=== PATIENT | male | born 1960 | race African-American/Black ===

== ENCOUNTER → 2017-04-20 | Outpatient (CLI) | payer OTHER ==
[~2017-04-20] MED LIST: ALBU8I INH; CLIN1CAP5 PO; VENTAER INH; albuterol sulfate INH
[2017-04-20 09:38] LABS: AUTOMATED NEUTROPHIL # 5.4 TH/MM3 (1.8-7.7); BASOPHIL % 0.5 % (0.0-2.0); EOSINOPHIL % 0.3 % (0.0-4.0); HEMATOCRIT 38.1 % (39.0-51.0); HEMO FLAGS DIFF FINAL; LYMPH % 9.8 % (9.0-44.0); LYMPHOCYTE # 0.7 TH/MM3 (1.0-4.8); MEAN CELL VOLUME 105.8 FL (80.0-100.0); MEAN CORPUSCULAR HEMOGLOBIN 35.9 PG (27.0-34.0); MONO % 10.3 % (0.0-8.0); NEUT % 79.1 % (16.0-70.0); PLATELET COUNT 242 TH/MM3 (150-450); WHITE BLOOD COUNT 6.9 TH/MM3 (4.0-11.0)
[2017-04-20 09:38] LABS: BLOOD, URINE NEG (NEG); GLUCOSE,URINE NEG (NEG); KETONE, URINE NEG (NEG); NITRITE,URINE NEG (NEG); URINE COLOR LIGHT-YELLOW (YELLW/STRAW)
[2017-04-20 09:43] LABS: COMMENT (UR) CULT NOT INDICATED; CULTURE IF INDICATED CULT NOT INDICATED
[2017-04-20 09:51] LABS: APTT (PATIENT) 27.8 SEC (24.3-30.1); INTERNATIONAL NORMALIZED RATIO 0.9 RATIO; PROTHROMBIN TIME - PATIENT 10.4 SEC (9.8-11.6)
--- NOTE | 2017-04-20 09:55 | RADRPT ---
EXAM DATE/TIME: 04/20/2017 09:29 [place] COMPARISON: No previous studies available for comparison. INDICATIONS : Evaluate for pneumonia, pneumothorax, or communicable disease. Pre op for descending colectomy. MEDICAL HISTORY : Asthma. 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 Colon CA. SURGICAL HISTORY : Lymph node removed removed from left neck. ENCOUNTER: Initial ACUITY: 1 day PAIN SCORE: 0/10 LOCATION: chest FINDINGS: PA and lateral views of the chest demonstrate the lungs to be symmetrically aerated without evidence of mass, infiltrate or effusion. The cardiomediastinal contours are unremarkable. Osseous structure s are intact. CONCLUSION: Normal examination for a patient of this age. Adriel Osuna MD on April 20, 2017 at 9:53 Board Certified Radiologist. This report was verified electronically.
[2017-04-20 10:12] LABS: ANION GAP 8 MEQ/L (5-15); AST (GOT) 29 U/L (15-37); BICARBONATE 26.9 MEQ/L (21.0-32.0); BLOOD UREA NITROGEN 9 MG/DL (7-18); CHLORIDE 103 MEQ/L (98-107); GLOMERULAR FILTRATION RATE 117 ML/MIN (>89); GLUCOSE,FASTING 102 MG/DL (74-99); POTASSIUM 4.1 MEQ/L (3.5-5.1); SODIUM (NA) 138 MEQ/L (136-145)
[2017-04-20 10:22] LABS: ALKALINE PHOSPHATASE 86 U/L (45-117); ALT (GPT) 22 U/L (12-78); TOTAL BILIRUBIN ADULT 0.5 MG/DL (0.2-1.0)
--- NOTE | 2017-04-20 21:46 | EKG ---
Date Performed: 04/20/2017 Time Performed: 08:31:24 PTAGE: 56 years EKG: SINUS BRADYCARDIA BORDERLINE ECG PREVIOUS TRACING 02/02/2016 @ 12.54.52 Compared to prior tracing no significant change DOCTOR: Deandre Lam Interpretating Date/Time 04/20/2017 21:45:57
== END ==
LOC: CPRE 08:08
PROVIDERS: ATTEND Colon & Rectal Surgery
DX: Z01.810 Encounter for preprocedural cardiovascular examination (principal); Z01.811 Encounter for preprocedural respiratory examination; Z01.812 Encounter for preprocedural laboratory examination; C20 Malignant neoplasm of rectum; R94.31 Abnormal electrocardiogram [ECG] [EKG]
CPT/HCPCS: 36415; 71020; 80053; 81001; 82378; 85025; 85610; 85730; 93005

== ENCOUNTER 2017-04-27 11:20 | Inpatient (IN) | payer OTHER ==
[~2017-04-27] VITALS: Ht 176.5 cm; Wt 57.7 kg
[~2017-04-27 11:20] MED LIST changes: -ALBU8I INH; -CLIN1CAP5 PO; -albuterol sulfate INH
[2017-04-27] MEDS ORDERED: DEXT 5%-NACL 0.9% 1000 ML INJ 1,000 ML IV SCH (12:30)
[2017-04-27] MEDS ORDERED: LACTATED RINGER'S 1000 ML IV PRN (12:30)
[2017-04-27] MEDS ORDERED: ceFAZolin 1,000 MG/NS 100 ML IV SCH ×2 (12:30)
[2017-04-27] MEDS ORDERED: INSULIN HUMAN REGULAR 1,000 UNITS/10 ML VIAL SQ PRN (12:30)
[2017-04-27] MEDS ORDERED: ALVIMOPAN 12 MG CAPSULE - On Call PO SCH (12:30)
[2017-04-27] MEDS ORDERED: CHLORHEXIDINE GLUCONATE 2 % 1 PACK (2 CLOTHS) TOPICAL PRN (12:30)
[2017-04-27] MEDS ORDERED: SODIUM CHLORID 0.9% 500 ML IV PRN (12:30)
[2017-04-27] MEDS ORDERED: METOPROLOL TARTRATE 25 MG TAB PO PRN (12:30)
[2017-04-27] MEDS ORDERED: METRONIDAZOLE 500 MG/100 ML ISONTONIC SOLN IV SCH (12:30)
[2017-04-27] MEDS ORDERED: POVIDONE IODINE 5% (ANTISEPSIS KIT) 4 APPLICATIONS EACH NARE PRN (12:30)
[2017-04-27] MEDS ORDERED: ACETAMINOPHEN 1000 MG/100 ML 100 ML IV ONE (13:03)
[2017-04-27] MEDS ORDERED: FAMOTIDINE 20 MG/2 ML VIAL ONE (13:04)
[2017-04-27] MEDS ORDERED: HYDROmorphone HCL PF 2 MG/ML VIAL ONE (14:47)
[2017-04-27] MEDS ORDERED: SUGAMMADEX SODIUM 200 MG/2 ML VIAL IV PUSH ONE ×2 (14:47)
[2017-04-27] MEDS ORDERED: DO NOT ADM ANY ANTICOAGULANT DRUGS PRN (15:48)
[2017-04-27] MEDS ORDERED: MORPHINE SULFATE 30 MG/30 ML PCA IV SCH (16:00)
[2017-04-27] MEDS ORDERED: ONDANSETRON HCL 4 MG/2 ML VIAL IV PUSH PRN (16:00)
[2017-04-27] MEDS ORDERED: Post-op Orders (for Pharmacy) MISC XX ONE (16:00)
[2017-04-27] MEDS ORDERED: ENALAPRILAT 1.25 MG/ML VIAL IV PUSH PRN (16:00)
[2017-04-27] MEDS ORDERED: BENZOCAINE 6 MG/MENTHOL 10 MG LOZENGE BUCCAL PRN (16:00)
[2017-04-27] MEDS ORDERED: SODIUM CHLORIDE 0.9% FLUSH 10 ML FLUSH IV FLUSH PRN (16:00)
[2017-04-27] MEDS ORDERED: NALOXONE HCL 0.4 MG/ML AMP IV PUSH PRN (16:00)
[2017-04-27] MEDS ORDERED: POTASSIUM CHLOR 40 MEQ PREMIX 100 ML IV PRN (16:00)
[2017-04-27] MEDS ORDERED: ZOLPIDEM TARTRATE 5 MG TAB PO PRN (16:00)
[2017-04-27] MEDS ORDERED: POTASSIUM CHLOR 20 MEQ PREMIX 100 ML IV PRN (16:00)
[2017-04-27] MEDS ORDERED: D5-NS + KCL 20 MEQ INJ 1,000 ML ONE (16:05)
[2017-04-27] MEDS ORDERED: *morphine SULFATE 8 MG/ML PERIprocedure ONLY ONE ×2 (16:24→17:17)
[2017-04-27 16:46] LABS: AUTOMATED NEUTROPHIL # 8.9 TH/MM3 (1.8-7.7); BASOPHIL % 0.2 % (0.0-2.0); EOSINOPHIL # 0.1 TH/MM3 (0-0.4); EOSINOPHIL % 0.9 % (0.0-4.0); HEMATOCRIT 38.7 % (39.0-51.0); HEMO FLAGS DIFF FINAL; LYMPH % 4.6 % (9.0-44.0); LYMPHOCYTE # 0.4 TH/MM3 (1.0-4.8); MEAN CELL VOLUME 105.8 FL (80.0-100.0); MEAN CORPUSCULAR HEMOGLOBIN 34.9 PG (27.0-34.0); MONO % 2.4 % (0.0-8.0); NEUT % 91.9 % (16.0-70.0); PLATELET COUNT 230 TH/MM3 (150-450); RED BLOOD COUNT 3.66 MIL/MM3 (4.50-5.90); RED CELL DISTRIBUTION WIDTH 12.5 % (11.6-17.2); WHITE BLOOD COUNT 9.7 TH/MM3 (4.0-11.0)
[2017-04-27 17:00] LABS: BICARBONATE 22.6 MEQ/L (21.0-32.0); POTASSIUM 3.6 MEQ/L (3.5-5.1)
[2017-04-27] MEDS: D5-LR + KCL 20 MEQ INJ 1,000 ML IV SCH (17:11)
[2017-04-27] MEDS: METOCLOPRAMIDE HCL 10 MG/2 ML VIAL IVS SCH (17:54)
[2017-04-27 19:00] VITALS: BP 124/75; PULSE 67; PULSE 70; RESP 18; TEMP 97.9; O2SAT 100
[2017-04-27 20:00] VITALS: PULSE 64
[2017-04-27 21:00] VITALS: PULSE 78
[2017-04-27] MEDS: SODIUM CHLORIDE 0.9% FLUSH 10 ML FLUSH IV FLUSH SCH (21:00)
[2017-04-27 22:00] VITALS: PULSE 66; RESP 18
[2017-04-27] MEDS: PCA - TOTAL MG MORPHINE DELIVERED PER SHIFT SCH (22:00)
[2017-04-27] MEDS: ceFAZolin 2 GM PREMIX 50 ML IV SCH (22:06)
[2017-04-27] MEDS: FUROSEMIDE 20 MG/2 ML VIAL IV PUSH SCH (22:06)
[2017-04-27 23:00] VITALS: BP 117/71; PULSE 75; PULSE 80; RESP 18; TEMP 99.2; O2SAT 97
[2017-04-27] MEDS: metroNIDAZOLE 500 MG INJ 100 ML IV SCH (23:15)
[2017-04-28] VITALS (20 sets, daily range): BP systolic 110–119; BP diastolic 55–70; PULSE 68–89; RESP 17–19; TEMP 96.6–99.1; O2SAT 94–99
[2017-04-28] MEDS: METOCLOPRAMIDE HCL 10 MG/2 ML VIAL IVS SCH ×5 (00:38→23:09)
[2017-04-28] MEDS: ceFAZolin 2 GM PREMIX 50 ML IV SCH ×2 (05:24→12:58)
[2017-04-28 05:25] LABS: AUTOMATED NEUTROPHIL # 12.4 TH/MM3 (1.8-7.7); BASOPHIL % 0.2 % (0.0-2.0); HEMATOCRIT 34.7 % (39.0-51.0); HEMO FLAGS DIFF FINAL; LYMPH % 3.6 % (9.0-44.0); LYMPHOCYTE # 0.5 TH/MM3 (1.0-4.8); MEAN CELL VOLUME 105.1 FL (80.0-100.0); MEAN CORPUSCULAR HEMOGLOBIN 34.9 PG (27.0-34.0); MEAN CORPUSCULAR HGB CONC 33.3 % (32.0-36.0); MONO % 5.4 % (0.0-8.0); NEUT % 90.8 % (16.0-70.0); PLATELET COUNT 226 TH/MM3 (150-450); RED BLOOD COUNT 3.31 MIL/MM3 (4.50-5.90); RED CELL DISTRIBUTION WIDTH 12.2 % (11.6-17.2); WHITE BLOOD COUNT 13.7 TH/MM3 (4.0-11.0)
[2017-04-28 05:57] LABS: BICARBONATE 24.4 MEQ/L (21.0-32.0)
[2017-04-28] MEDS: PCA - TOTAL MG MORPHINE DELIVERED PER SHIFT SCH ×2 (06:00→14:00)
[2017-04-28] MEDS: metroNIDAZOLE 500 MG INJ 100 ML IV SCH ×2 (06:10→14:00)
[2017-04-28] MEDS: ALBUTEROL SULFATE 90 MCG/ACT HFA 8 GM INHALER INH PRN ×2 (06:41→14:13)
[2017-04-28] MEDS: PANTOPRAZOLE SODIUM 40 MG VIAL IVP SCH (08:08)
[2017-04-28] MEDS: FUROSEMIDE 20 MG/2 ML VIAL IV PUSH SCH ×2 (08:09→22:23)
--- NOTE | 2017-04-28 08:17 | MP ---
cc: PAULETTE VILLASENOR MD, JOHN T. M.D. PARLI, DR. DATE OF SURGERY 04/27/2017 PREOPERATIVE DIAGNOSIS Rectal cancer POSTOPERATIVE DIAGNOSIS Rectal cancer PROCEDURE 1. Descending colon, sigmoid colon and a rectal resection with low anterior anastomosis. 2. Mobilization of the splenic flexure. 3. Diverting loop ileostomy. ANESTHESIA General tracheal SURGEON Arun Bolton MD LOCAL SALES ASSOCIATE Kenneth Desai MD ESTIMATED BLOOD LOSS 50 cc. OPERATING TIME One hour and 30 minutes. 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 He also was diagnosed at that time with a synchronous rectal cancer. The patient underwent radiation therapy for his had neck lesion and then underwent eventual radiation therapy and chemotherapy for the rectal lesion. The treatment between was delayed somewhat due to the patient and his radiation to his rectum was completed in October of this year. Once that was done, approximately two to three months later, he was evaluated and underwent colonoscopy and biopsy of the residual rectal ulcer which came back as adenocarcinoma residual about two months ago. The patient somewhat delayed his surgery and is now presenting for a low anterior resection. At surgery, exploration of the abdominal cavity revealed that the liver was palpably normal as was the gallbladder. The remainder of the colon and the small bowel, the stomach, pancreas and left kidney were all identified and were normal as well. A full left colectomy was done with a low colorectal anastomosis in the very lower third of the rectum. For this reason, a diverting loop ileostomy was also done which will be temporary. He also underwent splenic flexure mobilization. OPERATING TIME One hour and 30 minutes OPERATIVE TECHNIQUE The patient was placed on the table in the supine position. After adequate general endotracheal anesthesia, the legs were placed in the perineal lithotomy position and the abdomen and perineum were prepped and draped in the usual manner. A midline incision was made from the pubis to the xiphoid on the right side of the umbilicus and carried down through the linea alba and the peritoneal cavity was entered with the above-mentioned findings. Our attention was turned to the sigmoid colon which was mobilized along its peritoneal reflection as was the descending colon and the splenic flexure mobilizing the full splenic flexure and the transverse colon and the omentum from the transverse colon. The sigmoid and would was mobilized down to her rectum and then the left ureter was identified and protected at all times. The inferior mesenteric artery was identified at its takeoff at the bifurcation of the aorta and was doubly clamped, cut and doubly ligated with 0 Vicryl ligature along with the inferior mesenteric vein. Next, the dissection was taken down posteriorly in the retrorectal space to the pelvic floor and then laterally and the lateral pelvic peritoneum was incised bilaterally, identifying both ureters and protecting them at all times. Once the dissection was taken down posterior and laterally, the anterior cul-de-sac was entered and Denonvilliers fascia was divided posterior to the prostate and the dissection was taken down anteriorly to the pelvic floor as well. The lesion was below the cul-de-sac at about 9-10 cm and approximately a 3 cm to 4 cm margin was able to be obtained. A total mesenteric excision was done and the rectum was cleared and the rectum was then divided in its lower third with a contour stapling device. Once this was accomplished, our previously mobilized descending colon and splenic flexure was further mobilized and the dissection was taken up to the middle colic vessels and the marginal vessels. The bowel was then measured for length and was of good quality and the descending colon was divided after placing a pursestring stapling device. The anvil of the 33 Ethicon EEA stapling device was placed in the proximal bowel and the proximal pursestring was tied. Dr. Desai then went below and placed the EEA instrument transanally and the EEA was brought out through the midportion of the contour staple line and the trocar was brought through near one corner and that corner was included in the circular excision. The instrument was connected, closed and fired creating the circumferential anastomosis and both donuts were complete. There was no tension on the anastomosis and the blood supply was excellent. Dr. Desai then did proctosigmoidoscopy insufflating air into the lower rectum and sigmoid colon with saline solution in the pelvis and no air leaks were identified. The abdominal cavity and pelvis with any irrigated with several liters of saline solution, aspirated clean. Hemostasis was maintained throughout with electrocautery and ligature. The patient was very thin and had a very wispy omentum, but the previously mobilized omentum was brought down the left colic gutter and placed in the pelvis. Next, the place for ileostomy was chosen proximal to the ileocecal valve about 6 inches. An opening in the mesentery was made and then a stoma site was made in the right lower quadrant in the lateral portion of the rectus muscle. The ileum was brought out of this stoma site and then the bowels were replaced in abdominal cavity in an field organizer manner. The abdominal cavity was closed in a single layer using double-stranded #1 PDS for the midline. The subcutaneous tissue was irrigated thoroughly with saline solution, aspirated dry and the skin was closed with running 3-0 Vicryl subcuticular suture. The distal limb of the ileostomy was stapled closed with a TX 30 and then the proximal limb was matured with interrupted 3-0 Vicryl sutures creating a 2-1/2 cm nipple and a 57-mm ileostomy appliance was placed. Dressings were applied. Sponge, needle and a counts reported as correct. The estimated blood loss was 50 cc. Operating time was one our and 30 minutes. The patient tolerated the procedure well and left the operating room in good condition. MD BELA Ramos/WILVER /5:01 PM /7:48 AM
[2017-04-28] MEDS: ACETAMINOPHEN/HYDROcodone 325 MG/5 MG TAB PO PRN ×4 (08:58→21:54)
[2017-04-28] MEDS: SODIUM CHLORIDE 0.9% FLUSH 10 ML FLUSH IV FLUSH SCH ×2 (08:59→21:00)
[2017-04-28] MEDS ORDERED: ALVIMOPAN 12 MG CAPSULE - Post-op dosing PO SCH (09:00)
[2017-04-28] MEDS: D5-LR + KCL 20 MEQ INJ 1,000 ML IV SCH ×3 (11:20→22:01)
--- NOTE | 2017-04-28 16:40 | HHI.PR ---
Subjective Remarks Stable. Pain controlled with PO meds. Objective Vital Signs Date Time Temp Pulse Resp B/P (MAP) Pulse Ox O2 Delivery O2 Flow Rate FiO2 04/28/17 15:00 71 04/28/17 15:00 98.8 83 18 117/69 (85) 98 04/28/17 14:18 17 04/28/17 14:00 17 04/28/17 14:00 86 04/28/17 14:00 17 04/28/17 13:00 68 04/28/17 12:00 74 04/28/17 11:00 89 04/28/17 11:00 98.6 79 17 114/70 (85) 96 04/28/17 10:00 84 04/28/17 09:00 88 04/28/17 08:00 80 04/28/17 07:15 77 04/28/17 07:00 98.7 83 18 112/62 (79) 97 04/28/17 06:00 18 04/28/17 06:00 75 04/28/17 06:00 18 04/28/17 05:00 77 04/28/17 04:00 76 04/28/17 03:00 99.1 78 18 110/55 (73) 99 04/28/17 03:00 78 04/28/17 02:00 74 04/28/17 01:00 70 04/28/17 00:00 70 04/27/17 23:00 99.2 75 18 117/71 (86) 97 04/27/17 23:00 80 04/27/17 22:07 18 04/27/17 22:00 18 04/27/17 22:00 66 04/27/17 22:00 18 04/27/17 21:00 78 04/27/17 20:00 64 04/27/17 19:00 97.9 70 18 124/75 (91) 100 04/27/17 19:00 18 04/27/17 19:00 67 04/27/17 18:20 98.0 65 20 144/72 (96) 100 Nasal Cannula 2 04/27/17 18:00 65 20 144/72 (96) 100 Nasal Cannula 2 04/27/17 17:11 20 04/27/17 17:00 73 20 144/64 (90) 99 Nasal Cannula 2 04/27/17 16:45 70 20 154/74 (100) 99 Nasal Cannula 2 I/O 04/27/17 04/27/17 04/27/17 04/28/17 04/28/17 04/28/17 07:00 15:00 23:00 07:00 15:00 23:00 Intake Total 1908 ml 2719 ml 50 ml Output Total 205 ml 2020 ml Balance 1703 ml 699 ml 50 ml Intake Oral 0 ml IV Total 8 ml 2719 ml 50 ml Other 1900 ml Output Urine Total 75 ml 1900 ml Stool Total 0 ml Drainage Total 80 ml 120 ml Estimated Blood Loss 50 ml Result Diagram: 04/28/17 0444 04/28/17 0444 Objective Remarks VS-S Abd: flat,soft,dressing dry Labs:OK I&Os:OK Assessment and Plan Assessment and Plan Stable POD#1 Transfer.CLD,Decrease IVs. D/C mimi ro AM MeadeArun gonsalves MD Apr 28, 2017 16:40
--- NOTE | 2017-04-28 16:42 | PD.WCN.NOT ---
Wound Consult Description: Consult for New Ostomy Teaching of temporary ostomy per Dr Bolton Communicated with: Patient Recommendation: Empty pouch of effluent when 1/3-1/2 full Read information packet left at bedside Follow up on Monday Additional Information: Patient seen on for new right sided loop ileostomy with binder noted to abdomen. Ostomy Type: Other (Loop ileostomy) Surgeon: Arun Bolton MD Date of Surgery: Apr 27, 2017 Complete: Education materials ([employer]), Rx (left on chart) Educated patient on: Drinking plenty of fluids Ambulating Emptying pouch when 1/3-1/2 full Changing wafer and pouch Read information left at bedside Write down any questions you may have for the Physician/sanitary inspector to answer this evening and Monday Stoma appearance and function. Additional information Patient seen on for Ostomy assessment. Stoma is noted to the right side abdomen with long protrusion, red, moist, edematous, functioning with green liquid noted in pouch that is intact and measuring 1 3/4". Ileostomy kit left at bedside with educational materials available when ready to read. Script left on chart. Aaliyah Magaña [facility] Apr 28, 2017 16:42
[2017-04-28] MEDS: ALVIMOPAN 12 MG CAPSULE PO SCH (22:22)
[2017-04-29] VITALS: BP 114/58; PULSE 88; RESP 20; TEMP 98.4; O2SAT 96
[2017-04-29] MEDS: ALBUTEROL SULFATE 90 MCG/ACT HFA 8 GM INHALER INH PRN (05:10)
[2017-04-29] MEDS: METOCLOPRAMIDE HCL 10 MG/2 ML VIAL IVS SCH ×4 (05:31→23:14)
[2017-04-29] MEDS: ACETAMINOPHEN/HYDROcodone 325 MG/5 MG TAB PO PRN ×5 (05:32→23:15)
[2017-04-29 07:49] LABS: AUTOMATED NEUTROPHIL # 7.8 TH/MM3 (1.8-7.7); BASOPHIL % 0.3 % (0.0-2.0); EOSINOPHIL # 0.1 TH/MM3 (0-0.4); EOSINOPHIL % 0.7 % (0.0-4.0); HEMATOCRIT 35.8 % (39.0-51.0); HEMO FLAGS DIFF FINAL; LYMPH % 3.4 % (9.0-44.0); LYMPHOCYTE # 0.3 TH/MM3 (1.0-4.8); MEAN CELL VOLUME 105.9 FL (80.0-100.0); MEAN CORPUSCULAR HEMOGLOBIN 36.2 PG (27.0-34.0); MEAN CORPUSCULAR HGB CONC 34.2 % (32.0-36.0); MONO % 7.7 % (0.0-8.0); NEUT % 87.9 % (16.0-70.0); PLATELET COUNT 220 TH/MM3 (150-450); RED BLOOD COUNT 3.38 MIL/MM3 (4.50-5.90); WHITE BLOOD COUNT 8.9 TH/MM3 (4.0-11.0)
[2017-04-29 08:00] VITALS: BP 115/66; PULSE 102; RESP 16; TEMP 99.9; O2SAT 93
[2017-04-29 08:10] LABS: BICARBONATE 28.8 MEQ/L (21.0-32.0); POTASSIUM 3.9 MEQ/L (3.5-5.1)
[2017-04-29] MEDS: FUROSEMIDE 20 MG/2 ML VIAL IV PUSH SCH ×2 (08:17→21:33)
[2017-04-29] MEDS: ALVIMOPAN 12 MG CAPSULE PO SCH ×2 (08:18→21:33)
[2017-04-29] MEDS: SODIUM CHLORIDE 0.9% FLUSH 10 ML FLUSH IV FLUSH SCH ×2 (08:18→21:32)
[2017-04-29] MEDS: PANTOPRAZOLE SODIUM 40 MG VIAL IVP SCH (08:18)
[2017-04-29] MEDS: D5-LR + KCL 20 MEQ INJ 1,000 ML IV SCH ×2 (08:18→21:34)
[2017-04-29 12:00] VITALS: BP 120/61; PULSE 87; RESP 17; TEMP 99; O2SAT 98
--- NOTE | 2017-04-29 12:02 | HHI.PR ---
Subjective Remarks POD #2 s/p LAR with diversion comfortable Objective Vital Signs Date Time Temp Pulse Resp B/P (MAP) Pulse Ox O2 Delivery O2 Flow Rate FiO2 04/29/17 08:00 99.9 102 16 115/66 (82) 93 04/29/17 00:00 98.4 88 20 114/58 (76) 96 04/28/17 20:00 96.6 79 19 119/67 (84) 94 04/28/17 17:00 76 04/28/17 16:00 72 04/28/17 15:00 71 04/28/17 15:00 98.8 83 18 117/69 (85) 98 04/28/17 14:18 17 04/28/17 14:00 17 04/28/17 14:00 86 04/28/17 14:00 17 04/28/17 13:00 68 I/O 04/28/17 04/28/17 04/28/17 04/29/17 04/29/17 04/29/17 07:00 15:00 23:00 07:00 15:00 23:00 Intake Total 2719 ml 150 ml 1880 ml 729 ml Output Total 2020 ml 1975 ml 1495 ml Balance 699 ml 150 ml -95 ml -766 ml Intake Oral 0 ml 880 ml 240 ml IV Total 2719 ml 150 ml 1000 ml 489 ml Output Urine Total 1900 ml 1900 ml 425 ml Stool Total 0 ml 1000 ml Drainage Total 120 ml 75 ml 70 ml Result Diagram: 04/29/17 0728 04/29/17727 Objective Remarks Abdomen soft, nondistended, mildly tender Wound clean Ileostomy pink, slight prolapse Assessment and Plan Assessment and Plan Advance diet Decrease IVF Mobilize Isabella Horne MD Apr 29, 2017 12:02
[2017-04-29 16:00] VITALS: BP 132/68; PULSE 84; RESP 17; TEMP 99.3; O2SAT 96
[2017-04-29 20:00] VITALS: BP 137/57; PULSE 86; RESP 17; TEMP 98.4; O2SAT 92
[2017-04-30] VITALS: BP 100/63; PULSE 84; RESP 17; TEMP 98.3; O2SAT 93
[2017-04-30] MEDS: ACETAMINOPHEN/HYDROcodone 325 MG/5 MG TAB PO PRN ×4 (03:44→19:52)
[2017-04-30] MEDS: METOCLOPRAMIDE HCL 10 MG/2 ML VIAL IVS SCH ×3 (04:47→17:41)
[2017-04-30 08:00] VITALS: BP 119/68; PULSE 67; RESP 17; TEMP 99.1; O2SAT 96
[2017-04-30] MEDS: PANTOPRAZOLE SODIUM 40 MG VIAL IVP SCH (09:41)
[2017-04-30] MEDS: ALBUTEROL SULFATE 90 MCG/ACT HFA 8 GM INHALER INH PRN (09:41)
[2017-04-30] MEDS: ALVIMOPAN 12 MG CAPSULE PO SCH (09:41)
[2017-04-30] MEDS: FUROSEMIDE 20 MG/2 ML VIAL IV PUSH SCH (09:42)
[2017-04-30] MEDS: SODIUM CHLORIDE 0.9% FLUSH 10 ML FLUSH IV FLUSH SCH ×2 (09:42→19:52)
--- NOTE | 2017-04-30 11:27 | HHI.PR ---
Subjective Remarks POD #3 s/p LAR with diversion comfortable, reports a lot of loose stools with difficulty in control Objective Vital Signs Date Time Temp Pulse Resp B/P (MAP) Pulse Ox O2 Delivery O2 Flow Rate FiO2 04/30/17 08:00 99.1 67 17 119/68 (85) 96 04/30/17 00:00 98.3 84 17 100/63 (75) 93 04/29/17 20:00 98.4 86 17 137/57 (83) 92 04/29/17 16:00 99.3 84 17 132/68 (89) 96 04/29/17 12:00 99.0 87 17 120/61 (80) 98 I/O 04/29/17 04/29/17 04/29/17 04/30/17 04/30/17 04/30/17 07:00 15:00 23:00 07:00 15:00 23:00 Intake Total 729 ml 1140 ml 774 ml Output Total 1495 ml 1100 ml 330 ml Balance -766 ml 40 ml 444 ml Intake Oral 240 ml 1140 ml 240 ml IV Total 489 ml 534 ml Output Urine Total 425 ml Stool Total 1000 ml 1100 ml 300 ml Drainage Total 70 ml 30 ml # Voids 4 2 Result Diagram: 04/29/1772704/29/17727 Objective Remarks Abdomen soft, nondistended, mildly tender Wound clean Ileostomy pink, slight prolapse Assessment and Plan Assessment and Plan Advance diet Decrease IVF Mobilize Possibly home soon Isabella Horne MD Apr 30, 2017 11:27
[2017-04-30 12:00] VITALS: BP 102/62; PULSE 99; RESP 18; TEMP 98; O2SAT 94
[2017-04-30 16:00] VITALS: BP 128/83; PULSE 86; RESP 18; TEMP 99.3; O2SAT 97
[2017-04-30 20:00] VITALS: BP 109/63; PULSE 86; RESP 18; TEMP 98.6; O2SAT 94
[2017-05-01] VITALS: BP 118/72; PULSE 77; RESP 18; TEMP 97.9; O2SAT 95
[2017-05-01] MEDS: ACETAMINOPHEN/HYDROcodone 325 MG/5 MG TAB PO PRN ×5 (01:19→18:50)
[2017-05-01] MEDS: METOCLOPRAMIDE HCL 10 MG/2 ML VIAL IVS SCH ×2 (01:21→06:23)
[2017-05-01] MEDS: D5-LR + KCL 20 MEQ INJ 1,000 ML IV SCH ×2 (01:28→23:59)
[2017-05-01 08:00] VITALS: BP 108/65; PULSE 78; RESP 16; TEMP 97.2; O2SAT 97
[2017-05-01] MEDS ORDERED: PANTOPRAZOLE SOD 40 MG DELAYED RELEASE TAB PO SCH (09:00)
[2017-05-01] MEDS: SODIUM CHLORIDE 0.9% FLUSH 10 ML FLUSH IV FLUSH SCH ×2 (09:06→20:42)
[2017-05-01] MEDS: PANTOPRAZOLE SODIUM 40 MG VIAL IVP SCH (09:06)
[2017-05-01] MEDS ORDERED: LOPERAMIDE HCL 2 MG CAP PO ONE (10:00)
--- NOTE | 2017-05-01 10:03 | HHI.PR ---
Subjective Remarks Stable. Pain controlled with PO meds. Appliance loose beginning to leak Objective Vital Signs Date Time Temp Pulse Resp B/P (MAP) Pulse Ox O2 Delivery O2 Flow Rate FiO2 05/01/17 08:00 97.2 78 16 108/65 (79) 97 05/01/17 00:00 97.9 77 18 118/72 (87) 95 04/30/17 20:30 18 04/30/17 20:00 98.6 86 18 109/63 (78) 94 04/30/17 16:00 99.3 86 18 128/83 (98) 97 04/30/17 12:00 98.0 99 18 102/62 (75) 94 I/O 04/30/17 04/30/17 04/30/17 05/01/17 05/01/17 05/01/17 07:00 15:00 23:00 07:00 15:00 23:00 Intake Total 774 ml 1530 ml 750 ml Output Total 330 ml 900 ml 740 ml Balance 444 ml 630 ml 10 ml Intake Oral 240 ml 960 ml 320 ml IV Total 534 ml 570 ml 430 ml Stool Total 300 ml 900 ml 700 ml Drainage Total 30 ml 40 ml # Voids 2 4 3 Result Diagram: 04/29/1772704/29/17727 Objective Remarks VS-S Abd: flat,soft,wound clean. Stooling. Appliance loose. I&Os:OK Assessment and Plan Assessment and Plan Stable POD#4 Add Metamucil. Check labs. Stoma teaching [facility]. Remove drain today Arun Bolton MD May 01, 2017 10:03
[2017-05-01 12:00] VITALS: BP 95/54; PULSE 80; RESP 16; TEMP 97.3; O2SAT 95
[2017-05-01 12:31] LABS: AUTOMATED NEUTROPHIL # 6.8 TH/MM3 (1.8-7.7); BASOPHIL % 0.3 % (0.0-2.0); EOSINOPHIL # 0.4 TH/MM3 (0-0.4); HEMATOCRIT 33.3 % (39.0-51.0); HEMO FLAGS DIFF FINAL; LYMPH % 3.6 % (9.0-44.0); LYMPHOCYTE # 0.3 TH/MM3 (1.0-4.8); MEAN CELL VOLUME 104.9 FL (80.0-100.0); MEAN CORPUSCULAR HEMOGLOBIN 35.6 PG (27.0-34.0); MEAN CORPUSCULAR HGB CONC 33.9 % (32.0-36.0); MONO % 9.8 % (0.0-8.0); NEUT % 81.3 % (16.0-70.0); PLATELET COUNT 261 TH/MM3 (150-450); RED BLOOD COUNT 3.17 MIL/MM3 (4.50-5.90); RED CELL DISTRIBUTION WIDTH 11.9 % (11.6-17.2); WHITE BLOOD COUNT 8.3 TH/MM3 (4.0-11.0)
[2017-05-01 12:46] LABS: BICARBONATE 27.7 MEQ/L (21.0-32.0)
[2017-05-01] MEDS: PSYLLIUM FIBER SF/GF 6 GM POWD PKT PO SCH (14:32)
--- NOTE | 2017-05-01 15:14 | PD.WCN.NOT ---
Wound Consult Description: Consult for New Ostomy Teaching of temporary ostomy per Dr Bolton Communicated with: DONNA Rizo Patient & Recommendation: Empty pouch of effluent when 1/3-1/2 full Read information packet left at bedside Follow up on Monday morning prior to discharge Additional Information: Patient seen on for Ostomy assessment and appliance change with teaching Ostomy Type: Other (Loop ileostomy) Surgeon: Arun Bolton MD Date of Surgery: Apr 27, 2017 Complete: Starter kit (Verbal consent obtained for kit to be sent to home), Education [facility] ([facility]), Rx (left on chart), Other (3 appliances ordered in size 2 1/4" and 2 appliances in size 1 3/4" stoma will decrease in size over 6-8 weeks) Educated patient on: Stoma appearance Function of stoma Drinking plenty of fluids to avoid dehydration Removing Barrier with adhesive removal wipes every 3-5 days and PRN Inspecting back side of removed barrier for breakdown Peristomal skin care with water only Sutures around stoma will dissolve and do not need to be removed Stoma is measuring 1 1/4" indicating that an appliance in size 2 1/4" or 1 3/4" can be used Attaching barrier to pouch Closing and opening pouch Emptying pouch every 3-4 hours, before bed, and PRN Diet Showering How to obtain supplies Additional information Patient seen on for Ostomy assessment and appliance change with teaching. Patients was at bedside and involved in the education and demonstration of the appliance change. Patient was resting comfortably in bed upon entering room. DONNA Rizo had obtained ostomy appliances in 2 sizes for barrier change today. Appliances were given to patient and his to practice with attaching the pouch to the barrier and opening and closing the pouches. Education was given as described above. Barrier was noted to be coming off patient abdomen from 11-3 o'clock. Pouch was emptied and left in bathroom for I& O's. Adhesive removal wipes were used to safely remove the remainder of the barrier from around stoma. The barrier was inspected for breakdown. Peristomal skin was cleansed with wet warm washcloth and noted to have a drain site removal opening in the skin @ 6 o'clock that was also cleansed. Education was given at this time for how to remove hair from around stoma using an electric razor to avoid ingrown hairs. Mucocutaneous junction is noted with sutures circumferentially and other vargas unremarkable. Stoma on right side of mid lower abdomen is red, moist, edematous, with long protrusion, functioning with soft dark green effluent, lumen noted in center of stoma. Stoma was measured @ 1 1/4 ". Barrier in size 2 1/4" was used at this time, however once the swelling goes down patient may need 1 3/4". Aaliyah Magaña [facility] May 01, 2017 15:14
[2017-05-01 16:00] VITALS: BP 98/55; PULSE 77; RESP 16; TEMP 96.4; O2SAT 95
[2017-05-01 20:00] VITALS: BP 99/65; PULSE 87; RESP 20; TEMP 96; O2SAT 98
[2017-05-02] VITALS: BP 87/50; PULSE 83; RESP 20; TEMP 99.2; O2SAT 100
[2017-05-02] MEDS: ACETAMINOPHEN/HYDROcodone 325 MG/5 MG TAB PO PRN ×6 (00:06→22:55)
[2017-05-02 04:41] VITALS: BP 100/60; PULSE 68
--- NOTE | 2017-05-02 07:08 | HHI.FF ---
Face to Face Verification Diagnosis: (1) Cancer of rectum (2) Ileostomy in place Home Health Nursing Order: Medical education Wound care and dressing changes Nursing assessment with vital signs Instructions: New Ileostomy teaching and supplies I have seen patient Trev Wade on 05/02/17. My clinical findings support the need for the requested home health care services because: Ltd mobility - disease progression Deconditioned w/ increased weakness Med compliance is questionable Limited ability to care for self Need for psychosocial assistance High risk of falls I certify that my clinical findings support that this patient is homebound because: Post-op weakness Unsteady gait/balance Unsafe to leave home unassisted Need for psychosocial assistance Arun Bolton MD May 02, 2017 07:08
[2017-05-02 08:00] VITALS: BP 101/59; PULSE 58; RESP 16; TEMP 96.3; O2SAT 98
[2017-05-02] MEDS: PANTOPRAZOLE SODIUM 40 MG VIAL IVP SCH (08:43)
[2017-05-02] MEDS: SODIUM CHLORIDE 0.9% FLUSH 10 ML FLUSH IV FLUSH SCH ×2 (08:44→21:00)
[2017-05-02] MEDS: PSYLLIUM FIBER SF/GF 6 GM POWD PKT PO SCH (08:47)
[2017-05-02 12:00] VITALS: BP 105/53; PULSE 66; RESP 16; TEMP 97.2; O2SAT 97
[2017-05-02 16:00] VITALS: BP 104/67; PULSE 81; RESP 16; TEMP 95.9; O2SAT 98
--- NOTE | 2017-05-02 16:30 | HHI.PR ---
Subjective Remarks Stable. Pain controlled with PO meds. Appliance intact. Objective Vital Signs Date Time Temp Pulse Resp B/P (MAP) Pulse Ox O2 Delivery O2 Flow Rate FiO2 05/02/17 12:00 97.2 66 16 105/53 (70) 97 05/02/17 09:43 18 05/02/17 08:00 96.3 58 16 101/59 (73) 98 05/02/17 04:41 68 100/60 (73) 05/02/17 00:00 99.2 83 20 87/50 (62) 100 05/01/17 20:00 96.0 87 20 99/65 (76) 98 I/O 05/01/17 05/01/17 05/01/17 05/02/17 05/02/17 05/02/17 07:00 15:00 23:00 07:00 15:00 23:00 Intake Total 750 ml 800 ml Output Total 740 ml 600 ml 300 ml Balance 10 ml 200 ml -300 ml Intake Oral 320 ml 800 ml IV Total 430 ml Stool Total 700 ml 600 ml 300 ml Drainage Total 40 ml # Voids 3 3 Result Diagram: 05/01/17 1150 05/01/17 1150 Objective Remarks VS-S Abd: flat,soft,wound clean. Stooling. I&Os:OK Labs:OK Assessment and Plan Assessment and Plan Stable POD#[address] [facility]. Probable D/C in [facility],Arun Abdul MD May 02, 2017 16:30
[2017-05-02 20:00] VITALS: BP 106/65; PULSE 73; RESP 18; TEMP 98.3; O2SAT 95
[2017-05-02] MEDS: D5-LR + KCL 20 MEQ INJ 1,000 ML IV SCH (22:55)
[2017-05-03] VITALS: BP 95/57; PULSE 65; RESP 18; TEMP 97.3; O2SAT 95
[2017-05-03] MEDS: D5-LR + KCL 20 MEQ INJ 1,000 ML IV SCH (00:40)
[2017-05-03] MEDS: ACETAMINOPHEN/HYDROcodone 325 MG/5 MG TAB PO PRN ×3 (03:15→11:46)
[2017-05-03] MEDS: SODIUM CHLORIDE 0.9% FLUSH 10 ML FLUSH IV FLUSH SCH (07:34)
[2017-05-03] MEDS: PANTOPRAZOLE SODIUM 40 MG VIAL IVP SCH (07:36)
[2017-05-03 08:00] VITALS: BP 103/58; PULSE 65; RESP 18; TEMP 97.9; O2SAT 97
[2017-05-03 08:37] VITALS: RESP 18
[2017-05-03] MEDS ORDERED: LOPERAMIDE HCL 2 MG CAP PO ONE (08:45)
[2017-05-03] MEDS: PSYLLIUM FIBER SF/GF 6 GM POWD PKT PO SCH (09:00)
[2017-05-03] MEDS ORDERED: HYDR-3533 PO (09:24)
[2017-05-03] MEDS ORDERED: LOPE-1 PO (09:26)
--- NOTE | 2017-05-03 15:51 | PD.WCN.NOT ---
Wound Consult Description: Consult for New Ostomy Teaching of temporary ostomy per Dr Bolton Communicated with: Patient [facility] home health care Recommendation: Empty pouch of effluent when 1/3-1/2 full Change appliance before leaks occur Wear binder for first hour after wafer change to assist in appliance adhering to abdomen Additional Information: Patient seen earlier today for wafer/pouch change prior to discharge. Ostomy Type: Other (Loop ileostomy) Surgeon: Arun Bolton MD Date of Surgery: Apr 27, 2017 Complete: Starter kit (Verbal consent obtained for kit to be sent to home), Education materials ([employer]), Rx (left on chart), Other (3 appliances ordered in size 2 1/4" and 2 appliances in size 1 3/4" stoma will decrease in size over 6-8 weeks) Educated patient on: Changing appliance when needed Emptying pouch and releasing air from pouch to avoid leaks and spontaneous removal of appliance Additional information Upon entering room, patient found to be sitting on edge of bed with bags packed ready to be discharged. When patient was asked how the appliance was holding up he said fine and began to show proposal manager writer the barrier/wafer. It was noted to be open at 3 o'clock with stoma visualized from outside of appliance. It was explained to the patient that he would have a mess soon if the appliance was not replaced. The patient began to say that he thought it should be replaced but that the nurse told him it would be fine. This was not the case as an entire finger could be placed between the patients abdomen and the wafer exposing the stoma to the outside. The wafer was removed and the peristomal skin was cleansed with water and thoroughly dried. Stoma paste was used near the surgical wound where the wafer had been lifted and was no longer attached previously. The peristomal area was inspected for breakdown, and noted to be unremarkable. Sutures were in place on the mucocutaneous junction. Stoma was red , moist, long protrusion, functioning with soft green effluent noted coming from lumen in center and pointing towards 7 o'clock. A new wafer and pouch in size 2 1/4" was obtained from the floor SPD room and placed. Binder was then placed around the patient to help hold appliance in place while he was waiting to be discharged. In the meantime, the patient and proposal manager writer spoke to the home health care agency regarding his visits. Pounds,Aaliyah [facility] May 03, 2017 15:51
== END 2017-05-03 14:45 | disposition home health service (06) | DRG 331 ==
LOC: HSDI 11:20 → HCPC 18:26 → N07A 04-28 19:09
PROVIDERS: ADMIT Colon & Rectal Surgery; ATTEND Colon & Rectal Surgery
PROC: 0DBP0ZZ Excision of Rectum, Open Approach (ICD-10-PCS; 2017-04-27)
PROC: 0DTM0ZZ Resection of Descending Colon, Open Approach (ICD-10-PCS; 2017-04-27)
PROC: 0DJD8ZZ Inspection of Lower Intestinal Tract, Via Natural or Artificial Opening Endoscopic (ICD-10-PCS; 2017-04-27)
PROC: 0D1B0Z4 Bypass Ileum to Cutaneous, Open Approach (ICD-10-PCS; principal; 2017-04-27 13:34)
PROC: 0DTN0ZZ Resection of Sigmoid Colon, Open Approach (ICD-10-PCS; 2017-04-27 13:34)
DX: C20 Malignant neoplasm of rectum (principal); J45.909 Unspecified asthma, uncomplicated; Z85.048 Personal history of other malignant neoplasm of rectum, rectosigmoid junction, and anus; Z87.891 Personal history of nicotine dependence; Z92.3 Personal history of irradiation
CPT/HCPCS: 80048; 85025; 86850; 86900; 86901; 88309; 94150; C9113; J0131; J0690; J1170; J1940; J2270; J2765; J3480; J7120

== ENCOUNTER → 2017-07-20 | Outpatient (CLI) | payer OTHER ==
[~2017-07-20] MED LIST changes: +HYDR-3516 PO; +HYDR-3533 PO; +LOPE-1 PO
[2017-07-20 09:14] LABS: AUTOMATED NEUTROPHIL # 4.4 TH/MM3 (1.8-7.7); BASOPHIL % 0.6 % (0.0-2.0); EOSINOPHIL # 0.4 TH/MM3 (0-0.4); EOSINOPHIL % 6.5 % (0.0-4.0); HEMATOCRIT 41.5 % (39.0-51.0); HEMOGLOBIN 13.8 GM/DL (13.0-17.0); LYMPH % 12.1 % (9.0-44.0); LYMPHOCYTE # 0.8 TH/MM3 (1.0-4.8); MEAN CELL VOLUME 103.9 FL (80.0-100.0); MEAN CORPUSCULAR HEMOGLOBIN 34.7 PG (27.0-34.0); MEAN CORPUSCULAR HGB CONC 33.4 % (32.0-36.0); MEAN PLATELET VOLUME 7.7 FL (7.0-11.0); MONO % 10.2 % (0.0-8.0); MONOCYTE # 0.6 TH/MM3 (0-0.9); NEUT % 70.6 % (16.0-70.0); PLATELET COUNT 288 TH/MM3 (150-450); RED BLOOD COUNT 3.99 MIL/MM3 (4.50-5.90); RED CELL DISTRIBUTION WIDTH 13.5 % (11.6-17.2); WHITE BLOOD COUNT 6.3 TH/MM3 (4.0-11.0)
[2017-07-20 09:16] LABS: BILIRUBIN, URINE NEG (NEG); BLOOD, URINE NEG (NEG); GLUCOSE,URINE NEG (NEG); HYALINE CAST, URINE 23 /lpf (RARE); KETONE, URINE NEG (NEG); MUCUS URINE FEW /lpf (OCC); NITRITE,URINE NEG (NEG); SQUAMOUS EPITHELIAL CELL URINE <1 /hpf (0-5); URINE COLOR YELLOW (YELLW/STRAW); URINE LEUKOCYTE ESTERASE NEG (NEG)
[2017-07-20 09:22] LABS: PROTHROMBIN TIME - PATIENT 9.9 SEC (9.8-11.6)
[2017-07-20 09:40] LABS: ALBUMIN 4.3 GM/DL (3.4-5.0); AST (GOT) 41 U/L (15-37); BICARBONATE 23.5 MEQ/L (21.0-32.0); BLOOD UREA NITROGEN 11 MG/DL (7-18); CALCIUM 9.7 MG/DL (8.5-10.1); CHLORIDE 108 MEQ/L (98-107); CREATININE 1.03 MG/DL (0.60-1.30); GLOMERULAR FILTRATION RATE 90 ML/MIN (>89); GLUCOSE,FASTING 88 MG/DL (74-99); SODIUM (NA) 138 MEQ/L (136-145)
[2017-07-20 09:44] LABS: ALKALINE PHOSPHATASE 120 U/L (45-117); ALT (GPT) 42 U/L (12-78); TOTAL BILIRUBIN ADULT 0.5 MG/DL (0.2-1.0); TOTAL PROTEIN 8.7 GM/DL (6.4-8.2)
== END ==
LOC: CPRE 07:55
PROVIDERS: ATTEND Colon & Rectal Surgery
DX: Z01.812 Encounter for preprocedural laboratory examination (principal); Z01.818 Encounter for other preprocedural examination; K94.19 Other complications of enterostomy
CPT/HCPCS: 36415; 80053; 81001; 85025; 85610; 85730

== ENCOUNTER 2017-07-27 11:55 | Inpatient (IN) | payer OTHER ==
[~2017-07-27] VITALS: Ht 175.3 cm; Wt 54.6 kg
[~2017-07-27 11:55] MED LIST changes: -HYDR-3516 PO; -HYDR-3533 PO; -LOPE-1 PO
[2017-07-27] MEDS ORDERED: DEXAMETHASONE SOD PHOS 4 MG/ML VIAL IV ONE (12:00)
[2017-07-27] MEDS ORDERED: PROPOFOL 200 MG/20 ML AMP IV ONE (12:00)
[2017-07-27] MEDS ORDERED: ONDANSETRON HCL 4 MG/2 ML VIAL IV ONE (12:00)
[2017-07-27] MEDS ORDERED: NEOSTIGMINE 5 MG/5 ML SYRINGE IV PUSH ONE (12:00)
[2017-07-27] MEDS ORDERED: PHENYLEPH/NS 1000 MCG/10 ML SYR IV ONE (12:00)
[2017-07-27] MEDS ORDERED: LIDOCAINE HCL 1% PF 5 ML SYRINGE OTHER ONE (12:00)
[2017-07-27] MEDS ORDERED: ROCURONIUM INJ 50 MG/5 ML SYRINGE IV PUSH ONE (12:00)
[2017-07-27] MEDS ORDERED: GLYCOPYRROLATE 1 MG/5 ML SYRINGE IV PUSH ONE (12:00)
[2017-07-27] MEDS ORDERED: LACTATED RINGER'S 1000 ML INJ 1,000 ML IV ONE (12:00)
[2017-07-27] MEDS ORDERED: SODIUM CHLORID 0.9% 500 ML IV PRN (13:30)
[2017-07-27] MEDS ORDERED: CHLORHEXIDINE GLUCONATE 2 % 1 PACK (2 CLOTHS) TOPICAL PRN (13:30)
[2017-07-27] MEDS ORDERED: POVIDONE IODINE 5% (ANTISEPSIS KIT) 4 APPLICATIONS EACH NARE PRN (13:30)
[2017-07-27] MEDS ORDERED: METRONIDAZOLE 500 MG/100 ML ISONTONIC SOLN IV SCH (13:30)
[2017-07-27] MEDS ORDERED: LACTATED RINGER'S 1000 ML IV PRN (13:30)
[2017-07-27] MEDS ORDERED: ceFAZolin 1,000 MG/NS 100 ML IV SCH ×2 (13:30)
[2017-07-27] MEDS ORDERED: INSULIN HUMAN REGULAR 1,000 UNITS/10 ML VIAL SQ PRN (13:30)
[2017-07-27] MEDS ORDERED: METOPROLOL TARTRATE 25 MG TAB PO PRN (13:30)
[2017-07-27] MEDS ORDERED: ALVIMOPAN 12 MG CAPSULE - On Call PO SCH (13:30)
[2017-07-27] MEDS ORDERED: DO NOT ADM ANY ANTICOAGULANT DRUGS PRN (17:26)
[2017-07-27] MEDS ORDERED: ACETAMINOPHEN 1000 MG/100 ML 100 ML IV ONE (17:32)
[2017-07-27] MEDS ORDERED: MIDAZOLAM HCL 2 MG/2 ML VIAL ONE (17:38)
[2017-07-27] MEDS: D5-LR + KCL 20 MEQ INJ 1,000 ML IV SCH (17:45)
[2017-07-27] MEDS: MORPHINE SULFATE 30 MG/30 ML PCA IV SCH (17:45)
[2017-07-27] MEDS ORDERED: HYDROmorphone HCL PF 2 MG/ML VIAL ONE (18:01)
[2017-07-27 18:15] LABS: AUTOMATED NEUTROPHIL # 5.1 TH/MM3 (1.8-7.7); BASOPHIL # 0.1 TH/MM3 (0-0.2); BASOPHIL % 0.8 % (0.0-2.0); EOSINOPHIL # 0.4 TH/MM3 (0-0.4); EOSINOPHIL % 5.9 % (0.0-4.0); HEMATOCRIT 37.2 % (39.0-51.0); HEMOGLOBIN 12.7 GM/DL (13.0-17.0); LYMPH % 13.2 % (9.0-44.0); LYMPHOCYTE # 0.9 TH/MM3 (1.0-4.8); MEAN CORPUSCULAR HEMOGLOBIN 35.2 PG (27.0-34.0); MEAN CORPUSCULAR HGB CONC 34.2 % (32.0-36.0); MEAN PLATELET VOLUME 7.2 FL (7.0-11.0); MONO % 7.9 % (0.0-8.0); MONOCYTE # 0.6 TH/MM3 (0-0.9); NEUT % 72.2 % (16.0-70.0); PLATELET COUNT 270 TH/MM3 (150-450); RED BLOOD COUNT 3.61 MIL/MM3 (4.50-5.90); RED CELL DISTRIBUTION WIDTH 12.9 % (11.6-17.2); WHITE BLOOD COUNT 7.1 TH/MM3 (4.0-11.0)
[2017-07-27 18:38] LABS: BICARBONATE 22.9 MEQ/L (21.0-32.0); CALCIUM 8.7 MG/DL (8.5-10.1); CREATININE 0.95 MG/DL (0.60-1.30)
[2017-07-27] MEDS ORDERED: BENZOCAINE 6 MG/MENTHOL 10 MG LOZENGE BUCCAL PRN (18:45)
[2017-07-27] MEDS ORDERED: NALOXONE HCL 0.4 MG/ML AMP IV PUSH PRN (18:45)
[2017-07-27] MEDS ORDERED: SODIUM CHLORIDE 0.9% FLUSH 10 ML FLUSH IV FLUSH PRN (18:45)
[2017-07-27] MEDS ORDERED: ONDANSETRON HCL 4 MG/2 ML VIAL IV PUSH PRN (18:45)
[2017-07-27] MEDS ORDERED: ACETAMINOPHEN/HYDROcodone 325 MG/5 MG TAB PO PRN (18:45)
[2017-07-27] MEDS ORDERED: POTASSIUM CHLOR 40 MEQ PREMIX 100 ML IV PRN (19:00)
[2017-07-27] MEDS ORDERED: Post-op Orders (for Pharmacy) XX ONE (19:00)
[2017-07-27] MEDS ORDERED: ALBUTEROL SULFATE 90 MCG/ACT HFA 18 GM INHALER INH PRN (19:00)
[2017-07-27] MEDS ORDERED: POTASSIUM CHLOR 20 MEQ PREMIX 100 ML IV PRN (19:00)
[2017-07-27] MEDS ORDERED: ENALAPRILAT 1.25 MG/ML VIAL IV PUSH PRN (19:00)
[2017-07-27] MEDS: METOCLOPRAMIDE HCL 10 MG/2 ML VIAL IVS SCH (19:20)
[2017-07-27] MEDS: SODIUM CHLORIDE 0.9% FLUSH 10 ML FLUSH IV FLUSH SCH (21:00)
[2017-07-27 21:15] VITALS: BP 130/87; PULSE 73; RESP 18; TEMP 97.1; O2SAT 95
[2017-07-27] MEDS: DEXT 5%-NACL 0.9% 1000 ML INJ 1,000 ML IV SCH (21:30)
[2017-07-27] MEDS: PCA - TOTAL MG MORPHINE DELIVERED PER SHIFT SCH (21:49)
[2017-07-28] VITALS: BP 117/59; PULSE 75; RESP 18; TEMP 99.4; O2SAT 95
[2017-07-28] MEDS: metroNIDAZOLE 500 MG INJ 100 ML IV SCH ×3 (00:14→17:15)
[2017-07-28] MEDS: METOCLOPRAMIDE HCL 10 MG/2 ML VIAL IVS SCH ×5 (00:15→23:51)
[2017-07-28 04:00] VITALS: BP 134/65; PULSE 66; RESP 18; TEMP 97.1; O2SAT 98
[2017-07-28] MEDS: PCA - TOTAL MG MORPHINE DELIVERED PER SHIFT SCH ×2 (04:28→15:08)
[2017-07-28] MEDS: DEXT 5%-NACL 0.9% 1000 ML INJ 1,000 ML IV SCH ×2 (04:32→14:59)
[2017-07-28] MEDS: D5-LR + KCL 20 MEQ INJ 1,000 ML IV SCH ×3 (04:32→17:21)
[2017-07-28 07:23] LABS: AUTOMATED NEUTROPHIL # 8.4 TH/MM3 (1.8-7.7); BASOPHIL % 0.1 % (0.0-2.0); EOSINOPHIL % 0.1 % (0.0-4.0); HEMOGLOBIN 11.8 GM/DL (13.0-17.0); LYMPH % 5.6 % (9.0-44.0); LYMPHOCYTE # 0.5 TH/MM3 (1.0-4.8); MEAN CORPUSCULAR HEMOGLOBIN 34.8 PG (27.0-34.0); MEAN CORPUSCULAR HGB CONC 33.8 % (32.0-36.0); MEAN PLATELET VOLUME 7.7 FL (7.0-11.0); MONO % 5.7 % (0.0-8.0); MONOCYTE # 0.5 TH/MM3 (0-0.9); NEUT % 88.5 % (16.0-70.0); PLATELET COUNT 252 TH/MM3 (150-450); RED CELL DISTRIBUTION WIDTH 13.1 % (11.6-17.2); WHITE BLOOD COUNT 9.4 TH/MM3 (4.0-11.0)
[2017-07-28 07:36] LABS: CALCIUM 8.7 MG/DL (8.5-10.1); CREATININE 1.02 MG/DL (0.60-1.30)
[2017-07-28 08:00] VITALS: BP 104/62; PULSE 62; RESP 18; TEMP 96.5; O2SAT 96
[2017-07-28] MEDS: SODIUM CHLORIDE 0.9% FLUSH 10 ML FLUSH IV FLUSH SCH ×2 (09:00→19:42)
[2017-07-28] MEDS ORDERED: ALVIMOPAN 12 MG CAPSULE - Post-op dosing PO SCH (09:00)
[2017-07-28] MEDS: PANTOPRAZOLE SODIUM 40 MG VIAL IVP SCH (09:24)
[2017-07-28 12:00] VITALS: BP 105/64; PULSE 70; RESP 17; TEMP 97.9; O2SAT 100
[2017-07-28] MEDS: MORPHINE SULFATE 30 MG/30 ML PCA IV SCH (14:27)
[2017-07-28 16:00] VITALS: BP 95/59; PULSE 76; RESP 16; TEMP 98.2; O2SAT 97
--- NOTE | 2017-07-28 16:31 | HHI.DCPOC ---
Discharge Care Plan Diagnosis: (1) Ileostomy closure Your Health Problems Are: Incision/Drains Appetite Changes Difficulty to Swallow Irregular Bowel Function Exercise Tolerance Goals to Promote Your Health * To prevent worsening of your condition and complications * To maintain your health at the optimal level Directions to Meet Your Goals Take your medications as prescribed Follow your dietary instruction Follow activity as directed Keep your appointments as scheduled Take your immunizations and boosters as scheduled If your symptoms worsen call your PCP, if no PCP go to Urgent Care Center or Emergency Room Smoking is Dangerous to Your Health. Avoid second hand smoke Call the 24-hour hour crisis hotline for domestic abuse at Arun Bolton MD Jul 28, 2017 16:31
--- NOTE | 2017-07-28 16:34 | HHI.PR ---
Subjective Remarks No N or V. No BMs. Voiding well Objective Vital Signs Date Time Temp Pulse Resp B/P (MAP) Pulse Ox O2 Delivery O2 Flow Rate FiO2 07/28/17 12:00 97.9 70 17 105/64 (78) 100 07/28/17 08:00 96.5 62 18 104/62 (76) 96 07/28/17 04:28 18 07/28/17 04:00 97.1 66 18 134/65 (88) 98 07/28/17 00:00 99.4 75 18 117/59 (78) 95 07/27/17 21:49 18 07/27/17 21:15 97.1 73 18 130/87 (101) 95 07/27/17 20:20 65 14 105/61 (76) 99 Room Air 07/27/17 19:30 66 14 107/59 (75) 100 Nasal Cannula 2 07/27/17 18:30 66 14 112/55 (74) 100 Nasal Cannula 2 07/27/17 18:15 62 14 132/60 (84) 100 Nasal Cannula 2 07/27/17 18:00 65 14 124/76 (92) 100 Nasal Cannula 2 07/27/17 17:45 70 14 113/64 (80) 100 Nasal Cannula 2 07/27/17 17:45 16 07/27/17 17:29 98.0 87 14 139/84 (102) 100 Nasal Cannula 2 I/O 07/27/17 07/27/17 07/27/17 07/28/17 07/28/17 07/28/17 06:59 14:59 22:59 06:59 14:59 22:59 Intake Total 1350 ml 1100 ml 1000 ml Output Total 5 ml 400 ml Balance 1345 ml 700 ml 1000 ml Intake Oral 0 ml IV Total 350 ml 1100 ml 1000 ml Other 1000 ml Output Urine Total 400 ml Estimated Blood Loss 5 ml # Bowel Movements 0 Result Diagram: 07/28/1725 07/28/17524 Objective Remarks VS-S Abd: Flat,dressing dry I&Os and Labs-OK Assessment and Plan Assessment and Plan Stable POD#1 Decrease IVs, Switch to PO pain meds. OOB, Atrovent inhaler. Possible D/C in AM Arun Bolton MD Jul 28, 2017 16:34
[2017-07-28] MEDS ORDERED: ALBUTEROL SULFATE 90 MCG/ACT HFA 8 GM INHALER INH PRN (17:00)
[2017-07-28] MEDS: ACETAMINOPHEN/HYDROcodone 325 MG/5 MG TAB PO PRN ×2 (17:19→22:14)
[2017-07-28] MEDS: ALVIMOPAN 12 MG CAPSULE PO SCH (19:42)
[2017-07-28 20:00] VITALS: BP 112/62; PULSE 73; RESP 16; TEMP 96.8; O2SAT 98
[2017-07-28] MEDS: RESP: IPRATROPIUM 0.5 MG/2.5 ML NEB NEB SCH (21:47)
[2017-07-29 00:14] VITALS: BP 101/54; PULSE 76; RESP 16; TEMP 97.2; O2SAT 96
[2017-07-29] MEDS: METOCLOPRAMIDE HCL 10 MG/2 ML VIAL IVS SCH ×4 (04:47→22:36)
[2017-07-29] MEDS: ACETAMINOPHEN/HYDROcodone 325 MG/5 MG TAB PO PRN ×5 (04:47→22:36)
[2017-07-29] MEDS: D5-LR + KCL 20 MEQ INJ 1,000 ML IV SCH (04:51)
[2017-07-29] MEDS: RESP: IPRATROPIUM 0.5 MG/2.5 ML NEB NEB SCH ×4 (05:07→21:35)
--- NOTE | 2017-07-29 06:33 | HHI.PR ---
Subjective Remarks POD#2 s/p ileostomy closure sore Objective Vital Signs Date Time Temp Pulse Resp B/P (MAP) Pulse Ox O2 Delivery O2 Flow Rate FiO2 07/29/17 00:14 97.2 76 16 101/54 (70) 96 07/28/17 20:00 96.8 73 16 112/62 (79) 98 07/28/17 16:00 98.2 76 16 95/59 (71) 97 07/28/17 12:00 97.9 70 17 105/64 (78) 100 07/28/17 08:00 96.5 62 18 104/62 (76) 96 I/O 07/28/17 07/28/17 07/28/17 07/29/17 07/29/17 07/29/17 07:00 15:00 23:00 07:00 15:00 23:00 Intake Total 1100 ml 1000 ml 1675 ml Output Total 400 ml 1200 ml 800 ml Balance 700 ml 1000 ml 475 ml -800 ml Intake Oral 0 ml 1200 ml IV Total 1100 ml 1000 ml 475 ml Output Urine Total 400 ml 1200 ml 800 ml # Bowel Movements 0 0 Result Diagram: 07/28/17 0525 07/28/17 0525 Objective Remarks Abdomen soft, nondistended, tender wound clean Assessment and Plan Assessment and Plan Home soon Isabella Horne MD Jul 29, 2017 06:33
[2017-07-29] MEDS: SODIUM CHLORIDE 0.9% FLUSH 10 ML FLUSH IV FLUSH SCH ×2 (07:51→19:57)
[2017-07-29] MEDS: PANTOPRAZOLE SODIUM 40 MG VIAL IVP SCH (07:52)
[2017-07-29] MEDS: ALVIMOPAN 12 MG CAPSULE PO SCH ×2 (07:52→19:53)
[2017-07-29 08:00] VITALS: BP 113/74; PULSE 71; RESP 16; TEMP 97.8; O2SAT 100
[2017-07-29 09:23] LABS: AUTOMATED NEUTROPHIL # 5.7 TH/MM3 (1.8-7.7); BASOPHIL % 0.4 % (0.0-2.0); EOSINOPHIL # 0.2 TH/MM3 (0-0.4); EOSINOPHIL % 2.4 % (0.0-4.0); HEMOGLOBIN 10.4 GM/DL (13.0-17.0); LYMPH % 9.9 % (9.0-44.0); LYMPHOCYTE # 0.7 TH/MM3 (1.0-4.8); MEAN CELL VOLUME 103.3 FL (80.0-100.0); MEAN CORPUSCULAR HEMOGLOBIN 34.7 PG (27.0-34.0); MEAN CORPUSCULAR HGB CONC 33.6 % (32.0-36.0); MEAN PLATELET VOLUME 7.3 FL (7.0-11.0); MONO % 9.7 % (0.0-8.0); MONOCYTE # 0.7 TH/MM3 (0-0.9); NEUT % 77.6 % (16.0-70.0); PLATELET COUNT 219 TH/MM3 (150-450); RED CELL DISTRIBUTION WIDTH 12.8 % (11.6-17.2); WHITE BLOOD COUNT 7.4 TH/MM3 (4.0-11.0)
[2017-07-29 09:52] LABS: CALCIUM 9.3 MG/DL (8.5-10.1); CREATININE 0.73 MG/DL (0.60-1.30)
[2017-07-29 12:00] VITALS: BP 95/66; PULSE 74; RESP 16; TEMP 98.7; O2SAT 96
[2017-07-29 15:46] VITALS: BP 103/65; PULSE 78; RESP 17; TEMP 97.4; O2SAT 100
[2017-07-29 20:00] VITALS: BP 102/66; PULSE 86; RESP 19; TEMP 96.4; O2SAT 97
[2017-07-30 00:16] VITALS: BP 104/64; PULSE 75; RESP 19; TEMP 97.8; O2SAT 100
[2017-07-30] MEDS: RESP: IPRATROPIUM 0.5 MG/2.5 ML NEB NEB SCH ×2 (04:22→09:39)
[2017-07-30] MEDS: ACETAMINOPHEN/HYDROcodone 325 MG/5 MG TAB PO PRN ×3 (04:53→12:46)
[2017-07-30] MEDS: METOCLOPRAMIDE HCL 10 MG/2 ML VIAL IVS SCH (04:54)
[2017-07-30] MEDS: D5-LR + KCL 20 MEQ INJ 1,000 ML IV SCH (06:14)
[2017-07-30] MEDS: SODIUM CHLORIDE 0.9% FLUSH 10 ML FLUSH IV FLUSH SCH (07:59)
[2017-07-30 08:00] VITALS: BP 108/68; PULSE 80; RESP 19; TEMP 97.7; O2SAT 95
[2017-07-30] MEDS: ALVIMOPAN 12 MG CAPSULE PO SCH (08:00)
[2017-07-30] MEDS: PANTOPRAZOLE SODIUM 40 MG VIAL IVP SCH (08:00)
[2017-07-30 10:21] VITALS: RESP 17
--- NOTE | 2017-07-30 11:11 | HHI.PR ---
Subjective Remarks POD#3 s/p ileostomy closure comfortable, passing stool Objective Vital Signs Date Time Temp Pulse Resp B/P (MAP) Pulse Ox O2 Delivery O2 Flow Rate FiO2 07/30/17 10:21 17 07/30/17 08:00 97.7 80 19 108/68 (81) 95 07/30/17 00:16 97.8 75 19 104/64 (77) 100 07/29/17 20:00 96.4 86 19 102/66 (78) 97 07/29/17 15:46 97.4 78 17 103/65 (78) 100 07/29/17 12:00 98.7 74 16 95/66 (76) 96 I/O 07/29/17 07/29/17 07/29/17 07/30/17 07/30/17 07/30/17 07:00 15:00 23:00 07:00 15:00 23:00 Intake Total 720 ml 960 ml 1070 ml 120 ml Output Total 800 ml 1000 ml 900 ml Balance -800 ml -280 ml 60 ml 1070 ml 120 ml Intake Oral 720 ml 960 ml 400 ml 120 ml IV Total 670 ml Output Urine Total 800 ml 1000 ml 900 ml # Voids 2 4 # Bowel Movements 1 1 Result Diagram: 07/29/17 0700 07/29/17 0700 Objective Remarks Abdomen soft, nondistended, tender wound clean Assessment and Plan Assessment and Plan Home today Followup with Dr. Bolton 3 weeks Isabella Horne MD Jul 30, 2017 11:11
[2017-07-30] MEDS ORDERED: HYDR-3516 PO (11:24)
--- NOTE | 2017-07-30 18:32 | MP ---
cc: MD BOLTON J. TIMOTHY DATE OF SURGERY: 07/27/2017. PREOPERATIVE DIAGNOSIS: Diverting loop ileostomy. POSTOPERATIVE DIAGNOSIS: Diverting loop ileostomy. OPERATIVE PROCEDURE PERFORMED: Small bowel resection with closure of loop ileostomy. SURGEON: Arun Bolton M.D. RADIOLOGICAL HEALTH SPECIALIST: Kenneth Desai MD. Thao Chilango, MS-3. OPERATIVE FINDINGS: This patient had a diverting ileostomy done three months ago for a very low rectal cancer resection with a coloanal anastomosis. It has been twelve weeks and the anastomosis is well-healed and closure of the ileostomy with small bowel resection was recommended. At surgery, the ileostomy and small bowel was mobilized and the stoma was excised and a functional end-to-end anastomosis was done with an Ethicon FABIAN stapling instrument. DESCRIPTION OF THE PROCEDURE IN DETAIL: The patient was placed on the table in the supine position after adequate general endotracheal anesthesia. The ileostomy mucosa was closed with a running 3-0 Vicryl suture. Once this was done, the abdomen was prepped and draped in the usual manner and an elliptical transverse incision was made around the ileostomy site. The incision was carried down through the skin and subcutaneous tissue down to the fascial layer. There was no pericolostomy hernia and dissection was taken down from the fascia of the rectus muscle with electrocautery and sharp dissection. Once this was done, the peritoneal cavity was entered and the small bowel proximal and distal to the loop stoma was mobilized up out of the stoma site and the distal bowel was clamped between Sybil clamps and divided and the proximal bowel was divided with an Ethicon FABIAN 55 stapling device. The mesentery was clamped, cut and ligated and then the anastomosis was carried out along the antimesenteric borders of the small bowel using the Ethicon FABIAN 55 stapling device and then the enterotomy was closed with a TX 60 blue staple height stapling device. Once this was done, hemostasis of the staple line was obtained with interrupted 3-0 Vicryl sutures and the opening in the mesentery was approximated with 3-0 Vicryl as well. Once we were certain there was adequate hemostasis, the bowel was replaced in the abdominal cavity and then the abdominal cavity was closed in layers vertically closing the posterior rectus sheath with a #1 PDS suture and then the anterior rectus sheath was closed with another #1 PDS suture. Subcutaneous tissue was irrigated thoroughly with saline solution and aspirated dry. A relaxing incision was made lateral to the incision since he was somewhat snug, and then the subcutaneous tissue was irrigated thoroughly with saline solution and skin was closed with running 3-0 Vicryl subcuticular suture. Dressing was applied. Sponge, needle and instrument counts were reported as correct. The estimated blood loss was minimal. The patient tolerated the procedure well and left the operating room in good condition. MD BELA Ramos/RENA /6:15 PM /6:23 PM [email or web address]
== END 2017-07-30 12:53 | disposition home or self-care (01) | DRG 331 ==
LOC: HSDI 11:55 → N07A 20:25
PROVIDERS: ADMIT Colon & Rectal Surgery; ATTEND Colon & Rectal Surgery
PROC: 0DBB0ZZ Excision of Ileum, Open Approach (ICD-10-PCS; principal; 2017-07-27 16:16)
DX: Z43.2 Encounter for attention to ileostomy (principal); F17.210 Nicotine dependence, cigarettes, uncomplicated; J45.909 Unspecified asthma, uncomplicated; Z85.048 Personal history of other malignant neoplasm of rectum, rectosigmoid junction, and anus; Z92.21 Personal history of antineoplastic chemotherapy; Z92.3 Personal history of irradiation
CPT/HCPCS: 80048; 85025; 86850; 86900; 86901; 88304; 88307; 94150; 94618; 94640; 94664; C9113; J0131; J0690; J1100; J1170; J2250; J2270; J2370; J2405; J2710; J2765; J3010; J3480; J7042; J7120; J7644

== ENCOUNTER 2017-09-11 09:39 | Emergency (ER) | payer OTHER ==
[~2017-09-11] VITALS: Ht 175.3 cm; Wt 62.0 kg
[~2017-09-11 09:39] MED LIST changes: +HYDR-3516 PO
[2017-09-11 09:45] VITALS: BP 118/74; PULSE 120; RESP 17; TEMP 99.3; O2SAT 99
--- NOTE | 2017-09-11 10:06 | RADRPT ---
EXAM DATE/TIME: 09/11/2017 09:55 [facility] COMPARISON: CHEST PA & LAT, April 20, 2017, 9:29. INDICATIONS : Patient states chest pain. MEDICAL HISTORY : Carcinoma, colon. Asthma. 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 ENCOUNTER: Initial ACUITY: 1 month PAIN SCORE: 6/10 LOCATION: Bilateral chest FINDINGS: PA and lateral views of the chest demonstrate the lungs to be symmetrically aerated without evidence of mass, infiltrate or effusion. The cardiomediastinal contours are unremarkable. Osseous structure s are intact. CONCLUSION: 1. No acute cardiopulmonary findings. Stable compared to prior dated 04/20/17. Dirk Watson MD on September 11, 2017 at 10:03 Board Certified Radiologist. This report was verified electronically.
[2017-09-11 10:26] LABS: AUTOMATED NEUTROPHIL # 7.3 TH/MM3 (1.8-7.7); BASOPHIL # 0.1 TH/MM3 (0-0.2); BASOPHIL % 0.8 % (0.0-2.0); EOSINOPHIL # 0.3 TH/MM3 (0-0.4); EOSINOPHIL % 3.2 % (0.0-4.0); HEMATOCRIT 32.8 % (39.0-51.0); HEMOGLOBIN 11.4 GM/DL (13.0-17.0); LYMPH % 7.8 % (9.0-44.0); LYMPHOCYTE # 0.7 TH/MM3 (1.0-4.8); MEAN CELL VOLUME 101.6 FL (80.0-100.0); MEAN CORPUSCULAR HEMOGLOBIN 35.2 PG (27.0-34.0); MEAN CORPUSCULAR HGB CONC 34.7 % (32.0-36.0); MONO % 11.8 % (0.0-8.0); MONOCYTE # 1.1 TH/MM3 (0-0.9); NEUT % 76.4 % (16.0-70.0); PLATELET COUNT 412 TH/MM3 (150-450); RED BLOOD COUNT 3.23 MIL/MM3 (4.50-5.90); WHITE BLOOD COUNT 9.5 TH/MM3 (4.0-11.0)
[2017-09-11 10:37] LABS: BICARBONATE 25.7 MEQ/L (21.0-32.0); BLOOD UREA NITROGEN 6 MG/DL (7-18); CALCIUM 9.6 MG/DL (8.5-10.1); CHLORIDE 100 MEQ/L (98-107); CREATININE 0.78 MG/DL (0.60-1.30); GLOMERULAR FILTRATION RATE 123 ML/MIN (>89); GLUCOSE,RANDOM 82 MG/DL (74-106); SODIUM (NA) 135 MEQ/L (136-145)
[2017-09-11 10:42] LABS: TROPONIN I LESS THAN 0.02 NG/ML (0.02-0.05)
--- NOTE | 2017-09-11 11:51 | PD ---
HPI . Cough Chief Complaint: Cold / Flu Symptoms Time Seen by Provider: 11:27 Travel History International Travel<30 days: No Contact w/Intl Traveler<30days: No Traveled to known affect area: No History of Present Illness HPI This patient presents with chief complaint of a 4 day history of cough with phlegm. No fever. No shortness of breath. He has developed some right-sided chest and upper abdominal discomfort associated with the coughing. He has taken some Jolene-Aurora plus with some relief of his symptoms. He describes his chest discomfort as soreness and mild. PFSH Past Medical History Asthma: Yes Autoimmune Disease: No Cancer: Yes Cardiovascular Problems: No Diabetes: No Endocrine: No Gastrointestinal Disorders: Yes (COLON CANCER) Genitourinary: No Hepatitis: No Hiatal Hernia: No Immune Disorder: No Musculoskeletal: Yes (right elbow tendinitis) Neurologic: No Psychiatric: No Reproductive: No Respiratory: Yes Immunizations Current: Yes Thyroid Disease: No Past Surgical History Abdominal Surgery: Yes (colon tumor removal ileostomy closure) AICD: No Body Medical Devices: NONE Cardiac Surgery: No Ear Surgery: No Endocrine Surgery: No Eye Surgery: No Genitourinary Surgery: No Gynecologic Surgery: No Joint Replacement: No Oral Surgery: No (unsure if tonsils taken as a child) Pacemaker: No Thoracic Surgery: No Other Surgery: Yes (lymph node removed left side of neck) Social History Alcohol Use: Yes (weekends beer) Tobacco Use: No Substance Use: No Allergies-Medications (Allergen,Severity, Reaction): Coded Allergies: Sulfa (Sulfonamide Antibiotics) (Verified Allergy, Severe, Hives, 09/11/17) skin peeling Reported Meds & Prescriptions Reported Meds & Active Scripts Active Hydrocodone-Acetamin 5-325 mg (Hydrocodone/Acetaminophen) 5 Mg-325 Mg Tablet 1- 2 Tab PO Q4H PRN 7 Days Reported Ventolin Hfa 18 GM Inh (Albuterol Sulfate) 90 Mcg/Act Aer 1 Puff INH Q4H PRN Review of Systems Except as stated in HPI: all other systems reviewed are Neg Physical Exam Narrative GENERAL: Thin man who is awake and alert and in no acute distress. SKIN: warm/dry. Normal color and turgor. HEAD: Normocephalic. Atraumatic. EYES: Pupils equal and round. No scleral icterus. No injection or drainage. ENT: No nasal bleeding or discharge. Mucous membranes pink and moist. NECK: Trachea midline. Full range of motion without pain.. CARDIOVASCULAR: Regular rate and rhythm. RESPIRATORY: No accessory muscle use. Clear to auscultation. Breath sounds equal bilaterally. Delay MUSCULOSKELETAL: No obvious deformities. NEUROLOGICAL: Awake and alert. No obvious cranial nerve deficits. Motor grossly within normal limits. Normal speech. PSYCHIATRIC: Appropriate mood and affect; insight and judgment normal. Data Data Last Documented VS Vital Signs Date Time Temp Pulse Resp B/P (MAP) Pulse Ox O2 Delivery O2 Flow Rate FiO2 09/11/17 09:45 99.3 120 17 118/74 (89) 99 Orders Orders Electrocardiogram (09/11/17 09:48) Complete Blood Count With Diff (09/11/17 09:48) Basic Metabolic Panel (Bmp) (09/11/17 09:48) Ckmb (Isoenzyme) Profile (09/11/17 09:48) Troponin I (09/11/17 09:48) Iv Access Insert/Monitor (09/11/17 09:48) Ecg Monitoring (09/11/17 09:48) Oxygen Administration (09/11/17 09:48) Oximetry (09/11/17 09:48) Chest, Pa & Lat (09/11/17 09:48) CKMB (09/11/17 10:10) CKMB% (09/11/17 10:10) Ed Discharge Order (09/11/17 11:43) Labs Laboratory Tests Test 09/11/17 10:10 White Blood Count 9.5 TH/MM3 Red Blood Count 3.23 MIL/MM3 Hemoglobin 11.4 GM/DL Hematocrit 32.8 % Mean Corpuscular Volume 101.6 FL Mean Corpuscular Hemoglobin 35.2 PG Mean Corpuscular Hemoglobin Concent 34.7 % Red Cell Distribution Width 12.0 % Platelet Count 412 TH/MM3 Mean Platelet Volume 7.0 FL Neutrophils (%) (Auto) 76.4 % Lymphocytes (%) (Auto) 7.8 % Monocytes (%) (Auto) 11.8 % Eosinophils (%) (Auto) 3.2 % Basophils (%) (Auto) 0.8 % Neutrophils # (Auto) 7.3 TH/MM3 Lymphocytes # (Auto) 0.7 TH/MM3 Monocytes # (Auto) 1.1 TH/MM3 Eosinophils # (Auto) 0.3 TH/MM3 Basophils # (Auto) 0.1 TH/MM3 CBC Comment DIFF FINAL Differential Comment Blood Urea Nitrogen 6 MG/DL Creatinine 0.78 MG/DL Random Glucose 82 MG/DL Calcium Level 9.6 MG/DL Sodium Level 135 MEQ/L Potassium Level 3.7 MEQ/L Chloride Level 100 MEQ/L Carbon Dioxide Level 25.7 MEQ/L Anion Gap 9 MEQ/L Estimat Glomerular Filtration Rate 123 ML/MIN Total Creatine Kinase 129 U/L Creatine Kinase MB 0.6 NG/ML Troponin I LESS THAN 0.02 NG/ML MDM Medical Decision Making Medical Screen Exam Complete: Yes Emergency Medical Condition: Yes Differential Diagnosis Differential diagnosis includes but is not limited to viral respiratory illness , bronchitis, pneumonia, allergies, CHF, asthma/COPD. Narrative Course This patient presents with chief complaint of cough and chest congestion. He has some chest wall soreness associated with the coughing. Last Impressions Chest X-Ray 09/11/17 0948 Signed Impressions: Service Date/Time: Monday, September 11, 2017 09:55 - CONCLUSION: 1. No acute cardiopulmonary findings. Stable compared to prior dated 04/20/17. Dirk Watson MD The chest x-ray was independently reviewed by me. CBC & BMP Diagram 09/11/17 10:10 Calcium Level 9.6 This patient looks well. His lungs are clear. He is in no respiratory distress. He has no evidence of pneumonia. He does not have bronchitis based upon his physical exam. He will be discharged home with symptomatic treatment. Diagnosis Primary Impression: Upper respiratory infection Qualified Codes: J06.9 - Acute upper respiratory infection, unspecified Patient Instructions: General Instructions Departure Forms: Tests/Procedures Additional Instructions: I recommend the use of a Neti Pot. You may use a nasal spray such as Afrin for up to 3 days as needed for nasal congestion. You may take an gmnk-boo-nwbttow antihistamine such as Zyrtec, Desiree or Claritin as needed for runny secretions. You may take pseudoephedrine as needed for congestion. You will need to sign for this at the pharmacy. You may take plain Mucinex, 1200 mg twice a day as needed for thick secretions. You may take a cough syrup such as Delsym as needed for cough. Motrin as needed for fever and body aches. Throat lozenges/sprays as needed for sore throat. Warm salt water gargles for sore throat. Hot tea with lemon and honey also helps soothe a sore throat. Disposition: 01 DISCHARGE HOME Condition: Stable Iris Perez MD Sep 11, 2017 11:51
--- NOTE | 2017-09-11 18:37 | EKG ---
Date Performed: 09/11/2017 Time Performed: 10:03:27 PTAGE: 57 years EKG: Sinus rhythm POSSIBLE LEFT ATRIAL ENLARGEMENT POSSIBLE RIGHT VENTRICULAR CONDUCTION DELAY BORDERLINE ECG PREVIOUS TRACING : 04/20/2017 08.31 Since the prior tracing, there has been no significant abreu DOCTOR: Gill Damian Interpretating Date/Time 09/11/2017 18:36:40
== END 2017-09-11 12:10 | disposition home or self-care (01) ==
LOC: NEPD 09:39
DX: J06.9 Acute upper respiratory infection, unspecified (principal); R94.31 Abnormal electrocardiogram [ECG] [EKG]; J45.909 Unspecified asthma, uncomplicated; Z85.038 Personal history of other malignant neoplasm of large intestine
CPT/HCPCS: 71046; 80048; 82550; 82552; 84484; 85025; 93005; 99285

== ENCOUNTER 2017-10-13 12:28 | Inpatient (IN) | payer OTHER ==
[~2017-10-13] VITALS: Ht 175.3 cm; Wt 54.8 kg
[2017-10-13] VITALS (10 sets, daily range): BP systolic 100–132; BP diastolic 56–92; PULSE 77–117; RESP 16–22; TEMP 97.5–99.5; O2SAT 97–100
[2017-10-13] MEDS ORDERED: SODIUM CHLOR 0.9% 1000 ML INJ 1,000 ML IV SCH (13:09)
[2017-10-13] MEDS ORDERED: SODIUM CHLORIDE 0.9% FLUSH 10 ML FLUSH IVF PRN (13:15)
[2017-10-13 13:41] LABS: BASOPHIL # 0.1 TH/MM3 (0-0.2); BASOPHIL % 0.7 % (0.0-2.0); EOSINOPHIL % 0.3 % (0.0-4.0); LYMPH % 1.9 % (9.0-44.0); LYMPHOCYTE # 0.3 TH/MM3 (1.0-4.8); MEAN CELL VOLUME 96.2 FL (80.0-100.0); MEAN CORPUSCULAR HEMOGLOBIN 32.8 PG (27.0-34.0); MEAN CORPUSCULAR HGB CONC 34.1 % (32.0-36.0); MONO % 7.4 % (0.0-8.0); MONOCYTE # 1.1 TH/MM3 (0-0.9); NEUT % 89.7 % (16.0-70.0); PLATELET COUNT 531 TH/MM3 (150-450); RED BLOOD COUNT 2.03 MIL/MM3 (4.50-5.90); RED CELL DISTRIBUTION WIDTH 13.6 % (11.6-17.2); WHITE BLOOD COUNT 15.6 TH/MM3 (4.0-11.0)
--- NOTE | 2017-10-13 13:46 | PD ---
"HPI Chief Complaint: Abnormal Results Time Seen by Provider: 13:07 Travel History International Travel<30 days: No Contact w/Intl Traveler<30days: No Traveled to known affect area: No History of Present Illness HPI Patient is a 57-year-old male presenting to the emergency department for evaluation of abnormal labs. Patient was notified by his doctor, Dr. Weeks to come to the emergency department with a hemoglobin of 7. Patient reports feeling symptomatic, he reports shortness of breath, weakness, feeling as if he is going to pass out. He reports that the symptoms started approximately 3 weeks ago. He does have occasional nausea but has not vomited. He reports upper abdominal pain on the right, he states is 8 out of 10, sore, aching. He reports feeling as if his abdomen is distended. Patient denies any dark or tarry like stools. He further denies any fever, chills, change in bowel habits , chest pain or shortness of breath. Symptom onset was gradual, symptoms are moderate to severe nature. Patient has a history of rectal cancer metastatic disease to the liver. PFSH Past Medical History Asthma: Yes Cancer: Yes (Rectal cancer with metastatic disease to the liver) Musculoskeletal: Yes (right elbow tendinitis) Respiratory: Yes Immunizations Current: Yes Thyroid Disease: No ?: Not Past Surgical History Abdominal Surgery: Yes (colon tumor removal ileostomy closure) AICD: No Body Medical Devices: NONE Cardiac Surgery: No Ear Surgery: No Endocrine Surgery: No Eye Surgery: No Genitourinary Surgery: No Gynecologic Surgery: No Joint Replacement: No Neurologic Surgery: No Oral Surgery: No (unsure if tonsils taken as a child) Pacemaker: No Thoracic Surgery: No Other Surgery: Yes (lymph node removed left side of neck) Social History Alcohol Use: Yes (weekends beer) Tobacco Use: No Substance Use: No Allergies-Medications (Allergen,Severity, Reaction): Coded Allergies: Sulfa (Sulfonamide Antibiotics) (Verified Allergy, Severe, Hives, 10/13/17) skin peeling Reported Meds & Prescriptions Reported Meds & Active Scripts Active Hydrocodone-Acetamin 5-325 mg (Hydrocodone/Acetaminophen) 5 Mg-325 Mg Tablet 1- 2 Tab PO Q4H PRN 7 Days Reported Ventolin Hfa 18 GM Inh (Albuterol Sulfate) 90 Mcg/Act Aer 1 Puff INH Q4H PRN Review of Systems Except as stated in HPI: all other systems reviewed are Neg General / Constitutional: No: Fever Eyes: No: Blurred Vision HENT: No: Headaches Respiratory: Positive: Shortness of Breath, Pleuritic Pain Gastrointestinal: Positive: Nausea, Abdominal Pain, No: Vomiting, Diarrhea, Changes in Bowel Habits, Indigestion, Loss of Appetite Genitourinary: No: Dysuria Neurologic: Positive: Weakness, Dizziness, Syncope (Near-syncope) Physical Exam Narrative GENERAL: Thin, well-developed, alert -[place] male. Presenting in no acute distress. SKIN: Warm and dry. HEAD: Atraumatic. Normocephalic. EYES: Pupils equal and round. No scleral icterus. No injection or drainage. ENT: No nasal bleeding or discharge. Mucous membranes pink and moist. NECK: Trachea midline. No JVD. CARDIOVASCULAR: Regular rate and rhythm. RESPIRATORY: No accessory muscle use. Clear to auscultation. Breath sounds equal bilaterally. GASTROINTESTINAL: Abdomen firm and right upper quadrant, no rebound, no guarding. Mildly distended. Hepatic and splenic margins not palpable. MUSCULOSKELETAL: Extremities without clubbing, cyanosis, or edema. No obvious deformities. NEUROLOGICAL: Awake and alert. No obvious cranial nerve deficits. Motor grossly within normal limits. Five out of 5 muscle strength in the arms and legs. Normal speech. PSYCHIATRIC: Appropriate mood and affect; insight and judgment normal. Data Data Last Documented VS Vital Signs Date Time Temp Pulse Resp B/P (MAP) Pulse Ox O2 Delivery O2 Flow Rate FiO2 10/13/17 13:24 95 17 102/62 (75) 98 16 100/59 (73) 18 106/61 (76) 10/13/17 13:23 100 Room Air 10/13/17 12:39 98.6 Orders Orders Complete Blood Count With Diff (10/13/17 13:09) Comprehensive Metabolic Panel (10/13/17 13:09) Prothrombin Time / Inr (Pt) (10/13/17 13:09) Act Partial Throm Time (Ptt) (10/13/17 13:09) Type And Screen (10/13/17 13:09) Ecg Monitoring (10/13/17 13:09) Iv Access Insert/Monitor (10/13/17 13:09) Orthostatic Vital Signs (10/13/17 13:09) Oximetry (10/13/17 13:09) Sodium Chlor 0.9% 1000 Ml Inj (Ns 1000 M (10/13/17 13:09) Sodium Chloride 0.9% Flush (Ns Flush) (10/13/17 13:15) Chest, Single Ap (10/13/17 ) Red Blood Cells (Rbc) (10/13/17 13:56) Blood Product Administration (10/13/17 13:56) Admit To Inpatient (10/13/17 ) Code Status (10/13/17 15:23) Vital Signs (Adult) Q4H (10/13/17 15:23) Activity Oob With Assistance (10/13/17 15:23) Dock Builder / Telemetry .CONTINUOUS (10/13/17:23) Diet Regular Basic (10/13/17 Dinner) Sodium Chloride 0.9% Flush (Ns Flush) (10/13/17 15:30) Sodium Chloride 0.9% Flush (Ns Flush) (10/13/17 21:00) Ondansetron Inj (Zofran Inj) (10/13/17 15:30) Temazepam (Restoril) (10/13/17 15:30) Basic Metabolic Panel (Bmp) (10/14/17 06:00) Complete Blood Count With Diff (10/14/17 06:00) Electrocardiogram (10/13/17 15:23) Pt Request For Service (10/13/17 15:23) Scd Bilateral/Knee High DG.BID (10/13/17 15:23) Naloxone Inj (Narcan Inj) (10/13/17 15:30) Magnesium Hydroxide Liq (Milk Of Magnesi (10/13/17 15:30) Inpatient Certification (10/13/17 ) Albuterol-Ipratropium Neb (Duoneb Neb) (10/13/17 15:30) Oxycodone (Roxicodone) (10/13/17 15:30) Admit Order (Ed Use Only) (10/13/17 15:36) Labs Laboratory Tests Test 10/13/17 13:20 White Blood Count 15.6 TH/MM3 Red Blood Count 2.03 MIL/MM3 Hemoglobin 6.7 GM/DL Hematocrit 19.5 % Mean Corpuscular Volume 96.2 FL Mean Corpuscular Hemoglobin 32.8 PG Mean Corpuscular Hemoglobin Concent 34.1 % Red Cell Distribution Width 13.6 % Platelet Count 531 TH/MM3 Mean Platelet Volume 7.0 FL Neutrophils (%) (Auto) 89.7 % Lymphocytes (%) (Auto) 1.9 % Monocytes (%) (Auto) 7.4 % Eosinophils (%) (Auto) 0.3 % Basophils (%) (Auto) 0.7 % Neutrophils # (Auto) 14.0 TH/MM3 Lymphocytes # (Auto) 0.3 TH/MM3 Monocytes # (Auto) 1.1 TH/MM3 Eosinophils # (Auto) 0.0 TH/MM3 Basophils # (Auto) 0.1 TH/MM3 CBC Comment DIFF FINAL Differential Comment Prothrombin Time 11.5 SEC Prothromb Time International Ratio 1.1 RATIO Activated Partial Thromboplast Time 26.6 SEC Blood Urea Nitrogen 9 MG/DL Creatinine 0.83 MG/DL Random Glucose 96 MG/DL Total Protein 6.9 GM/DL Albumin 2.3 GM/DL Calcium Level 8.8 MG/DL Alkaline Phosphatase 389 U/L Aspartate Amino Transf (AST/SGOT) 149 U/L Alanine Aminotransferase (ALT/SGPT) 34 U/L Total Bilirubin 0.5 MG/DL Sodium Level 133 MEQ/L Potassium Level 5.0 MEQ/L Chloride Level 98 MEQ/L Carbon Dioxide Level 25.7 MEQ/L Anion Gap 9 MEQ/L Estimat Glomerular Filtration Rate 115 ML/MIN [facility] Medical Decision Making Medical Screen Exam Complete: Yes Emergency Medical Condition: Yes Medical Record Reviewed: Yes Interpretation(s) Last Impressions Chest X-Ray 10/13/17 0000 Signed Impressions: Service Date/Time: Friday, October 13, 2017 14:08 - CONCLUSION: 1. No acute cardiopulmonary disease. Jake Dubois MD Laboratory Tests Test 10/13/17 13:20 White Blood Count 15.6 TH/MM3 Red Blood Count 2.03 MIL/MM3 Hemoglobin 6.7 GM/DL Hematocrit 19.5 % Mean Corpuscular Volume 96.2 FL Mean Corpuscular Hemoglobin 32.8 PG Mean Corpuscular Hemoglobin Concent 34.1 % Red Cell Distribution Width 13.6 % Platelet Count 531 TH/MM3 Mean Platelet Volume 7.0 FL Neutrophils (%) (Auto) 89.7 % Lymphocytes (%) (Auto) 1.9 % Monocytes (%) (Auto) 7.4 % Eosinophils (%) (Auto) 0.3 % Basophils (%) (Auto) 0.7 % Neutrophils # (Auto) 14.0 TH/MM3 Lymphocytes # (Auto) 0.3 TH/MM3 Monocytes # (Auto) 1.1 TH/MM3 Eosinophils # (Auto) 0.0 TH/MM3 Basophils # (Auto) 0.1 TH/MM3 CBC Comment DIFF FINAL Differential Comment Prothrombin Time 11.5 SEC Prothromb Time International Ratio 1.1 RATIO Activated Partial Thromboplast Time 26.6 SEC Blood Urea Nitrogen 9 MG/DL Creatinine 0.83 MG/DL Random Glucose 96 MG/DL Total Protein 6.9 GM/DL Albumin 2.3 GM/DL Calcium Level 8.8 MG/DL Alkaline Phosphatase 389 U/L Aspartate Amino Transf (AST/SGOT) 149 U/L Alanine Aminotransferase (ALT/SGPT) 34 U/L Total Bilirubin 0.5 MG/DL Sodium Level 133 MEQ/L Potassium Level 5.0 MEQ/L Chloride Level 98 MEQ/L Carbon Dioxide Level 25.7 MEQ/L Anion Gap 9 MEQ/L Estimat Glomerular Filtration Rate 115 ML/MIN Vital Signs Date Time Temp Pulse Resp B/P (MAP) Pulse Ox O2 Delivery O2 Flow Rate FiO2 10/13/17 13:24 95 17 102/62 (75) 98 16 100/59 (73) 18 106/61 (76) 10/13/17 13:23 16 100 Room Air 10/13/17 13:03 103 22 119/59 (79) 99 Room Air 10/13/17 12:39 98.6 117 16 101/56 (71) 99 Differential Diagnosis Metabolic abnormality versus GI bleed versus metastatic disease versus coagulopathy versus other Narrative Course Patient is a 57-year-old male presenting to the emergency department for evaluation of abnormal lab results. Patient's mildly tachycardic, hypotensive and tachypneic on arrival. Labs and imaging ordered and pending. IV access established, patient placed on temperature monitoring continuous pulse oximetry. Hemoccult was performed by my attending physician is negative. Patient was given a liter of IV fluids CBC with an H&H of 6.7/19.5. WBC 15.6 with left shift 89.7 these are all new findings when compared to prior. Platelet count is 531 Chemistry with alkaline phosphatase of 389, otherwise unremarkable. Orthostatic vital signs are negative We will transfuse 2 units of packed red blood cells now. CT scan the abdomen and pelvis which was done at [facility] as an outpatient is as follows (report copied and pasted from final report): Exam Date: September 29, 2017 Referrer: DANIAL SMITH MD Exam Name: CT ABDOMEN and PELVIS W/ CONTRAST | [id number] INDICATIONS: Personal history of malignant neoplasm of large intestine. Other specified postprocedural states. Abdomen pain. CLINICAL DATA: This is the patient's Subsequent encounter. Patient reports that signs and/or symptoms have been present for 2 weeks and indicates a pain score of 10/10. LOCATION: N/A Abdomen MEDICAL/SURGICAL HISTORY: Colon resection for cancer 2017. Radiation and chemotherapy. Colostomy. Two weeks of pain and bloating. Asthma. COMPARISON: [facility], CT ABDOMEN AND PELVIS W/ CONTRAST, 09/04/2015. TECHNIQUE: Multiple contiguous axial images were obtained through the abdomen and pelvis following bolus infusion of 100 cc Ultravist 300 (Iopromide) nonionic water-soluble contrast as a single exam dose. Using automated exposure control and adjustment of the mA and/or kV according to patient size, the radiation dose was kept as low as reasonably achievable to obtain optimal diagnostic quality images. DICOM format image data is available electronically for review and comparison. FINDINGS: The lung bases are clear. Widespread metastatic disease is seen throughout the liver with more metastatic disease in normal liver. Any of this metastatic disease would be amenable for peritonitis biopsy if desired Small cystic mass remains in the tail the pancreas measuring 1.8 cm. The spleen is unremarkable The adrenals and kidneys are unremarkable There is no retroperitoneal adenopathy. In the pelvis there is no obturator or inguinal adenopathy identified. Surgical clips are seen in the lower rectum. Review of bone windows reveals degenerative changes in the lumbar spine and both hips. I do not see evidence for bony metastatic disease. CONCLUSION: 1. Widespread metastatic disease to the liver. 2. No bony metastatic disease, or ascites. Electronically signed by: Kyle Watson MD 09/29/2017 1:41 PM EDT Patient made aware of findings and plan of care. Patient is agreeable to stay. Initially did not want patient to have blood products because she was scared that it would hurt him. was reassured that he would continue with the be monitored while blood was administered. Patient was agreeable and signed consent form. Patient will be admitted under observation. Discussed with Dr. Gu who accepted admit. Orders placed. [facility] Point of Care Fecal Specimen Occult Blood: Negative Diagnosis Primary Impression: Anemia Qualified Codes: D64.9 - Anemia, unspecified Additional Impression: Metastatic disease Admitting Information Admitting Physician Requests: Observation Condition: Stable Caitlyn Palumbo [facility] Oct 13, 2017 13:46"
[2017-10-13 13:48] LABS: HEMATOCRIT 19.5 % (39.0-51.0); HEMOGLOBIN 6.7 GM/DL (13.0-17.0)
[2017-10-13 13:54] LABS: INTERNATIONAL NORMALIZED RATIO 1.1 RATIO; PROTHROMBIN TIME - PATIENT 11.5 SEC (9.8-11.6)
[2017-10-13 14:02] LABS: ALBUMIN 2.3 GM/DL (3.4-5.0); ALT (GPT) 34 U/L (12-78); AST (GOT) 149 U/L (15-37); BICARBONATE 25.7 MEQ/L (21.0-32.0); BLOOD UREA NITROGEN 9 MG/DL (7-18); CALCIUM 8.8 MG/DL (8.5-10.1); CHLORIDE 98 MEQ/L (98-107); CREATININE 0.83 MG/DL (0.60-1.30); GLOMERULAR FILTRATION RATE 115 ML/MIN (>89); GLUCOSE,RANDOM 96 MG/DL (74-106); SODIUM (NA) 133 MEQ/L (136-145)
[2017-10-13 14:03] LABS: ALKALINE PHOSPHATASE 389 U/L (45-117); TOTAL BILIRUBIN ADULT 0.5 MG/DL (0.2-1.0); TOTAL PROTEIN 6.9 GM/DL (6.4-8.2)
--- NOTE | 2017-10-13 14:33 | RADRPT ---
EXAM DATE/TIME: 10/13/2017 14:08 [place] COMPARISON: No previous studies available for comparison. INDICATIONS : Shortness of breath. Pain in right side. MEDICAL HISTORY : Asthma. SURGICAL HISTORY : None. ENCOUNTER: Initial ACUITY: 1 day PAIN SCORE: 5/10 LOCATION: Bilateral chest FINDINGS: A single view of the chest demonstrates the lungs to be symmetrically aerated without evidence of mas s, infiltrate or effusion. The cardiomediastinal contours are unremarkable. Osseous structures are intact. CONCLUSION: 1. No acute cardiopulmonary disease. Jake Dubois MD on October 13, 2017 at 14:31 Board Certified Radiologist. This report was verified electronically.
[2017-10-13] MEDS ORDERED: MAGNESIUM HYDROXIDE SUSP 30 ML CUP PO PRN (15:30)
[2017-10-13] MEDS ORDERED: SODIUM CHLORIDE 0.9% FLUSH 10 ML FLUSH IV FLUSH PRN (15:30)
[2017-10-13] MEDS ORDERED: TEMAZEPAM 15 MG CAP PO PRN (15:30)
[2017-10-13] MEDS ORDERED: ONDANSETRON HCL 4 MG/2 ML VIAL IVP PRN (15:30)
[2017-10-13] MEDS ORDERED: NALOXONE HCL 0.4 MG/ML AMP IV PUSH PRN (15:30)
--- NOTE | 2017-10-13 16:21 | HHI.HP ---
HPI Service [facility] Hospitalists Primary Care Physician Lev Sánchez MD Admission Diagnosis METASTATIC DISEASE, SYMPTOMATIC ANEMIA Chief Complaint: Abdominal pain h/o laryngeal cancer h/o rectal cancer with new finding of liver metastasis on outpt CT Anemia Travel History International Travel<30 Days: No Contact w/Intl Traveler <30 Da: No Traveled to Known Affected Are: No History of Present Illness Patient is a pleasant 57-year-old male with long-standing smoking history. 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 The patient underwent radiation therapy for his neck lesion under Dr. Jose Gamble. Patient then underwent radiation therapy and chemotherapy per Dr. Clifford Ray. apparently there were some delay issues, but patient completed radiation to his rectum in October 2016. 2-3 months later patient was evaluated underwent colonoscopy and biopsy of the residual rectal cancer which came back as adenocarcinoma. Per surgical report, the patient's somewhat delayed his surgery but underwent surgery with Dr. Bolton 04/27/17 consisting of 1. Descending colon, sigmoid colon and a rectal resection with low anterior anastomosis. 2. Mobilization of the splenic flexure. 3. Diverting loop ileostomy. At the time of the patient's April [address] Corral noted that both the liver and gallbladder were palpably normal. Patient subsequent underwent reversion of his ileostomy July 2017. Patient presented to Dr. Bolton's office approximately 2 weeks ago with complaint of acute abdominal pain. An outpatient CT scan of the abdomen and pelvis was obtained at [facility] (09/29/17) which showed widespread metastatic disease to the liver. Arrangements had been made for the patient to switch oncology groups to [facility] with Dr. Velazquez, but patient had not yet had that appointment. Patient was sent to the [facility] by his primary care physician due to anemia noted on outpatient labs. In the ER today patient's hemoglobin was noted to be 6.[address] Bolton. He will consult. Case d/w Medical Oncology, Dr. Osman Maldonado. He will consult. Patient admitted to [facility] for further evaluation and treatment Review of Systems Constitutional: DENIES: Diaphoretic episodes, Fatigue, Fever, Weight gain, Weight loss, Chills, Dizziness, Change in appetite, Night Sweats Endocrine: DENIES: Heat/cold intolerance, Polydipsia, Polyuria, Polyphagia Eyes: DENIES: Blurred vision, Diplopia, Eye inflammation, Eye pain, Vision loss , Photosensitivity, Double Vision Ears, nose, mouth, throat: DENIES: Tinnitus, Hearing loss, Vertigo, Nasal discharge, Oral lesions, Throat pain, Hoarseness, Ear Pain, Running Nose, Epistaxis, Sinus Pain, Toothache, Odynophagia Respiratory: DENIES: Apneas, Cough, Snoring, Wheezing, Hemoptysis, Sputum production, Shortness of breath Cardiovascular: DENIES: Chest pain, Palpitations, Syncope, Dyspnea on Exertion , PND, Lower Extremity Edema, Orthopnea, Claudication Gastrointestinal: COMPLAINS OF: Abdominal pain, See HPI, DENIES: Black stools, Bloody stools, BRB per rectum, Constipation, Diarrhea, GERD, Nausea, Reflux, Vomiting, Difficulty Swallowing, Anorexia Genitourinary: DENIES: Urinary frequency, Urinary incontinence, Urgency, Hematuria, Dysuria, Nocturia Musculoskeletal: DENIES: Joint pain, Muscle aches, Stiffness, Joint Swelling, Back pain, Neck pain Integumentary: DENIES: Abnormal pigmentation, Nail changes, Pruritus, Rash Hematologic/lymphatic: DENIES: Bruising, Lymphadenopathy Immunologic/allergic: DENIES: Eczema, Urticaria Neurologic: DENIES: Abnormal gait, Headache, Localized weakness, Paresthesias, Seizures, Speech Problems, Tremor, Poor Balance Psychiatric: DENIES: Anxiety, Confusion, Mood changes, Depression, Hallucinations, Agitation, Suicidal Ideation, Homicidal Ideation, Delusions, History of Bipolar, History of Schizophrenia Past Family Social History Past Medical History 1) laryngeal cancer - s/p chemotherapy - s/p radiation therapy 2) Rectal Cancer - s/p radiation therapy - s/p surgical resection 3) widespread metastatic disease to the liver, suggestive of metastatic rectal cancer given patient's history Past Surgical History 1. Descending colon, sigmoid colon and a rectal resection with low anterior anastomosis. 2. Mobilization of the splenic flexure. 3. Diverting loop ileostomy 4. Ileostomy revision Reported Medications Reported Meds & Active Scripts Active Hydrocodone-Acetamin 5-325 mg (Hydrocodone/Acetaminophen) 5 Mg-325 Mg Tablet 1- 2 Tab PO Q4H PRN 7 Days Reported Ventolin Hfa 18 GM Inh (Albuterol Sulfate) 90 Mcg/Act Aer 1 Puff INH Q4H PRN Allergies: Coded Allergies: Sulfa (Sulfonamide Antibiotics) (Verified Allergy, Severe, Hives, 10/13/17) skin peeling Family History Noncontributory Social History -Former smoker -Denies alcohol use -Denies illicit street drugs Physical Exam Vital Signs Vital Signs Date Time Temp Pulse Resp B/P (MAP) Pulse Ox O2 Delivery O2 Flow Rate FiO2 10/13/17 15:47 97.7 84 20 119/64 97 10/13/17 13:24 95 17 102/62 (75) 98 16 100/59 (73) 18 106/61 (76) 10/13/17 13:23 16 100 Room Air 10/13/17 13:03 103 22 119/59 (79) 99 Room Air 10/13/17 12:39 98.6 117 16 101/56 (71) 99 Physical Exam GENERAL: This is a well-nourished, well-developed patient, in no apparent distress. SKIN: No rashes, ecchymoses or lesions. Cool and dry. HEAD: Atraumatic. Normocephalic. No temporal or scalp tenderness. EYES: Pupils equal round and reactive. Extraocular motions intact. No scleral icterus. No injection or drainage. ENT: Nose without bleeding, purulent drainage or septal hematoma. Throat without erythema, tonsillar hypertrophy or exudate. Uvula midline. Airway patent. NECK: Trachea midline. No JVD or lymphadenopathy. Supple, nontender, no meningeal signs. CARDIOVASCULAR: Regular rate and rhythm without murmurs, gallops, or rubs. RESPIRATORY: Clear to auscultation. Breath sounds equal bilaterally. No wheezes , rales, or rhonchi. GASTROINTESTINAL: Abdomen soft, non-tender, nondistended. firm palpable liver enlarged and readily palpated extending below right rib cage. MUSCULOSKELETAL: Extremities without clubbing, cyanosis, or edema. No joint tenderness, effusion, or edema noted. No calf tenderness. Negative Homans sign bilaterally. NEUROLOGICAL: Awake and alert. Cranial nerves II through XII intact. Motor and sensory grossly within normal limits. Five out of 5 muscle strength in all muscle groups. Normal speech. Laboratory Laboratory Tests Test 10/13/17 13:20 White Blood Count 15.6 Red Blood Count 2.03 Hemoglobin 6.7 Hematocrit 19.5 Mean Corpuscular Volume 96.2 Mean Corpuscular Hemoglobin 32.8 Mean Corpuscular Hemoglobin Concent 34.1 Red Cell Distribution Width 13.6 Platelet Count 531 Mean Platelet Volume 7.0 Neutrophils (%) (Auto) 89.7 Lymphocytes (%) (Auto) 1.9 Monocytes (%) (Auto) 7.4 Eosinophils (%) (Auto) 0.3 Basophils (%) (Auto) 0.7 Neutrophils # (Auto) 14.0 Lymphocytes # (Auto) 0.3 Monocytes # (Auto) 1.1 Eosinophils # (Auto) 0.0 Basophils # (Auto) 0.1 CBC Comment DIFF FINAL Differential Comment Prothrombin Time 11.5 Prothromb Time International Ratio 1.1 Activated Partial Thromboplast Time 26.6 Blood Urea Nitrogen 9 Creatinine 0.83 Random Glucose 96 Total Protein 6.9 Albumin 2.3 Calcium Level 8.8 Alkaline Phosphatase 389 Aspartate Amino Transf (AST/SGOT) 149 Alanine Aminotransferase (ALT/SGPT) 34 Total Bilirubin 0.5 Sodium Level 133 Potassium Level 5.0 Chloride Level 98 Carbon Dioxide Level 25.7 Anion Gap 9 Estimat Glomerular Filtration Rate 115 Result Diagram: 10/13/17 1320 10/13/[address] abd/pelvis (09/29/17) obtained at [facility] -Widespread metastatic disease to the liver Caprini VTE Risk Assessment Caprini VTE Risk Assessment: Mod/High Risk (score >= 2) Caprini Risk Assessment Model Point Value = 1 Point Value = 2 Point Value = 3 Point Value = 5 Age 41-60 Minor surgery BMI > 25 kg/m2 Swollen legs Varicose veins or History of unexplained or recurrent spontaneous Oral contraceptives or hormone replacement Sepsis (< 1 month) Serious lung disease, including pneumonia (< 1 month) Abnormal pulmonary function Acute myocardial infarction Congestive heart failure (< 1 month) History of inflammatory bowel disease Medical patient at bed rest Age 61-74 Arthroscopic surgery Major open surgery (> 45 min) Laparoscopic surgery (> 45 min) Malignancy Confined to bed (> 72 hours) Immobilizing plaster cast Central venous access Age >= 75 History of VTE Family history of VTE Factor V Leiden Prothrombin [id number] Lupus anticoagulant Anticardiolipin antibodies Elevated serum homocysteine Heparin-induced thrombocytopenia Other congenital or acquired thrombophilia Stroke (< 1 month) Elective arthroplasty Hip, pelvis, or leg fracture Acute spinal cord injury (< 1 month) Prophylaxis Regimen Total Risk Factor Score Risk Level Prophylaxis Regimen 0-1 Low Early ambulation 2 Moderate Order ONE of the following: *Sequential Compression Device (SCD) *Heparin 5000 units SQ BID 3-4 Higher Order ONE of the following medications: *Heparin 5000 units SQ TID *Enoxaparin/Lovenox 40 mg SQ daily (WT < 150 kg, CrCl > 30 mL/min) *Enoxaparin/Lovenox 30 mg SQ daily (WT < 150 kg, CrCl > 10-29 mL/min) *Enoxaparin/Lovenox 30 mg SQ BID (WT < 150 kg, CrCl > 30 mL/min) AND/OR *Sequential Compression Device (SCD) 5 or more Highest Order ONE of the following medications: *Heparin 5000 units SQ TID (Preferred with Epidurals) *Enoxaparin/Lovenox 40 mg SQ daily (WT < 150 kg, CrCl > 30 mL/min) *Enoxaparin/Lovenox 30 mg SQ daily (WT < 150 kg, CrCl > 10-29 mL/min) *Enoxaparin/Lovenox 30 mg SQ BID (WT < 150 kg, CrCl > 30 mL/min) AND *Sequential Compression Device (SCD) Assessment and Plan Problem List: (1) Metastatic disease ICD Codes: C79.9 - Secondary malignant neoplasm of unspecified site Status: Acute Plan: Patient is a pleasant 57-year-old male with long-standing smoking history. 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 The patient underwent radiation therapy for his neck lesion under Dr. Jose Gamble. Patient then underwent radiation therapy and chemotherapy per Dr. Clifford Ray. apparently there were some delay issues, but patient completed radiation to his rectum in October 2016. 2-3 months later patient was evaluated underwent colonoscopy and biopsy of the residual rectal cancer which came back as adenocarcinoma. Per surgical report, the patient's somewhat delayed his surgery but underwent surgery with Dr. Bolton 04/27/17 consisting of 1. Descending colon, sigmoid colon and a rectal resection with low anterior anastomosis. 2. Mobilization of the splenic flexure. 3. Diverting loop ileostomy. At the time of the patient's April [address] Corral noted that both the liver and gallbladder were palpably normal. Patient subsequent underwent reversion of his ileostomy July 2017. Patient presented to Dr. Bolton's office approximately 2 weeks ago with complaint of acute abdominal pain. An outpatient CT scan of the abdomen and pelvis was obtained at [facility] (09/29/17) which showed widespread metastatic disease to the liver. Arrangements had been made for the patient to switch oncology groups to [facility] with Dr. Velazquez, but patient had not yet had that appointment. Patient was sent to the [facility] by his primary care physician due to anemia noted on outpatient labs. In the ER today patient's hemoglobin was noted to be 6.7 - Case discussed with Dr. Bolton (10/13/17). He will consult. - Case d/w Medical Oncology, Dr. Osman Maldonado (10/13/17). He will consult. - DVT prophylaxis - supportive care (2) Anemia ICD Codes: D64.9 - Anemia, unspecified Status: Acute Plan: - likely d/t underlying cancer - transfuse 2 units PRBCs - repeat CBC in AM (3) H/O malignant neoplasm of rectum ICD Codes: Z85.048 - Personal history of other malignant neoplasm of rectum, rectosigmoid junction, and anus Plan: - see above (4) H/O laryngeal cancer ICD Codes: Z85.21 - Personal history of malignant neoplasm of larynx Plan: - see above Physician Certification 2 Midnight Certification Type: Admission for Inpatient Services Order for Inpatient Services The services are ordered in accordance with Medicare regulations or non- Medicare payer requirements, as applicable. In the case of services not specified as inpatient-only, they are appropriately provided as inpatient services in accordance with the 2-midnight benchmark. Estimated LOS (days): 3 3 days is the estimated time the patient will need to remain in the hospital, assuming treatment plan goals are met and no additional complications. Post-Hospital Plan: Not yet determined Problem Qualifiers (1) Anemia: Qualified Codes: D64.9 - Anemia, unspecified Orville Gu DO Oct 13, 2017 16:21
[2017-10-13] MEDS: SODIUM CHLORIDE 0.9% FLUSH 10 ML FLUSH IV FLUSH SCH (21:00)
[2017-10-13] MEDS: RESP: ALBUTEROL 2.5 MG/IPRATROPIUM 0.5 MG NEB (PRN) NEB (23:47)
[2017-10-14] VITALS (8 sets, daily range): BP systolic 118–122; BP diastolic 56–72; PULSE 58–95; RESP 17–18; TEMP 97.2–98.7; O2SAT 97–100
[2017-10-14 05:30] LABS: AUTOMATED NEUTROPHIL # 11.3 TH/MM3 (1.8-7.7); BASOPHIL % 0.3 % (0.0-2.0); EOSINOPHIL # 0.1 TH/MM3 (0-0.4); EOSINOPHIL % 0.5 % (0.0-4.0); HEMATOCRIT 27.4 % (39.0-51.0); HEMOGLOBIN 9.1 GM/DL (13.0-17.0); LYMPH % 3.1 % (9.0-44.0); LYMPHOCYTE # 0.4 TH/MM3 (1.0-4.8); MEAN CELL VOLUME 91.2 FL (80.0-100.0); MEAN CORPUSCULAR HEMOGLOBIN 30.5 PG (27.0-34.0); MEAN CORPUSCULAR HGB CONC 33.4 % (32.0-36.0); MEAN PLATELET VOLUME 6.9 FL (7.0-11.0); MONO % 8.3 % (0.0-8.0); MONOCYTE # 1.1 TH/MM3 (0-0.9); NEUT % 87.8 % (16.0-70.0); PLATELET COUNT 482 TH/MM3 (150-450); RED CELL DISTRIBUTION WIDTH 16.3 % (11.6-17.2); WHITE BLOOD COUNT 12.8 TH/MM3 (4.0-11.0)
[2017-10-14 05:56] LABS: BICARBONATE 26.4 MEQ/L (21.0-32.0); CALCIUM 8.7 MG/DL (8.5-10.1); CREATININE 0.65 MG/DL (0.60-1.30)
[2017-10-14] MEDS: RESP: ALBUTEROL 2.5 MG/IPRATROPIUM 0.5 MG NEB (PRN) NEB (07:44)
[2017-10-14] MEDS: SODIUM CHLORIDE 0.9% FLUSH 10 ML FLUSH IV FLUSH SCH ×2 (08:23→21:12)
--- NOTE | 2017-10-14 12:08 | MB ---
cc: Arun Bolton MD, Edward B DO Makary, Wafik F MD DATE: 10/14/2017 CHIEF COMPLAINT: Anemia. HISTORY OF PRESENT ILLNESS: This patient is well known to me for the past 2 years. In approximately 08/2015, he was diagnosed with a laryngeal cancer as well as a rectal cancer. The patient was referred for radiation therapy for both lesions and ended up going to Dr. Jose Gamble in [place]. I spoke to Dr. Gamble at that time and try to get his radiation transferred over to the [facility] area, which would have been much more convenient for the patient, but he was unable to do so for some reason. He will also followup with Dr. Nacho Ray. At that time, they determined that the radiation would be given for the laryngeal cancer first and he was given a course of radiation and has been disease free since that time. He then was referred back for radiation therapy, chemotherapy for his rectal cancer. The treatment was somewhat delayed certainly because of the laryngeal cancer radiation, but also there was a delay on the patient's part. Nevertheless, he ended up having radiation therapy, chemotherapy for his rectal cancer and ended up having some response with this, but then eventually agreed to surgery for the residual cancer. His radiation therapy and chemotherapy was completed in 10/2016, but he eventually agreed to surgery on 04/27/2017. At that time, I did a full left colectomy with a low anterior resection and anastomosis and a diverting loop ileostomy. At that time exploration of the abdominal cavity revealed that the liver was all palpably normal without evidence of metastatic disease. Since that time, he did well postoperatively and in July of this year, on 07/27/2017, his diverting loop ileostomy was closed. The patient did quite well with that procedure and had followed up with me in the office. He did not follow up with Dr. Nacho Contreras for options regarding any further chemotherapy postoperatively for the original carcinoma. The pathology report on the removed residual rectal cancer revealed a grade 2, moderately differentiated adenocarcinoma invading through the muscular propria into the pericolonic tissue. The margins were all clear. Only 3 lymph nodes were identified due to the radiation and chemotherapy effect and the lesion was a T3 N0 lesion. About 2 weeks ago, I saw the patient in the office with increasing abdominal pain and I examined him and he had an abdominal firmness and certainly distention of the right upper quadrant. I did not know what this was. It did not appear to be a hernia and it was quite firm. I went ahead and did a CT scan on the patient as an outpatient and it revealed multiple metastatic-appearing lesions in about 50% of the liver. We then gave the patient this result and attempted to resend him back to Dr. Nacho Ray in [place] however, the patient wanted to switch to an oncologist over here. Over the last 2 weeks, we have attempted to obtain him up an appointment with the [facility] group; however, that process has been delayed by [facility]. He recently became weaker and called his doctor, Dr. Sánchez and Dr. Sánchez got a CBC on him yesterday and that CBC showed that his hemoglobin was 6.7 and his hematocrit was 19.5. For this reason, Dr. Sánchez told him to go to the emergency department where he was admitted by Dr. Jung Gu and I spoke to Dr. Gu on the phone about his admission. He was given 2 units of packed red blood cells and his hemoglobin and hematocrit this morning is 9.1 and 27.4. His liver enzymes are also elevated. His AST is 149 and his alkaline phosphatase is 389. His albumin is low at 2.3. PAST MEDICAL HISTORY, FAMILY HISTORY, SOCIAL HISTORY, AND REVIEW OF SYSTEMS: All negative except for the fact that the patient continues to smoke cigarettes. He is complaining of bringing up a large amount of mucus at this time, although his admitting chest x-ray was within normal limits. PHYSICAL EXAMINATION: GENERAL: Pleasant, well-developed, well-nourished male, in no acute distress. SKIN: Warm and dry. HEENT: Extraocular muscles intact. NECK: Supple. ABDOMEN: Firm, rigid, but he is quite thin and muscular. Right upper quadrant is definitely swollen. He is tender in the right upper quadrant, but no peritoneal signs. RECTAL: Exam was not done by me. IMPRESSION: Obvious appearing metastatic disease occupying approximately 50% of his liver. In my opinion, this is probably metastatic rectal cancer, although I suppose it could be metastatic squamous cell carcinoma from his head and neck cancer. PLAN: Oncology is consulted to see him while he is in the hospital to expedite treatment. This patient clearly is going to need systemic treatment of some sort. I am not sure whether needle biopsy of this lesion will be necessary to determine his treatment. I will leave that to Oncology. From the colorectal standpoint, he is having bowel motions, his appetite is excellent and I think that his anemia is mostly from his liver disease and chronic disease. I will continue to follow him, both as an inpatient and as an outpatient. MD BELA Ramos/ED , 11:19 AM , 12:07 PM
--- NOTE | 2017-10-14 12:56 | HHI.PR ---
Subjective Remarks No new complaints. Pt in good spirits. Objective Vitals Vital Signs Date Time Temp Pulse Resp B/P (MAP) Pulse Ox O2 Delivery O2 Flow Rate FiO2 10/14/17 12:16 98.7 81 18 122/66 (84) 97 10/14/17 09:39 84 10/14/17 08:20 97.2 84 18 118/56 (76) 97 10/14/17 05:50 98.0 62 17 118/72 (87) 99 10/14/17 04:00 84 10/14/17 00:00 85 10/14/17 00:00 97.6 58 18 120/68 (85) 98 10/13/17 23:41 99.5 83 17 132/92 100 10/13/17 23:21 97.5 85 18 124/62 100 10/13/17 20:00 78 10/13/17 18:46 97.7 78 18 115/58 (77) 99 10/13/17 17:33 10/13/17 16:07 98.1 77 20 113/56 98 10/13/17 15:47 97.7 84 20 119/64 97 10/13/17 13:24 95 17 102/62 (75) 98 16 100/59 (73) 18 106/61 (76) 10/13/17 13:23 16 100 Room Air 10/13/17 13:03 103 22 119/59 (79) 99 Room Air Result Diagram: 10/14/17 0517 10/14/[address] abd/pelvis (09/29/17) obtained at [facility] -Widespread metastatic disease to the liver Last Impressions Chest X-Ray 10/13/17 0000 Signed Impressions: Service Date/Time: Friday, October 13, 2017 14:08 - CONCLUSION: 1. No acute cardiopulmonary disease. Jake Dubois MD Objective Remarks GENERAL: This is a well-nourished, well-developed patient, in no apparent distress. CARDIOVASCULAR: Regular rate and rhythm without murmurs, gallops, or rubs. RESPIRATORY: Clear to auscultation. Breath sounds equal bilaterally. No wheezes , rales, or rhonchi. GASTROINTESTINAL: Abdomen soft, non-tender, nondistended. Normal active bowel sounds liver palpable below right rib cage MUSCULOSKELETAL: Extremities without clubbing, cyanosis, or edema. NEURO: Alert & Oriented x4 to person, place, time, situation. Moves all ext x4 A/P Problem List: (1) Metastatic disease ICD Codes: C79.9 - Secondary malignant neoplasm of unspecified site Status: Acute Plan: Patient is a pleasant 57-year-old male with long-standing smoking history. 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 The patient underwent radiation therapy for his neck lesion under Dr. Jose Gamble. Patient then underwent radiation therapy and chemotherapy per Dr. Clifford Ray. apparently there were some delay issues, but patient completed radiation to his rectum in October 2016. 2-3 months later patient was evaluated underwent colonoscopy and biopsy of the residual rectal cancer which came back as adenocarcinoma. Per surgical report, the patient's somewhat delayed his surgery but underwent surgery with Dr. Bolton 04/27/17 consisting of 1. Descending colon, sigmoid colon and a rectal resection with low anterior anastomosis. 2. Mobilization of the splenic flexure. 3. Diverting loop ileostomy. At the time of the patient's April [address] Corral noted that both the liver and gallbladder were palpably normal. Patient subsequent underwent reversion of his ileostomy July 2017. Patient presented to Dr. Bolton's office approximately 2 weeks ago with complaint of acute abdominal pain. An outpatient CT scan of the abdomen and pelvis was obtained at [facility] (09/29/17) which showed widespread metastatic disease to the liver. Arrangements had been made for the patient to switch oncology groups to [facility] with Dr. Velazquez, but patient had not yet had that appointment. Patient was sent to the [facility] ER by his primary care physician due to anemia noted on outpatient labs. In the ER today patient's hemoglobin was noted to be 6.7 - Case discussed with Dr. Bolton (10/13/17). - Case d/w Medical Oncology, Dr. Osman Maldonado (10/14/17). He will consult later today. - will obtain CT guided liver biopsy on 10/16/17 - Pt might be able to discharge to home following biopsy. - DVT prophylaxis - supportive care (2) Anemia ICD Codes: D64.9 - Anemia, unspecified Status: Acute Plan: - likely d/t underlying cancer - Hg 6.7 (4/13/18), 9/1 (10/14) - transfused 2 units PRBCs 10/13 - repeat CBC in AM (3) H/O malignant neoplasm of rectum ICD Codes: Z85.048 - Personal history of other malignant neoplasm of rectum, rectosigmoid junction, and anus Plan: - see above (4) H/O laryngeal cancer ICD Codes: Z85.21 - Personal history of malignant neoplasm of larynx Plan: - see above Problem Qualifiers (1) Anemia: Qualified Codes: D64.9 - Anemia, unspecified Orville Gu DO Oct 14, 2017 12:56
[2017-10-14] MEDS ORDERED: MORPHINE SULFATE 15 MG CONTROLLED RELEASE TAB PO ONE (15:00)
--- NOTE | 2017-10-14 15:53 | MB ---
cc: Osman Maldonado MD DATE: 10/14/2017 REASON FOR CONSULTATION: The patient with metastatic liver lesions. HISTORY OF PRESENT ILLNESS: This is a 57-year-old male who has a history of 2 synchronous malignancies. Apparently, he was diagnosed with a laryngeal cancer in 2015. He was subsequently also found to have rectal cancer as well. We do not have his treatment records, but it appears that he received radiation treatments under the care of Dr. Gamble in [place]. The laryngeal cancer was treated with radiation, as stated above. He had a delay in the care with his colorectal cancer. He received radiation and ? chemotherapy ( will obtain records). He also underwent surgery in 2016. He had a full left colectomy and lower anterior resection and anastomosis with a diverting loop ileostomy. There was no evidence of metastatic disease at that time. In 07/2017, his diverting loop ileostomy was closed. He did not follow up with medical oncologist after his surgery. With respect to his rectal cancer, this was grade II moderately differentiated adenocarcinoma which invaded through the muscularis propria into the pericolonic tissue. Margins were clear. There were only 3 lymph nodes that were identified and this was a T3 N0 lesion. Recently, he developed increasing abdominal pain and girth. He had a CT scan completed outpatient and this revealed multiple metastatic lesions in his liver. He has progressively became anemic. He saw his primary care physician, Dr. Sánhcez, his hemoglobin was found to be low at 6.7 and he was asked to go to the emergency room. He was admitted to the hospital. He was transfused 2 units of packed red blood cells. Oncology has been consulted to make further recommendations in a patient who appears to have metastatic cancer. The patient complains of abdominal distention and pain. He has not noticed any bright red blood per rectum or melena. REVIEW OF SYSTEMS: A comprehensive review of systems was completed which is negative except as described in the HPI. PAST MEDICAL HISTORY: 1. History of laryngeal cancer, received chemotherapy and radiation. 2. History of rectal cancer, had radiation and surgical resection. It is unclear whether he received any chemotherapy. 3. Descending colon, sigmoid colon and rectal resection with low anterior anastomosis, mobilization of the splenic flexure, diverting loop ileostomy and ileostomy revision. FAMILY HISTORY: Reviewed and is noncontributory to this admission. SOCIAL HISTORY: He quit smoking many years ago. He does not drink alcohol. No illicit drugs. He is . MEDICATIONS: 1. DuoNebs every 6 hours p.r.n. 2. Roxicodone 5 mg p.o. every 4 hours p.r.n. 3. Zofran 4 mg IV every 6 hours p.r.n. 4. Temazepam 15 mg p.o. at bedtime p.r.n. 5. Milk of magnesia 30 mL p.o. every 12 hours p.r.n. ALLERGIES: HE IS ALLERGIC TO SULFA DRUGS. ASSESSMENT AND PLAN: This is a 57-year-old male who has 2 synchronous malignancies, history of laryngeal cancer as well as colorectal cancer, who was admitted to the hospital with abdominal distention and progressive anemia. 1. Metastatic lesions involving the liver. This appears to be metastatic colorectal cancer. However, given that he has a history of laryngeal cancer, we need to obtain a biopsy of the liver lesions to confirm the diagnosis. We will also need tissue for molecular studies. We will ask Interventional Radiology for the biopsy. We will obtain a CT of the chest to complete his staging. He will also need a port for systemic chemotherapy. I did have a long discussion with him. I explained to him that he appears to have metastatic disease, which is not curable. We discussed the option of palliative chemotherapy versus best supportive care versus palliative care. He is interested in pursuing aggressive treatment. He is agreeable to placement of her port for systemic chemotherapy. 2. Anemia with a hemoglobin of 6.1 on presentation, MCV was 96.2. We will obtain anemia studies. Obtain stool heme-occult. We will transfuse to keep hemoglobin greater than 7.5. 3. Abdominal pain due to malignancy. He is currently receiving Roxicodone. I will add long-acting MS Contin 15 mg p.o. every 8 hours p.r.n. Thank you for allowing me to participate in the care of this patient and I will continue to follow this patient along. The case was discussed with Dr. Gu. MD TISHA Morel/ED , 03:01 PM , 03:52 PM [facility]
[2017-10-14] MEDS: RESP: ALBUTEROL 2.5 MG/IPRATROPIUM 0.5 MG NEB (SCH) NEB (19:19)
[2017-10-14] MEDS: MORPHINE SULFATE 15 MG CONTROLLED RELEASE TAB PO SCH (21:12)
[2017-10-15 01:22] VITALS: BP 119/62; PULSE 68; RESP 18; TEMP 99.5; O2SAT 97
[2017-10-15 05:16] VITALS: BP 139/69; PULSE 89; RESP 18; TEMP 100.3; O2SAT 96
[2017-10-15] MEDS: MORPHINE SULFATE 15 MG CONTROLLED RELEASE TAB PO SCH ×3 (06:00→22:36)
[2017-10-15 08:06] LABS: AUTOMATED NEUTROPHIL # 10.6 TH/MM3 (1.8-7.7); BASOPHIL % 0.2 % (0.0-2.0); EOSINOPHIL # 0.1 TH/MM3 (0-0.4); EOSINOPHIL % 0.9 % (0.0-4.0); HEMATOCRIT 26.8 % (39.0-51.0); HEMOGLOBIN 8.9 GM/DL (13.0-17.0); LYMPH % 2.7 % (9.0-44.0); LYMPHOCYTE # 0.3 TH/MM3 (1.0-4.8); MEAN CELL VOLUME 92.5 FL (80.0-100.0); MEAN CORPUSCULAR HEMOGLOBIN 30.7 PG (27.0-34.0); MEAN CORPUSCULAR HGB CONC 33.2 % (32.0-36.0); MEAN PLATELET VOLUME 7.3 FL (7.0-11.0); MONO % 7.9 % (0.0-8.0); MONOCYTE # 0.9 TH/MM3 (0-0.9); NEUT % 88.3 % (16.0-70.0); PLATELET COUNT 458 TH/MM3 (150-450); RED BLOOD COUNT 2.89 MIL/MM3 (4.50-5.90); RED CELL DISTRIBUTION WIDTH 15.8 % (11.6-17.2)
[2017-10-15 08:17] VITALS: BP 105/55; PULSE 86; RESP 18; TEMP 98.1; O2SAT 97
[2017-10-15] MEDS: RESP: ALBUTEROL 2.5 MG/IPRATROPIUM 0.5 MG NEB (SCH) NEB ×3 (08:21→19:16)
[2017-10-15 08:33] LABS: BICARBONATE 27.4 MEQ/L (21.0-32.0); CALCIUM 8.5 MG/DL (8.5-10.1); CREATININE 0.58 MG/DL (0.60-1.30); MAGNESIUM 1.6 MG/DL (1.5-2.5)
[2017-10-15] MEDS: SODIUM CHLORIDE 0.9% FLUSH 10 ML FLUSH IV FLUSH SCH ×2 (09:00→21:10)
[2017-10-15 11:16] LABS: IRON (FE) 16 MCG/DL (65-175)
--- NOTE | 2017-10-15 11:20 | PD.ONC.PN ---
Subjective Subjective Remarks Tmax 100.3 overnight Pt ambulating around his room Reports he feels much better after getting the blood transfusion Reports he just had a bowel movement; denies dark stool Reports his pain is in much better control Objective Data Date Time Temp Pulse Resp B/P (MAP) Pulse Ox O2 Delivery O2 Flow Rate FiO2 10/15/17 08:17 98.1 86 18 105/55 (72) 97 10/15/17 05:16 100.3 89 18 139/69 (92) 96 10/15/17 01:22 99.5 68 18 119/62 (81) 97 10/14/17 20:41 98.5 72 18 119/58 (78) 100 10/14/17 13:43 95 10/14/17 12:16 98.7 81 18 122/66 (84) 97 Result Diagram: 10/15/17 0710/15/17 0705 Laboratory Results Laboratory Tests Test 10/15/17 07:05 10/15/17 10:40 White Blood Count 12.0 TH/MM3 Red Blood Count 2.89 MIL/MM3 Hemoglobin 8.9 GM/DL Hematocrit 26.8 % Mean Corpuscular Volume 92.5 FL Mean Corpuscular Hemoglobin 30.7 PG Mean Corpuscular Hemoglobin Concent 33.2 % Red Cell Distribution Width 15.8 % Platelet Count 458 TH/MM3 Mean Platelet Volume 7.3 FL Neutrophils (%) (Auto) 88.3 % Lymphocytes (%) (Auto) 2.7 % Monocytes (%) (Auto) 7.9 % Eosinophils (%) (Auto) 0.9 % Basophils (%) (Auto) 0.2 % Neutrophils # (Auto) 10.6 TH/MM3 Lymphocytes # (Auto) 0.3 TH/MM3 Monocytes # (Auto) 0.9 TH/MM3 Eosinophils # (Auto) 0.1 TH/MM3 Basophils # (Auto) 0.0 TH/MM3 CBC Comment DIFF FINAL Differential Comment Blood Urea Nitrogen 7 MG/DL Creatinine 0.58 MG/DL Random Glucose 138 MG/DL Calcium Level 8.5 MG/DL Magnesium Level 1.6 MG/DL Sodium Level 134 MEQ/L Potassium Level 3.7 MEQ/L Chloride Level 98 MEQ/L Carbon Dioxide Level 27.4 MEQ/L Anion Gap 9 MEQ/L Estimat Glomerular Filtration Rate 174 ML/MIN Administered Medications Medications (Trade) Dose Ordered Sig/Makayla Route PRN Reason Start Time Stop Time Status Last Admin Dose Admin Sodium Chloride (NS Flush) 2 ml BID IV FLUSH 10/13/17 21:00 10/15/17 09:00 Albuterol/ Ipratropium (Duoneb Neb) 1 ampule Q6HR NEB PRN NEB SOB/WHEEZING 10/13/17 15:30 10/14/17 07:44 Oxycodone HCl (Roxicodone) 5 mg Q4H PRN PO pain 1-10 10/14/17 11:45 10/15/17 10:44 Albuterol/ Ipratropium (Duoneb Neb) 1 ampule Q6HR WHILE AWAKE NEB NEB 10/14/17 14:15 10/15/17 08:21 Morphine Sulfate (Oramorph Sr) 15 mg Q8HR PO 10/14/17 22:00 10/15/17 06:00 Objective Remarks GENERAL: Thin older male walking around his room in no obvious distress SKIN: Warm and dry. HEAD: Normocephalic. EYES: No injection or drainage. NECK: Supple, trachea midline. CARDIOVASCULAR: Regular rate and rhythm without murmurs. RESPIRATORY: Breath sounds equal bilaterally. No accessory muscle use. GASTROINTESTINAL: Abdomen soft. Mildly tender to palpation EXTREMITIES: No cyanosis, or edema. MUSCULOSKELETAL: Adequate muscle tone. NEUROLOGICAL: No obvious focal deficit. Awake, alert, and oriented x3. Assessment/Plan Problem List: (1) H/O laryngeal cancer ICD Codes: Z85.21 - Personal history of malignant neoplasm of larynx Plan: --Laryngeal cancer was diagnosed in 2015. This was treated with radiation under the care of Dr. Gamble in [place] (2) Anemia ICD Codes: D64.9 - Anemia, unspecified Status: Acute Plan: --Status post 2 units packed red blood cell transfusion (3) Metastatic disease ICD Codes: C79.9 - Secondary malignant neoplasm of unspecified site Status: Acute Plan: Outpatient CT scan of the abdomen pelvis shows multiple metastatic lesions to the liver (4) Cancer of rectum ICD Codes: C20 - Malignant neoplasm of rectum Plan: Hx/Workup: Patient underwent surgery in April 2017 with a left full colectomy and lower anterior resection with anastomosis with diverting loop ileostomy. There is no evidence of metastatic disease at that time. In July 2017 the diverting loop ileostomy was closed. There was no follow-up with medical oncology. Most recently he has been developing increased abdominal pain and a CT scan of the abdomen pelvis that was done outpatient showed multiple metastatic lesions in the liver. Assessment 57-year-old male with laryngeal and rectal cancer admitted with anemia and abdominal pain noted to have metastatic lesions on outpatient CT scan Plan 1. Obtain CT scan of the chest to evaluate for metastatic disease 2. Consult interventional radiology to Place [id number] and obtain biopsy of liver lesion 3. CBC in a.m. 4. Supportive care Attending Statement The exam, history, and the medical decision-making described in the above note were completed with the assistance of the mid-level provider. I reviewed and agree with the findings presented. I attest that I had a [id number] encounter with the patient on the same day, and personally performed and documented my assessment and findings in the medical record. Metastatic liver lesions IR to biopsy in am port placement pain better controlled CT chest for staging will need outpatient PET /CT Ok to d/c once above steps are completed f/u in oncology clinic in 1 week after d/c Problem Qualifiers (1) Anemia: Qualified Codes: D64.9 - Anemia, unspecified Dominga Villegas Oct 15, 2017 11:20 Osman Maldonado MD Oct 15, 2017 23:33
[2017-10-15 11:40] LABS: % SATURATION IRON PROFILE 10.2 % (20-50); FERRITIN 1919 NG/ML (26-388); TOTAL IRON BINDING CAPACITY 157 MCG/DL (250-450)
[2017-10-15 12:18] VITALS: BP 123/62; PULSE 85; RESP 18; TEMP 98; O2SAT 99
--- NOTE | 2017-10-15 13:24 | HHI.PR ---
Subjective Remarks No new complaints. Objective Vitals Vital Signs Date Time Temp Pulse Resp B/P (MAP) Pulse Ox O2 Delivery O2 Flow Rate FiO2 10/15/17 12:57 16 10/15/17 12:18 98.0 85 18 123/62 (82) 99 10/15/17 08:17 98.1 86 18 105/55 (72) 97 10/15/17 05:16 100.3 89 18 139/69 (92) 96 10/15/17 01:22 99.5 68 18 119/62 (81) 97 10/14/17 20:41 98.5 72 18 119/58 (78) 100 10/14/17 13:43 95 Result Diagram: 10/15/17 0705 10/15/[address] abd/pelvis (09/29/17) obtained at [facility] -Widespread metastatic disease to the liver Last Impressions Chest X-Ray 10/13/17 0000 Signed Impressions: Service Date/Time: Friday, October 13, 2017 14:08 - CONCLUSION: 1. No acute cardiopulmonary disease. Jake Dubois MD Objective Remarks GENERAL: This is a well-nourished, well-developed patient, in no apparent distress. CARDIOVASCULAR: Regular rate and rhythm without murmurs, gallops, or rubs. RESPIRATORY: Clear to auscultation. Breath sounds equal bilaterally. No wheezes , rales, or rhonchi. GASTROINTESTINAL: Abdomen soft, non-tender, nondistended. Normal active bowel sounds liver palpable below right rib cage MUSCULOSKELETAL: Extremities without clubbing, cyanosis, or edema. NEURO: Alert & Oriented x4 to person, place, time, situation. Moves all ext x4 A/P Problem List: (1) Metastatic disease ICD Codes: C79.9 - Secondary malignant neoplasm of unspecified site Status: Acute Plan: Patient is a pleasant 57-year-old male with long-standing smoking history. 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 The patient underwent radiation therapy for his neck lesion under Dr. Jose Gamble. Patient then underwent radiation therapy and chemotherapy per Dr. Clifford Ray. apparently there were some delay issues, but patient completed radiation to his rectum in October 2016. 2-3 months later patient was evaluated underwent colonoscopy and biopsy of the residual rectal cancer which came back as adenocarcinoma. Per surgical report, the patient's somewhat delayed his surgery but underwent surgery with Dr. Bolton 04/27/17 consisting of 1. Descending colon, sigmoid colon and a rectal resection with low anterior anastomosis. 2. Mobilization of the splenic flexure. 3. Diverting loop ileostomy. At the time of the patient's April [address] Corral noted that both the liver and gallbladder were palpably normal. Patient subsequent underwent reversion of his ileostomy July 2017. Patient presented to Dr. Bolton's office approximately 2 weeks ago with complaint of acute abdominal pain. An outpatient CT scan of the abdomen and pelvis was obtained at [facility] (09/29/17) which showed widespread metastatic disease to the liver. Arrangements had been made for the patient to switch oncology groups to [place] [facility] with Dr. Velazquez, but patient had not yet had that appointment. Patient was sent to the [place] ER by his primary care physician due to anemia noted on outpatient labs. In the ER today patient's hemoglobin was noted to be 6.7 - Case discussed with Dr. Bolton (10/13/17). - Case d/w Medical Oncology, Dr. Osman Maldonado (10/14/17). He will consult later today. - will obtain CT guided liver biopsy on 10/16/17 - place [id number] in IR 10/16/17 - obtain CT chest - anticipate discharge to home 10/16/17 after procedures - DVT prophylaxis - supportive care (2) Anemia ICD Codes: D64.9 - Anemia, unspecified Status: Acute Plan: - likely d/t underlying cancer - Hg 6.7 (10/13/17), 9/1 (10/14), 8.9 (10/15) - transfused 2 units PRBCs 10/13 - repeat CBC in AM (3) H/O malignant neoplasm of rectum ICD Codes: Z85.048 - Personal history of other malignant neoplasm of rectum, rectosigmoid junction, and anus Plan: - see above (4) H/O laryngeal cancer ICD Codes: Z85.21 - Personal history of malignant neoplasm of larynx Plan: - see above Problem Qualifiers (1) Anemia: Qualified Codes: D64.9 - Anemia, unspecified Orville Gu DO Oct 15, 2017 13:24
[2017-10-15] MEDS ORDERED: IOHEXOL 350 MG/ML 10 ML VIAL (for RAD DIAG) IVCONTRAST ONE (14:51)
[2017-10-15 15:53] VITALS: BP 124/68; PULSE 86; RESP 18; TEMP 99.8; O2SAT 97
--- NOTE | 2017-10-15 16:46 | RADRPT ---
EXAM DATE/TIME: 10/15/2017 14:43 [facility] COMPARISON: No previous studies available for comparison. INDICATIONS : Colon cancer, evaluate for metastatic disease. IV CONTRAST: 65 cc Omnipaque 350 (iohexol) IV RADIATION DOSE: 11.29 CTDIvol (mGy) MEDICAL HISTORY : Carcinoma, colon. Carcinoma, rectal. Chemo SURGICAL HISTORY : Cancer in colon removed. ENCOUNTER: Initial ACUITY: 1 day PAIN SCALE: 0/10 LOCATION: chest TECHNIQUE: Volumetric scanning of the chest was performed. Using automated exposure control and adjustment of t he mA and/or kV according to patient size, radiation dose was kept as low as reasonably achievable to obtain optimal diagnostic quality images. DICOM format image data is available electronically for review and comparison. Follow-up recommendations for detected pulmonary nodules are based at a minimum on nodule size and pa tient risk factors according to Fleischner Society Guidelines. FINDINGS: LUNGS: There is mild subpleural density seen in the lower lobes bilaterally likely related to atelectasis or consolidation. Focal pulmonary masses are not seen. PLEURA: There are mild bilateral pleural effusions being worse on the right. MEDIASTINUM: The heart and great vessels demonstrate no acute abnormality. There is no mediastinal or hilar lymph adenopathy. AXILLAE: Within normal limits. No lymphadenopathy. SKELETAL: Within normal limits for patient age. MISCELLANEOUS: Numerous masses are seen throughout the liver. The masses occupy much of the liver. CONCLUSION: 1. No evidence of metastatic disease in the chest. 2. Extensive metastatic disease throughout the liver. Arun Flores MD on October 15, 2017 at 16:41 Board Certified Radiologist. This report was verified electronically.
[2017-10-15 21:14] VITALS: BP 99/70; PULSE 83; RESP 18; TEMP 99; O2SAT 96
[2017-10-16] VITALS (14 sets, daily range): BP systolic 95–116; BP diastolic 66–77; PULSE 80–105; RESP 18–20; TEMP 98.6–102.1; O2SAT 92–100
[2017-10-16] MEDS: MORPHINE SULFATE 15 MG CONTROLLED RELEASE TAB PO SCH ×3 (05:58→21:45)
[2017-10-16 06:21] LABS: AUTOMATED NEUTROPHIL # 11.5 TH/MM3 (1.8-7.7); BASOPHIL % 0.3 % (0.0-2.0); EOSINOPHIL # 0.1 TH/MM3 (0-0.4); EOSINOPHIL % 0.6 % (0.0-4.0); HEMOGLOBIN 9.3 GM/DL (13.0-17.0); LYMPH % 1.8 % (9.0-44.0); LYMPHOCYTE # 0.2 TH/MM3 (1.0-4.8); MEAN CELL VOLUME 92.3 FL (80.0-100.0); MEAN CORPUSCULAR HEMOGLOBIN 30.5 PG (27.0-34.0); MEAN PLATELET VOLUME 6.8 FL (7.0-11.0); MONO % 8.3 % (0.0-8.0); MONOCYTE # 1.1 TH/MM3 (0-0.9); PLATELET COUNT 442 TH/MM3 (150-450); RED BLOOD COUNT 3.04 MIL/MM3 (4.50-5.90); RED CELL DISTRIBUTION WIDTH 15.5 % (11.6-17.2); WHITE BLOOD COUNT 12.9 TH/MM3 (4.0-11.0)
[2017-10-16 06:46] LABS: AST (GOT) 150 U/L (15-37); BICARBONATE 27.2 MEQ/L (21.0-32.0); BLOOD UREA NITROGEN 6 MG/DL (7-18); CALCIUM 8.8 MG/DL (8.5-10.1); CHLORIDE 96 MEQ/L (98-107); CREATININE 0.59 MG/DL (0.60-1.30); GLOMERULAR FILTRATION RATE 170 ML/MIN (>89); GLUCOSE,RANDOM 112 MG/DL (74-106); SODIUM (NA) 133 MEQ/L (136-145)
[2017-10-16 06:48] LABS: ALT (GPT) 34 U/L (12-78)
[2017-10-16 06:50] LABS: ALKALINE PHOSPHATASE 518 U/L (45-117); TOTAL BILIRUBIN ADULT 0.7 MG/DL (0.2-1.0); TOTAL PROTEIN 6.5 GM/DL (6.4-8.2)
--- NOTE | 2017-10-16 08:21 | HHI.PR ---
Subjective Remarks cough productive of clear sputum c/o pain over liver. Objective Vitals heart reg lung few rhonci abd palpable liver. bs ext no edema Vital Signs Date Time Temp Pulse Resp B/P (MAP) Pulse Ox O2 Delivery O2 Flow Rate FiO2 10/16/17 03:54 100.6 88 18 103/66 (78) 97 10/16/17 00:49 99.9 84 18 116/76 (89) 97 10/15/17 21:14 99.0 83 18 99/70 (80) 96 10/15/17 15:53 99.8 86 18 124/68 (86) 97 10/15/17 14:00 16 10/15/17 12:57 16 10/15/17 12:18 98.0 85 18 123/62 (82) 99 Result Diagram: 10/16/17 0604 10/16/[address] abd/pelvis (09/29/17) obtained at [facility] -Widespread metastatic disease to the liver Last Impressions Chest X-Ray 10/13/17 0000 Signed Impressions: Service Date/Time: Friday, October 13, 2017 14:08 - CONCLUSION: 1. No acute cardiopulmonary disease. Jake Dubois MD A/P Problem List: (1) Metastatic disease ICD Codes: C79.9 - Secondary malignant neoplasm of unspecified site Status: Acute Plan: Patient is a pleasant 57-year-old male with long-standing smoking history. 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 The patient underwent radiation therapy for his neck lesion under Dr. Jose Gamble. Patient then underwent radiation therapy and chemotherapy per Dr. Clifford Ray. apparently there were some delay issues, but patient completed radiation to his rectum in October 2016. 2-3 months later patient was evaluated underwent colonoscopy and biopsy of the residual rectal cancer which came back as adenocarcinoma. Per surgical report, the patient's somewhat delayed his surgery but underwent surgery with Dr. Bolton 04/27/17 consisting of 1. Descending colon, sigmoid colon and a rectal resection with low anterior anastomosis. 2. Mobilization of the splenic flexure. 3. Diverting loop ileostomy. At the time of the patient's April [address] Corral noted that both the liver and gallbladder were palpably normal. Patient subsequent underwent reversion of his ileostomy July 2017. Patient presented to Dr. Bolton's office approximately 2 weeks ago with complaint of acute abdominal pain. An outpatient CT scan of the abdomen and pelvis was obtained at [facility] (09/29/17) which showed widespread metastatic disease to the liver. Arrangements had been made for the patient to switch oncology groups to [place] [facility] with Dr. Velazquez, but patient had not yet had that appointment. Patient was sent to the [place] ER by his primary care physician due to anemia noted on outpatient labs. In the ER today patient's hemoglobin was noted to be 6.7 - Case discussed with Dr. Bolton (10/13/17). - Case d/w Medical Oncology, Dr. Osman Maldonado (10/14/17). - CT guided liver biopsy on 10/16/17 - place [id number] in IR 10/16/17 will decide on d/c after port and bx. f/u oncology 1 week. (2) Anemia ICD Codes: D64.9 - Anemia, unspecified Status: Acute Plan: - likely d/t underlying cancer - Hg 6.7 (10/13/17), 9/1 (10/14), 8.9 (10/15) - transfused 2 units PRBCs 10/13 (3) H/O malignant neoplasm of rectum ICD Codes: Z85.048 - Personal history of other malignant neoplasm of rectum, rectosigmoid junction, and anus Status: Chronic Plan: - see above (4) H/O laryngeal cancer ICD Codes: Z85.21 - Personal history of malignant neoplasm of larynx Status: Chronic Plan: - see above Problem Qualifiers (1) Anemia: Qualified Codes: D64.9 - Anemia, unspecified Kurt De Anda MD Oct 16, 2017 08:21
[2017-10-16] MEDS: SODIUM CHLORIDE 0.9% FLUSH 10 ML FLUSH IV FLUSH SCH ×2 (08:59→21:46)
[2017-10-16] MEDS: guaiFENesin E.R. 600 MG TAB PO SCH ×2 (08:59→21:45)
[2017-10-16] MEDS: RESP: ALBUTEROL 2.5 MG/IPRATROPIUM 0.5 MG NEB (SCH) NEB ×3 (09:00→20:28)
--- NOTE | 2017-10-16 10:08 | HHI.PR ---
Subjective Remarks Pt seen yesterday and today. CT chest negative. For biopsy and port placement today; then probable D/C. Nothing further to add. Appreciate consultants. Will see as OP in 4-6 weeks. Objective Vital Signs Date Time Temp Pulse Resp B/P (MAP) Pulse Ox O2 Delivery O2 Flow Rate FiO2 10/16/17 08:30 98.6 80 18 95/69 (78) 97 10/16/17 03:54 100.6 88 18 103/66 (78) 97 10/16/17 00:49 99.9 84 18 116/76 (89) 97 10/15/17 21:14 99.0 83 18 99/70 (80) 96 10/15/17 15:53 99.8 86 18 124/68 (86) 97 10/15/17 14:00 16 10/15/17 12:57 16 10/15/17 12:18 98.0 85 18 123/62 (82) 99 I/O 10/15/17 10/15/17 10/15/17 10/16/17 10/16/17 10/16/17 07:00 15:00 23:00 07:00 15:00 23:00 Intake Total 240 ml 240 ml Balance 240 ml 240 ml Intake Oral 240 ml 240 ml # Voids 5 3 # Bowel Movements 1 0 Result Diagram: 10/16/17 0604 10/16/17 0604 Arun Bolton MD Oct 16, 2017 10:08
[2017-10-16] MEDS ORDERED: BISACODYL EC 5 MG TABEC PO PRN (10:15)
[2017-10-16] MEDS ORDERED: DOCUSATE SODIUM 100 MG CAP PO ONE (10:35)
[2017-10-16] MEDS ORDERED: LIDOCAINE HCL 1% 20 ML VIAL ONE (11:27)
[2017-10-16] MEDS ORDERED: MIDAZOLAM HCL 2 MG/2 ML VIAL ONE ×2 (12:16→13:13)
--- NOTE | 2017-10-16 15:05 | PD.RAD ---
Post CT Procedure Prog Note Pre Procedure Diagnosis: (1) Liver metastases Post Procedure Diagnosis: (1) Liver metastases Procedure Date: Oct 16, 2017 Supervising Radiologist: Jason Cody Proceduralist/Assist: emma baca Estimated blood loss: none Anesthesia: Conscious Sedation Plan of Activity Patient to Unit: ROPU Patient Condition: Good See PACS Report for procedural detail/treatment Jason Cody MD Oct 16, 2017 15:05
--- NOTE | 2017-10-16 15:43 | RADRPT ---
EXAM DATE/TIME: 10/16/2017 13:19 [facility] COMPARISON: No previous studies available for comparison. INDICATIONS : Liver mass. SEDATION TIME: 20 minutes BIOPSY SITE: liver MEDICATION(S): 1.) 3 mg midazolam (Versed) IV 2.) 150 mcg fentanyl (Sublimaze) IV DEVICE(S): 1.) 20 gauge Temno core biopsy needle MEDICAL HISTORY : Carcinoma, colon. SURGICAL HISTORY : colon tumor removed ENCOUNTER: Initial ACUITY: 1 day PAIN SCORE: 0/10 LOCATION: Bilateral abdomen A total of three core specimen(s) were obtained and sent to the laboratory for pathologic evaluation. PROCEDURE: 1. CT guided liver biopsy. 2. Conscious sedation with continuous EKG and oximetry monitoring. 3. EKG and oximetry remained stable throughout the procedure. Prior to the procedure informed consent was obtained. Any appropriate prior imaging studies were rev iewed. Using automated exposure control and adjustment of the mA and/or kV according to patient size, radiat ion dose was kept as low as reasonably achievable to obtain optimal diagnostic quality images. DICOM format image data is available electronically for review and comparison. The site was prepped in a sterile fashion. Full sterile technique was used, including cap, mask, shelbi rile gloves and gown and a large sterile sheet. Hand hygiene and 2% chlorhexidine and/or betadine/al cohol prep was utilized per protocol for cutaneous antisepsis. The skin and subcutaneous tissues wer e infiltrated with local anesthetic solution. With CT guidance the previously identified target was localized. Biopsy was performed using the presc ribed needle as above. Adequate hemostasis was obtained with compression at the puncture site. Follow-up CT scan reveals no hemorrhage. The patient tolerated the procedure well and there were no complications. The patient was returned to the Radiology Outpatient Unit in stable condition. CONCLUSION: Uncomplicated CT guided biopsy of liver masses. Jason Cody MD on October 16, 2017 at 15:41 Board Certified Radiologist. This report was verified electronically.
[2017-10-16] MEDS: DOCUSATE SODIUM 100 MG CAP PO SCH (21:46)
[2017-10-17] MEDS ORDERED: ACETAMINOPHEN 500 MG CPLT PO SCH (00:15)
--- NOTE | 2017-10-17 00:37 | RADRPT ---
EXAM DATE/TIME: 10/17/2017 00:24 [facility] COMPARISON: CHEST SINGLE AP, October 13, 2017, 14:08. INDICATIONS : Short of breath. MEDICAL HISTORY : Asthma. SURGICAL HISTORY : None. ENCOUNTER: Subsequent ACUITY: 1 week PAIN SCORE: 0/10 LOCATION: Bilateral chest FINDINGS: There is mild bibasilar atelectasis and probable tiny effusions. No large effusion. No pneumothorax. Heart size stable, within normal limits. CONCLUSION: Mild bibasilar atelectasis. Arun Perez MD on October 17, 2017 at 0:35 Board Certified Radiologist. This report was verified electronically.
[2017-10-17 01:24] LABS: BILIRUBIN, URINE NEG (NEG); BLOOD, URINE NEG (NEG); GLUCOSE,URINE NEG (NEG); KETONE, URINE NEG (NEG); MUCUS URINE FEW /lpf (OCC); NITRITE,URINE NEG (NEG); PH, URINE 5.5 (5.0-8.5); URINE COLOR YELLOW (YELLW/STRAW); URINE LEUKOCYTE ESTERASE NEG (NEG)
[2017-10-17 04:16] VITALS: BP 96/64; PULSE 87; RESP 16; TEMP 99.3; O2SAT 96
[2017-10-17] MEDS: MORPHINE SULFATE 15 MG CONTROLLED RELEASE TAB PO SCH ×2 (05:55→13:47)
[2017-10-17] MEDS: RESP: ALBUTEROL 2.5 MG/IPRATROPIUM 0.5 MG NEB (SCH) NEB ×2 (08:00→13:31)
[2017-10-17] MEDS ORDERED: DOCU1CAP39 PO (08:19)
[2017-10-17] MEDS ORDERED: PRED10 PO (08:19)
[2017-10-17] MEDS ORDERED: LEVA500T33 PO (08:19)
[2017-10-17] MEDS ORDERED: MORP1TAB24 PO (08:19)
[2017-10-17] MEDS ORDERED: OXYC-392 PO (08:19)
[2017-10-17] MEDS ORDERED: guaiFENesin ER PO (08:19)
[2017-10-17] MEDS ORDERED: ALBU0.08 NEB (08:22)
[2017-10-17] MEDS ORDERED: IPRA0.02 NEB (08:22)
--- NOTE | 2017-10-17 08:24 | HHI.DCPOC ---
Discharge Care Plan Diagnosis: (1) Liver metastases Goals to Promote Your Health * To prevent worsening of your condition and complications * To maintain your health at the optimal level Directions to Meet Your Goals Take your medications as prescribed Follow your dietary instruction Follow activity as directed Keep your appointments as scheduled Take your immunizations and boosters as scheduled If your symptoms worsen call your PCP, if no PCP go to Urgent Care Center or Emergency Room Smoking is Dangerous to Your Health. Avoid second hand smoke Call the 24-hour hour crisis hotline for domestic abuse at Kurt De Anda MD Oct 17, 2017 08:24
--- NOTE | 2017-10-17 08:25 | HHI.FF ---
Face to Face Verification Diagnosis: (1) Liver metastases Home Health Nursing Order: Medical education Signs/symptoms of disease process Medication education-adverse effect Nursing assessment with vital signs Instructions: assistance with nebulizer and medication administration. I have seen patient Trev Wade on 10/17/17. My clinical findings support the need for the requested home health care services because: Patient has SOB I certify that my clinical findings support that this patient is homebound because: Need for psychosocial assistance Kurt De Anda MD Oct 17, 2017 08:25
[2017-10-17 08:30] VITALS: BP 116/69; PULSE 87; RESP 16; TEMP 98.5; O2SAT 97
--- NOTE | 2017-10-17 08:30 | HHI.DS ---
Discharge Summary Admission Date Oct 13, 2017 at 15:38 Discharge Date: Oct 17, 2017 Admitting Diagnosis METASTATIC DISEASE, SYMPTOMATIC ANEMIA (1) Metastatic disease Diagnosis: Principal ICD Codes: C79.9 - Secondary malignant neoplasm of unspecified site Status: Acute (2) Anemia Diagnosis: Principal ICD Codes: D64.9 - Anemia, unspecified Status: Acute (3) H/O malignant neoplasm of rectum Diagnosis: Secondary ICD Codes: Z85.048 - Personal history of other malignant neoplasm of rectum, rectosigmoid junction, and anus Status: Chronic (4) H/O laryngeal cancer Diagnosis: Secondary ICD Codes: Z85.21 - Personal history of malignant neoplasm of larynx Status: Chronic Brief History Patient is a pleasant 57-year-old male with long-standing smoking history. 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 The patient underwent radiation therapy for his neck lesion under Dr. Jose Gamble. Patient then underwent radiation therapy and chemotherapy per Dr. Clifford Ray. apparently there were some delay issues, but patient completed radiation to his rectum in October 2016. 2-3 months later patient was evaluated underwent colonoscopy and biopsy of the residual rectal cancer which came back as adenocarcinoma. Per surgical report, the patient's somewhat delayed his surgery but underwent surgery with Dr. Bolton 04/27/17 consisting of 1. Descending colon, sigmoid colon and a rectal resection with low anterior anastomosis. 2. Mobilization of the splenic flexure. 3. Diverting loop ileostomy. At the time of the patient's April [address] Corral noted that both the liver and gallbladder were palpably normal. Patient subsequent underwent reversion of his ileostomy July 2017. Patient presented to Dr. Bolton's office approximately 2 weeks ago with complaint of acute abdominal pain. An outpatient CT scan of the abdomen and pelvis was obtained at [facility] (09/29/17) which showed widespread metastatic disease to the liver. Arrangements had been made for the patient to switch oncology groups to [facility] with Dr. Velazquez, but patient had not yet had that appointment. Patient was sent to the [place] ER by his primary care physician due to anemia noted on outpatient labs. In the ER today patient's hemoglobin was noted to be 6.[address] Bolton. He will consult. Case d/w Medical Oncology, Dr. Osman Maldonado. He will consult. Patient admitted to [facility] for further evaluation and treatment CBC/BMP: 10/16/17 0604 10/16/17 0604 Significant Findings Laboratory Tests Test 10/15/17 07:05 10/15/17 10:40 10/16/17 06:04 10/17/17 00:15 White Blood Count 12.0 TH/MM3 (4.0-11.0) 12.9 TH/MM3 (4.0-11.0) Red Blood Count 2.89 MIL/MM3 (4.50-5.90) 3.04 MIL/MM3 (4.50-5.90) Hemoglobin 8.9 GM/DL (13.0-17.0) 9.3 GM/DL (13.0-17.0) Hematocrit 26.8 % (39.0-51.0) 28.0 % (39.0-51.0) Platelet Count 458 TH/MM3 (150-450) Neutrophils (%) (Auto) 88.3 % (16.0-70.0) 89.0 % (16.0-70.0) Lymphocytes (%) (Auto) 2.7 % (9.0-44.0) 1.8 % (9.0-44.0) Neutrophils # (Auto) 10.6 TH/MM3 (1.8-7.7) 11.5 TH/MM3 (1.8-7.7) Lymphocytes # (Auto) 0.3 TH/MM3 (1.0-4.8) 0.2 TH/MM3 (1.0-4.8) Creatinine 0.58 MG/DL (0.60-1.30) 0.59 MG/DL (0.60-1.30) Random Glucose 138 MG/DL (74-106) 112 MG/DL (74-106) Sodium Level 134 MEQ/L (136-145) 133 MEQ/L (136-145) Iron Level 16 MCG/DL (65-175) Total Iron Binding Capacity 157 MCG/DL (250-450) Percent Iron Saturation 10.2 % (20-50) Ferritin 1919 NG/ML (26-388) Vitamin B12 Level 1127 PG/ML (193-986) Mean Platelet Volume 6.8 FL (7.0-11.0) Monocytes (%) (Auto) 8.3 % (0.0-8.0) Monocytes # (Auto) 1.1 TH/MM3 (0-0.9) Blood Urea Nitrogen 6 MG/DL (7-18) Albumin 2.0 GM/DL (3.4-5.0) Alkaline Phosphatase 518 U/L (45-117) Aspartate Amino Transf (AST/SGOT) 150 U/L (15-37) Chloride Level 96 MEQ/L (98-107) Urine Mucus FEW /lpf (OCC) Hospital Course (1) Metastatic disease Patient is a pleasant 57-year-old male with long-standing smoking history. 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 The patient underwent radiation therapy for his neck lesion under Dr. Jose Gamble. Patient then underwent radiation therapy and chemotherapy per Dr. Clifford Ray. apparently there were some delay issues, but patient completed radiation to his rectum in October 2016. 2-3 months later patient was evaluated underwent colonoscopy and biopsy of the residual rectal cancer which came back as adenocarcinoma. Per surgical report, the patient's somewhat delayed his surgery but underwent surgery with Dr. Bolton 04/27/17 consisting of 1. Descending colon, sigmoid colon and a rectal resection with low anterior anastomosis. 2. Mobilization of the splenic flexure. 3. Diverting loop ileostomy. At the time of the patient's April [address] Corral noted that both the liver and gallbladder were palpably normal. Patient subsequent underwent reversion of his ileostomy July 2017. Patient presented to Dr. Bolton's office approximately 2 weeks ago with complaint of acute abdominal pain. An outpatient CT scan of the abdomen and pelvis was obtained at [facility] (09/29/17) which showed widespread metastatic disease to the liver. Arrangements had been made for the patient to switch oncology groups to [facility] with Dr. Velazquez, but patient had not yet had that appointment. Patient was sent to the [place] ER by his primary care physician due to anemia noted on outpatient labs. In the ER today patient's hemoglobin was noted to be 6.7 - Case discussed with Dr. Bolton (10/13/17). - Case d/w Medical Oncology, Dr. Osman Maldonado (10/14/17). - CT guided liver biopsy on 10/16/17. result pending. - Also of note the pt has had a cough with sputum production/clear for at least 6months. He is a smoker and likely has copd. Pt noted to have fevers on admission likely tumor related. doubt bacteremia. Radiology requested r/o bacteremia before proceeding with port. Discussed with dr Maldonado. Will get blood cx. I will treat with nebs/steroid taper/ levaquin for copd and f/u office next week to check liver bx and blood cx result. If neg then reschedule port. (2) Anemia - likely d/t underlying cancer - Hg 6.7 (10/13/17) on admission - transfused 2 units PRBCs 10/13 (3) H/O malignant neoplasm of rectum ICD Codes: Z85.048 - Personal history of other malignant neoplasm of rectum, rectosigmoid junction, and anus Status: Chronic Plan: - see above (4) H/O laryngeal cancer ICD Codes: Z85.21 - Personal history of malignant neoplasm of larynx Status: Chronic Plan: - see above Pt Condition on Discharge: Stable Discharge Disposition: Disch w/ Home Health Serv Discharge Instructions DIET: Follow Instructions for: As Tolerated, No Restrictions Activities you can perform: Regular-No Restrictions Follow up Referrals: Colorectal Surgery - 4 Weeks with Arun Bolton MD Oncology - [address] Maldonado PCP Follow-up - [address] Sánchez New Medications: Albuterol Neb (Albuterol Neb) 2.5 Mg/3 Ml Neb 2.5 MG NEB QID NEB for Breathing Treatment for 30 Days, #60 NEBULE 0 Refills Ipratropium Neb (Ipratropium Neb) 0.5 Mg/2.5 Ml Amp 0.5 MG NEB QID for Breathing Treatment for 30 Days, NEBULE 0 Refills Levofloxacin (Levaquin) 500 Mg Tablet 500 MG PO DAILY for Infection for 7 Days, #7 TAB 0 Refills Prednisone (Prednisone) 10 Mg Tab 10 MG PO DIRECTED for Broncospasm for 10 Days, TAB 0 Refills 20mg po bid x 3 days, 10mg po bid x 3 days 10mg po daily x 4 days. Docusate Sodium (Dok) 100 Mg Cap 100 MG PO BID for Constipation for 30 Days, #60 CAP Morphine ER (Morphine ER) 15 Mg Tab 15 MG PO Q8HR for Pain Management, #90 TAB Oxycodone (Oxycodone) 5 Mg Tab 5 MG PO Q4H PRN for pain, #60 TAB [guaiFENesin ER] () 600 MG TABCR 600 MG PO BID for 10 Days Continued Medications: Albuterol 18 GM Inh (Ventolin Hfa 18 GM Inh) 90 Mcg/Act Aer 1 PUFF INH Q4H PRN for SHORTNESS OF BREATH, #1 INHALER 0 Refills Discontinued Medications: Hydrocodone/Acetaminophen (Hydrocodone-Acetamin 5-325 mg) 5 Mg-325 Mg Tablet 1-2 TAB PO Q4H PRN for pain for 7 Days, #25 TAB Kurt De Anda MD Oct 17, 2017 08:30
[2017-10-17] MEDS ORDERED: NEBULIZER/ADULT1 KIT (08:33)
[2017-10-17 08:36] VITALS: O2SAT 93
[2017-10-17] MEDS: DOCUSATE SODIUM 100 MG CAP PO SCH (08:57)
[2017-10-17] MEDS: SODIUM CHLORIDE 0.9% FLUSH 10 ML FLUSH IV FLUSH SCH (08:57)
[2017-10-17] MEDS: guaiFENesin E.R. 600 MG TAB PO SCH (08:58)
[2017-10-17] MEDS ORDERED: methylPREDNISolone SOD SUCC 125 MG/2 ML VIAL IV PUSH ONE (09:00)
[2017-10-17] MEDS ORDERED: LEVOFLOXACIN 500 MG TAB PO ONE (09:00)
[2017-10-17 12:05] VITALS: BP 104/68; PULSE 75; RESP 18; TEMP 98.2; O2SAT 96
== END 2017-10-17 15:20 | disposition home health service (06) | DRG 437 ==
LOC: NEPC 12:28 → OBSVTOIN 15:38 → NEDA 15:38 → N05A 17:35 → HCIN 10-15 19:10
PROVIDERS: ADMIT Hospitalist; ATTEND Hospitalist
PROC: 30233N1 Transfusion of Nonautologous Red Blood Cells into Peripheral Vein, Percutaneous Approach (ICD-10-PCS; principal; 2017-10-13)
PROC: 0FB03ZX Excision of Liver, Percutaneous Approach, Diagnostic (ICD-10-PCS; 2017-10-16)
DX: C78.7 Secondary malignant neoplasm of liver and intrahepatic bile duct (principal); D63.8 Anemia in other chronic diseases classified elsewhere; G89.3 Neoplasm related pain (acute) (chronic); Z85.048 Personal history of other malignant neoplasm of rectum, rectosigmoid junction, and anus; Z85.21 Personal history of malignant neoplasm of larynx; Z92.3 Personal history of irradiation; Z92.21 Personal history of antineoplastic chemotherapy; Z87.891 Personal history of nicotine dependence
CPT/HCPCS: 36430; 47000; 71045; 71260; 77012; 80048; 80053; 81001; 82607; 82728; 82747; 83540; 83550; 83735; 85025; 85610; 85730; 86850; 86900; 86901; 86920; 87040; 88307; 88341; 88342; 94150; 94640; 94664; 99152; 99153; J2250; J2930; J3010; J7030; P9016; Q9967

== ENCOUNTER 2017-11-01 09:39 | Inpatient (IN) | payer OTHER ==
[2017-11-01] VITALS (9 sets, daily range): BP systolic 108–136; BP diastolic 79–90; PULSE 107–116; RESP 20–26; TEMP 97.4–97.8; O2SAT 93–100
[~2017-11-01] VITALS: Ht 175.3 cm; Wt 18.0 kg
[~2017-11-01 09:39] MED LIST changes: +ALBU0.08 NEB; +DOCU1CAP39 PO; -HYDR-3516 PO; +IPRA0.02 NEB; +LEVA500T33 PO; +MORP1TAB24 PO; +NEBULIZER/ADULT1 KIT; +OXYC-392 PO; +PRED10 PO; +guaiFENesin ER PO
[2017-11-01 10:37] LABS: AUTOMATED NEUTROPHIL # 17.7 TH/MM3 (1.8-7.7); BASOPHIL # 0.1 TH/MM3 (0-0.2); BASOPHIL % 0.4 % (0.0-2.0); HEMATOCRIT 31.9 % (39.0-51.0); HEMOGLOBIN 10.6 GM/DL (13.0-17.0); LYMPH % 1.4 % (9.0-44.0); LYMPHOCYTE # 0.3 TH/MM3 (1.0-4.8); MEAN CELL VOLUME 92.2 FL (80.0-100.0); MEAN CORPUSCULAR HEMOGLOBIN 30.7 PG (27.0-34.0); MEAN CORPUSCULAR HGB CONC 33.2 % (32.0-36.0); MEAN PLATELET VOLUME 9.6 FL (7.0-11.0); MONO % 3.9 % (0.0-8.0); MONOCYTE # 0.7 TH/MM3 (0-0.9); NEUT % 94.3 % (16.0-70.0); PLATELET COUNT 266 TH/MM3 (150-450); RED BLOOD COUNT 3.45 MIL/MM3 (4.50-5.90); RED CELL DISTRIBUTION WIDTH 16.3 % (11.6-17.2); WHITE BLOOD COUNT 18.8 TH/MM3 (4.0-11.0)
[2017-11-01 10:57] LABS: INTERNATIONAL NORMALIZED RATIO 1.8 RATIO; PROTHROMBIN TIME - PATIENT 17.9 SEC (9.8-11.6)
--- NOTE | 2017-11-01 11:00 | RADRPT ---
EXAM DATE/TIME: 11/01/2017 10:33 [facility] COMPARISON: CT THORAX W CONTRAST, October 15, 2017, 14:43. CT NEEDLE BIOPSY LIVER, October 16, 2017, 13:19. CHEST S SREE AP, October 17, 2017, 0:24. INDICATIONS : Lower chest pain, abdomen pain MEDICAL HISTORY : Carcinoma, colon. carcinoma of the throat, currently has liver cancer SURGICAL HISTORY : chemo therapy for throat and colon cancers, colon tumor removed ENCOUNTER: Initial ACUITY: 2 days PAIN SCORE: 10/10 LOCATION: Bilateral cranial FINDINGS: A single view of the chest demonstrates the lungs to be symmetrically aerated without evidence of mas s, infiltrate. There is a small right-sided pleural effusion with some focal atelectasis in the right lung base.. There is mild elevation right hemidiaphragm. The cardiomediastinal contours are unremar kable. Osseous structures are intact. CONCLUSION: 1. Small right pleural effusion with focal atelectasis in the right lung base.. 2. The left lung is grossly clear. Adriel Osuna MD on November 01, 2017 at 10:56 Board Certified Radiologist. This report was verified electronically.
[2017-11-01 11:08] LABS: ALBUMIN 1.9 GM/DL (3.4-5.0); BICARBONATE 21.6 MEQ/L (21.0-32.0); BLOOD UREA NITROGEN 61 MG/DL (7-18); CALCIUM 8.9 MG/DL (8.5-10.1); CHLORIDE 90 MEQ/L (98-107); CREATININE 1.45 MG/DL (0.60-1.30); GLOMERULAR FILTRATION RATE 60 ML/MIN (>89); GLUCOSE,RANDOM 57 MG/DL (74-106); SODIUM (NA) 129 MEQ/L (136-145)
[2017-11-01 11:17] LABS: ALKALINE PHOSPHATASE 1349 U/L (45-117); TOTAL PROTEIN 6.3 GM/DL (6.4-8.2)
[2017-11-01 11:18] LABS: ALT (GPT) 303 U/L (12-78); AST (GOT) 1528 U/L (15-37); TOTAL BILIRUBIN ADULT 4.6 MG/DL (0.2-1.0)
[2017-11-01 11:27] LABS: D-DIMER 21.8 MG/L FEU (0.00-0.50)
[2017-11-01] MEDS ORDERED: INSULIN HUMAN REGULAR 1,000 UNITS/10 ML VIAL IV PUSH ONE (11:30)
[2017-11-01] MEDS ORDERED: HYDROmorphone HCL PF 2 MG/ML VIAL IV PUSH ONE (11:30)
[2017-11-01] MEDS ORDERED: SODIUM POLYSTYRENE SULFONATE SUSP 15 GM/60 ML CUP PO ONE (11:30)
[2017-11-01] MEDS ORDERED: CALCIUM CHLORIDE 10% SOLN 1 GRAM/10 ML SYR IV PUSH ONE (11:30)
[2017-11-01] MEDS ORDERED: DEXTROSE 50% IN WATER 50 ML SYRINGE IV PUSH ONE (11:30)
[2017-11-01] MEDS ORDERED: SODIUM BICARBONATE 8.4% INJ 50 MEQ/50 ML SYR IV PUSH ONE (11:30)
--- NOTE | 2017-11-01 11:44 | PD ---
HPI . Swollen abdomen Chief Complaint: Edema Time Seen by Provider: 09:51 Travel History International Travel<30 days: No Contact w/Intl Traveler<30days: No Traveled to known affect area: No History of Present Illness HPI This has been an ongoing and worsening problem for this patient over the course of the last few weeks. He is not eating well. He is losing a lot of weight. This patient has a remote history of rectal cancer and laryngeal cancer. The rectal cancer was treated with surgery followed by radiation therapy. Laryngeal cancer was treated by radiation therapy. He has recently been found to have liver metastases. The liver metastases are not felt to be from either the laryngeal cancer or the colon cancer. They are felt to be from a different primary. Nonetheless, this is a recent development. He was seen by oncology on October 28. Palliative care was recommended. The patient was given prescriptions for morphine and oxycodone. He has not been taking the morphine because it is morphine sulfate and he is allergic to sulfa drugs. The oxycodone is not helping. His symptoms have continued to get progressively worse. He was so weak that he fell this morning. This prompted a call to 911 and a trip to the emergency department. PFSH Past Medical History Asthma: Yes Autoimmune Disease: No Cancer: Yes (Rectal cancer with metastatic disease to the liver) Cardiovascular Problems: No Diabetes: No Endocrine: No Gastrointestinal Disorders: Yes (COLON CANCER) Genitourinary: No Hiatal Hernia: No Immune Disorder: No Medical other: Yes (tendonitis R elbow) Musculoskeletal: Yes (right elbow tendinitis) Neurologic: No Psychiatric: No Reproductive: No Respiratory: Yes Immunizations Current: Yes Thyroid Disease: No Past Surgical History Abdominal Surgery: Yes (colon tumor removal ileostomy closure) AICD: No Body Medical Devices: NONE Cardiac Surgery: No Ear Surgery: No Endocrine Surgery: No Eye Surgery: No Genitourinary Surgery: No Gynecologic Surgery: No Joint Replacement: No Neurologic Surgery: No Oral Surgery: No (unsure if tonsils taken as a child) Pacemaker: No Thoracic Surgery: No Other Surgery: Yes (lymph node removed left side of neck) Social History Alcohol Use: No Tobacco Use: No Substance Use: No Allergies-Medications (Allergen,Severity, Reaction): Coded Allergies: Sulfa (Sulfonamide Antibiotics) (Verified Allergy, Severe, Hives, 11/01/17) skin peeling Reported Meds & Prescriptions Reported Meds & Active Scripts Active Nebulizer/Adult Mask (N/A) 1 Kit Kit Kit .XX DIRECTED Ipratropium Neb (Ipratropium Orr) 0.5 Mg/2.5 Ml Amp 0.5 Mg NEB QID 30 Days Albuterol Neb (Albuterol Sulfate) 2.5 Mg/3 Ml Neb 2.5 Mg NEB QID NEB 30 Days Dok (Docusate Sodium) 100 Mg Cap 100 Mg PO BID 30 Days Morphine ER (Morphine Sulfate) 15 Mg Tab 15 Mg PO Q8HR Reported Ventolin Hfa 18 GM Inh (Albuterol Sulfate) 90 Mcg/Act Aer 1 Puff INH Q4H PRN Review of Systems Except as stated in HPI: all other systems reviewed are Neg General / Constitutional: Positive: Weight Loss, No: Fever, Chills Respiratory: Positive: Shortness of Breath Gastrointestinal: Positive: Abdominal Pain, Loss of Appetite, Other (Abdominal distention) Neurologic: Positive: Weakness Physical Exam Narrative GENERAL: This is a very cachectic, chronically ill-appearing man. SKIN: warm/dry. HEAD: Normocephalic. Atraumatic. EYES: Pupils equal and round. + scleral icterus. No injection or drainage. ENT: No nasal bleeding or discharge. Mucous membranes pink and moist. NECK: Trachea midline. Full range of motion without pain.. CARDIOVASCULAR: Tachycardic at about 115. Regular rhythm. RESPIRATORY: No accessory muscle use. Clear to auscultation. Breath sounds equal bilaterally. GASTROINTESTINAL: His abdomen is distended and hard. MUSCULOSKELETAL: No obvious deformities. 3+ pretibial pitting edema. NEUROLOGICAL: Awake and alert. No obvious cranial nerve deficits. Motor grossly within normal limits. Normal speech. PSYCHIATRIC: Appropriate mood and affect; insight and judgment normal. Data Data Last Documented VS Vital Signs Date Time Temp Pulse Resp B/P (MAP) Pulse Ox O2 Delivery O2 Flow Rate FiO2 11/01/17 09:47 97.5 114 26 136/79 (98) 100 Orders Orders Complete Blood Count With Diff (11/01/17 10:04) Comprehensive Metabolic Panel (11/01/17 10:04) Urinalysis - C+S If Indicated (11/01/17 10:04) Iv Access Insert/Monitor (11/01/17 10:04) Oxygen Administration (11/01/17 10:04) Oximetry (11/01/17 10:04) Lipase (11/01/17 10:04) Prothrombin Time / Inr (Pt) (11/01/17 10:04) Act Partial Throm Time (Ptt) (11/01/17 10:04) D-Dimer (11/01/17 10:04) Thrombin Time Profile (11/01/17 10:04) Chest, Single Ap (11/01/17 ) B-Type Natriuretic Peptide (11/01/17 10:14) Hydromorphone Pf Inj (Dilaudid Pf Inj) (11/01/17 11:30) Insulin Human Regular Inj (Novolin R Inj (11/01/17 11:30) Dextrose 50% In Tessy (Syr) Inj (D50w (Syr (11/01/17 11:30) Calcium Chloride Inj (Calcium Chloride I (11/01/17 11:30) Sodium Bicarbonate 8.4% Inj (Sodium Bica (11/01/17 11:30) Sodium Polysty Sulfate Liq (Kayexalate L (11/01/17 11:30) Ct Pulmonary Angiogram (11/01/17 11:34) Admit Order (Ed Use Only) (11/01/17 11:48) Consult Palliative Care (11/01/17 ) Consult Nephrology (11/01/17 ) Labs Laboratory Tests Test 11/01/17 10:15 White Blood Count 18.8 TH/MM3 Red Blood Count 3.45 MIL/MM3 Hemoglobin 10.6 GM/DL Hematocrit 31.9 % Mean Corpuscular Volume 92.2 FL Mean Corpuscular Hemoglobin 30.7 PG Mean Corpuscular Hemoglobin Concent 33.2 % Red Cell Distribution Width 16.3 % Platelet Count 266 TH/MM3 Mean Platelet Volume 9.6 FL Neutrophils (%) (Auto) 94.3 % Lymphocytes (%) (Auto) 1.4 % Monocytes (%) (Auto) 3.9 % Eosinophils (%) (Auto) 0.0 % Basophils (%) (Auto) 0.4 % Neutrophils # (Auto) 17.7 TH/MM3 Lymphocytes # (Auto) 0.3 TH/MM3 Monocytes # (Auto) 0.7 TH/MM3 Eosinophils # (Auto) 0.0 TH/MM3 Basophils # (Auto) 0.1 TH/MM3 CBC Comment DIFF FINAL Differential Comment Prothrombin Time 17.9 SEC Prothromb Time International Ratio 1.8 RATIO Activated Partial Thromboplast Time 25.9 SEC D-Dimer Quantitative (PE/DVT) 21.80 MG/L FEU Blood Urea Nitrogen 61 MG/DL Creatinine 1.45 MG/DL Random Glucose 57 MG/DL Total Protein 6.3 GM/DL Albumin 1.9 GM/DL Calcium Level 8.9 MG/DL Alkaline Phosphatase 1349 U/L Aspartate Amino Transf (AST/SGOT) 1528 U/L Alanine Aminotransferase (ALT/SGPT) 303 U/L Total Bilirubin 4.6 MG/DL Sodium Level 129 MEQ/L Potassium Level 7.3 MEQ/L Chloride Level 90 MEQ/L Carbon Dioxide Level 21.6 MEQ/L Anion Gap 17 MEQ/L Estimat Glomerular Filtration Rate 60 ML/MIN Lipase 31 U/L MDM Medical Decision Making Medical Screen Exam Complete: Yes Emergency Medical Condition: Yes Medical Record Reviewed: Yes (Please see his HPI for pertinent review of records) Differential Diagnosis Differential diagnosis of abdominal pain includes but is not limited to gastritis, pancreatitis, hepatitis, gastroenteritis, constipation, urinary retention, peptic ulcer disease, diverticulitis or appendicitis Narrative Course This is an unfortunate 57-year-old man who has liver metastases. He comes in complaining with pain, increasing abdominal distention, decreased ability to eat , profound weakness which is causing falls at home and increasing peripheral edema. CBC & BMP Diagram 11/01/17 10:15 Total Protein 6.3 L, Albumin 1.9 L, Calcium Level 8.9, Alkaline Phosphatase 1349 H, Aspartate Amino Transf (AST/SGOT) 1528 H, Alanine Aminotransferase (ALT/ SGPT) 303 H, Total Bilirubin 4.6 H Insulin/D50, calcium, bicarb and Kayexalate have been ordered for the hyperkalemia. His liver function studies are markedly elevated compared to just a week or so ago. His pain is being treated with Dilaudid. D-dimer was done and was 21.8. CT for PE has subsequently been ordered. The family reports that they understand the severity of the situation. They state that they were hoping that he could be admitted to the hospital so that appropriate care could be set up for him at home. I have placed a consult for palliative care and nephrology. Critical Care Narrative Aggregate critical care time was 45 minutes. Time to perform other separately billable procedures was not included in the critical care time. My time did not include minutes spent treating any other patients simultaneously or on activities that did not directly contribute to the patient's treatment. The services I provided to this patient were to treat and/or prevent clinically significant deterioration due to hyperkalemia I provided critical care services requiring my management, as noted below: Chart data review, documentation time, medication orders and management, vital sign assessments/reviewing monitor data, ordering and reviewing lab tests, ordering and interpreting/reviewing x-rays and diagnostic studies, care of the patient and discussion of the patient with the admitting physicians Physician Communication Physician Communication Dr. De Anda Diagnosis Primary Impression: Hyperkalemia Additional Impressions: Transaminitis Liver metastases Elevated d-dimer Admitting Information Admitting Physician Requests: Admit Condition: Stable Iris Perez MD November 01, 2017 11:44
[2017-11-01] MEDS ORDERED: IOHEXOL 350 MG/ML 10 ML VIAL (for RAD DIAG) IVCONTRAST ONE (13:41)
--- NOTE | 2017-11-01 13:54 | RADRPT ---
EXAM DATE/TIME: 11/01/2017 13:37 [facility] COMPARISON: No previous studies available for comparison. INDICATIONS : Near syncopal episode, bilateral leg swelling adn abdominal swelling for 3 days. IV CONTRAST: 46 cc Omnipaque 350 (iohexol) IV RADIATION DOSE: 7.57 CTDIvol (mGy) MEDICAL HISTORY : Carcinoma, rectal. Asthma, metastatic disease to liver SURGICAL HISTORY : None. ENCOUNTER: Initial ACUITY: 3 days PAIN SCALE: 10/10 LOCATION: chest TECHNIQUE: Volumetric scanning of the chest was performed using a pulmonary embolism protocol MIP images were re constructed. Using automated exposure control and adjustment of the mA and/or kV according to patien t size, radiation dose was kept as low as reasonably achievable to obtain optimal diagnostic quality images. DICOM format image data is available electronically for review and comparison. Follow-up recommendations for detected pulmonary nodules are based at a minimum on nodule size and pa tient risk factors according to Fleischner Society Guidelines. FINDINGS: PULMONARY ARTERIES: No filling defects are seen in the pulmonary arteries through the segmental level. LUNGS: There is no consolidation or pneumothorax . 4 mm pulmonary nodule peripheral right midlung. There is central lobar emphysema bilaterally. No acute infiltrates. PLEURAE: There is no pleural thickening or pleural effusion. MEDIASTINUM: There is good visualization of the great vessels of the middle mediastinum. No evidence of mediastin al or hilar adenopathy/mass. MUSCULOSKELETAL: Within normal limits for patient age. MISCELLANEOUS: Diffuse enlargement of the liver. CONCLUSION: 1. No evidence of PE. 2. 5 mm pulmonary nodule mid right lung. 3. No acute pulmonary infiltrates. Adriel Osuna MD on November 01, 2017 at 13:49 Board Certified Radiologist. This report was verified electronically.
--- NOTE | 2017-11-01 14:38 | PD.CONS ---
Consult Service Palliative Care Consult Requested By Dr Perez . Primary Care Physician Unknown Reason for Consultation a. To assist with evaluation and management of symptoms including: Pain, weakness b. To assist medical decision maker(s) with: better understanding of current medical conditions; weighing benefits/burdens of medical treatment options; making medical treatment decisions. HPI History of Present Illness This 57-year-old patient presented to the ED on 11/01/17 with complaints of pain, weakness. He is also reporting not eating well, and weight loss. He apparently has remote history of rectal cancer and laryngeal cancer. He recently was found to have some liver metastasis felt not to be from either pre- existing cancer, seen by oncology outpatient October 28. At that time palliative treatment was recommended. He was also given prescriptions for morphine and oxycodone. He did not take the morphine due to an allergy to sulfa drugs and reported oxycodone not helping. Symptoms have continued to worsen. He reports weakness causing a fall that morning, he called 911. * CXR= small right pleural effusion with focal atelectasis in right lung base. Left lung grossly clear. CTA= no evidence of PE, 2.5 mm pulmonary nodule mid right lung. No acute pulmonary infiltrates. WBC 18.8. Hemoglobin 10.6/ hematocrit 31.9. Potassium 7.3. BUN 61/creatinine 1.45. GFR 60. Elevated LFTs: AST 1528, ALT 303, alk phosphatase 1349. Total bilirubin 4.6. Albumin 1.9. Lipase 31. * Palliative care consulted to assist with clarification of goals of treatment. Nephrology consultation pending. Oncology consultation pending. * Oncology history of per most recent oncology note outpatient 10/28/ Dr Maldonado: Patient treated for 2 separate synchronous malignancies. Laryngeal cancer developed 2015, post radiation to land. Subsequent developed colorectal cancer with surgery and radiation. Not clear that he has received chemotherapy. Oncology had not received prior oncology records at that time. Patient reported he had been given chemotherapy pills but he never took them. Colorectal cancer was treated with full left colectomy and lower anterior resection and anastomosis with diverting loop colostomy. 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 3 lymph nodes were identified. He underwent reversal of colostomy. He did not follow-up with oncology further after surgeries. Most recently patient developed increased abdominal pain and girth. CT scan obtained indicated multiple metastatic lesions to the liver. he had also been coming becoming progressively anemic. He was sent to the ER and required 2 units of packed cells. CT-guided biopsy of liver was completed. He followed up outpatient with oncology to review findings of biopsy 10/28. At that time he reported poor appetite progressive weakness in abdominal pain. He also had abdominal distention secondary to large mass. He also had lower extremity edema. Oncology reviewed pathology with patient and family. Biopsy consistent with necrotic poorly differentiated non-small cell carcinoma studies do not support: Adenocarcinoma. This appears to either be lung primary or another upper GI primary malignancy but based on morphology not consistent with metastatic colon cancer. Noted he would discuss case further with pathology to see if additional staining could be done which might help identify primary. Based on history of laryngeal cancer this may most likely be metastatic head and neck cancer. Reviewed that stage IV disease is not curable. Any treatment would be palliative in nature. Goal would be to control disease and minimize toxicity. Will proceed with PET scan. Referred to interventional radiology for port placement. Plan for treatment with adjusted dose carboplatin and Taxol. At that time he prescribed him long- acting morphine as well as oxycodone as needed. He was also treated for oral thrush with nystatin. Plan for follow-up in 2 weeks. Patient seen in room multiple family members present. Patient is lethargic, very weak not able to stay awake for conversation. Family requests we let him rest. Met with family at length approximately 45 minutes. Family details significant decline in the past action in the past few weeks to month. The detail 20-30 pounds of weight loss in the past 1 month. They describe Mr. Waed is usually very energetic man who until recently even insisted on trying to work at his job at [employer]. They have noticed steep decline even since his outpatient oncology appointment last Monday. He has been eating and drinking very little. He has been urinating a little. He has had episodes of dizziness and weakness resulting in falls. He has had severe abdominal pain that did not seem to respond to outpatient oral medications given. Discussed with medical attending, nephrology, nurse Function/Cognitive Trajectory Previously independent with all ADLs, very active and energetic. No functional or cognitive deficits. However over the past few days to week some mild confusion, and significant weakness limiting functional abilities Review of Systems Constitutional: COMPLAINS OF: Fatigue, Weight loss (20-30 pounds), Chills, Change in appetite, Pain, Generalized weakness, DENIES: Fever Endocrine: COMPLAINS OF: Heat/cold intolerance Ears, nose, mouth, throat: DENIES: Oral lesions, Throat pain Respiratory: COMPLAINS OF: Cough (Occasional mucousy cough), Sputum production (Family reports some mucus), DENIES: Hemoptysis, Shortness of breath Cardiovascular: COMPLAINS OF: Dyspnea on Exertion, Lower Extremity Edema ( Onset the past couple weeks), DENIES: Chest pain, Syncope Gastrointestinal: COMPLAINS OF: Abdominal pain, Constipation, Nausea, Vomiting (Occasional), Anorexia, DENIES: Diarrhea, Difficulty Swallowing Genitourinary: DENIES: Hematuria Musculoskeletal: COMPLAINS OF: Back pain, Decreased range of motion Integumentary: DENIES: Rash Neurologic: COMPLAINS OF: Poor Balance, DENIES: Headache Psychiatric: COMPLAINS OF: Confusion (Mild) Past Family Social History Coded Allergies: Sulfa (Sulfonamide Antibiotics) (Verified Allergy, Severe, Hives, 11/01/17) skin peeling Past Medical History rectal cancer 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 Past Surgical History Colon resection, ileostomy Lymph node removal left neck. . Reported Medications Nebulizer/Adult Mask (N/A) 1 Kit Kit Kit .XX DIRECTED Ipratropium Neb (Ipratropium Marcell) 0.5 Mg/2.5 Ml Amp 0.5 Mg NEB QID 30 Days Albuterol Neb (Albuterol Sulfate) 2.5 Mg/3 Ml Neb 2.5 Mg NEB QID NEB 30 Days Dok (Docusate Sodium) 100 Mg Cap 100 Mg PO BID 30 Days Morphine ER (Morphine Sulfate) 15 Mg Tab 15 Mg PO Q8HR Ventolin Hfa 18 GM Inh (Albuterol Sulfate) 90 Mcg/Act Aer 1 Puff INH Q4H PRN . Current Medications Medications (Trade) Dose Ordered Sig/Makayla Route Start Time Stop Time Status Last Admin (Dilaudid Pf Inj) 1 mg Q4H PRN IV PUSH 11/01/17 15:00 11/01/17 15:33 (Duoneb Neb) 1 ampule Q6HR WHILE AWAKE NEB NEB 11/01/17 20:00 Sodium Chloride 1,000 ml @ 100 mls/hr Q10H IV 11/01/17 15:30 11/01/17 15:57 Family History No family history of malignancy . Substance Use Tobacco: Quit smoking 1 year ago Alcohol: None Prescription med abuse: None Illicits: None . Psychosocial History . Originally from [place] though has lived in [place] for many years. Supported by 3 stepchildren, 2 of which are present today for my meeting, they are from [place]. 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 . Spiritual/Cultural Factors Yarsanism jennifer, family indicates well supported by outside jennifer community does not want material attendant visits at this time. Living Will: Never completed Health Care Surrogate: Never completed Durable Power of Safety Net Maker: Never completed Ethical and Legal Issues Patient with some mild confusion. Patient very lethargic. Patient does not appear able to make his own informed decisions. Per [place] statutes his would be appropriate legal proxy. She is making decisions with support of their children. She wishes to include him when he is awake enough to participate. Physical Exam Vital Signs Date Time Temp Pulse Resp B/P (MAP) Pulse Ox O2 Delivery O2 Flow Rate FiO2 11/01/17 13:00 116 24 108/80 (89) 100 Nasal Cannula 2.00 11/01/17 12:24 100 Nasal Cannula 2.00 11/01/17 12:24 24 100 Nasal Cannula 2.00 11/01/17 12:00 110 26 128/90 (103) 100 Nasal Cannula 2.00 11/01/17 09:47 97.5 114 26 136/79 (98) 100 Exam CONSTITUTIONAL/GENERAL: Extremely frail cachectic male, lethargic TUBES/LINES/DRAINS: Peripheral IV bilateral upper extremities SKIN: No wounds seen anteriorly. Skin warm and dry. Feet are cool. HEAD: Atraumatic. Normocephalic. EYES: Pupils equal and round and reactive--does not keep eyes open for longer than a few seconds extraocular motions intact. No injection or drainage. Fundi not examined. ENT: Nose without bleeding or purulent drainage. Partially open his mouth-- throat without visible erythema, exudates, masses, or lesions. NECK: Trachea midline. Supple, nontender. No palpable thyroid enlargement or nodularity. CARDIOVASCULAR: Regular rate and rhythm without murmur. No JVD. Peripheral pulses symmetric. Significant pedal, lower leg edema, feet are cool to touch left more so than right. Pedal pulses faint/30. RESPIRATORY/CHEST: Symmetric, unlabored respirations. On room air. Clear to auscultation, decreased air to bases. Breath sounds equal bilaterally. GASTROINTESTINAL: Abdomen soft, +tender, +distended. Large firm mass encompassing entire abdomen. Bowel sounds not heard GENITOURINARY: Without palpable bladder distension. MUSCULOSKELETAL: Extremities without clubbing, cyanosis.+3 Edema to feet, lower legs.joint tenderness or effusion noted. No calf tenderness. No mottling or clubbing. LYMPHATICS: No palpable cervical or supraclavicular adenopathy. NEUROLOGICAL: Very lethargic. Week. Appears oriented to self and family. Does not stay awake long enough to answer other questions. Does move all 4 extremities with generalized weakness. PSYCHIATRIC: No obvious anxiety/depression. no apparent hallucinations or other psychotic thought process. Diagnostic Tests Laboratory Laboratory Tests Test 11/01/17 10:15 White Blood Count 18.8 TH/MM3 (4.0-11.0) Red Blood Count 3.45 MIL/MM3 (4.50-5.90) Hemoglobin 10.6 GM/DL (13.0-17.0) Hematocrit 31.9 % (39.0-51.0) Mean Corpuscular Volume 92.2 FL (80.0-100.0) Mean Corpuscular Hemoglobin 30.7 PG (27.0-34.0) Mean Corpuscular Hemoglobin Concent 33.2 % (32.0-36.0) Red Cell Distribution Width 16.3 % (11.6-17.2) Platelet Count 266 TH/MM3 (150-450) Mean Platelet Volume 9.6 FL (7.0-11.0) Neutrophils (%) (Auto) 94.3 % (16.0-70.0) Lymphocytes (%) (Auto) 1.4 % (9.0-44.0) Monocytes (%) (Auto) 3.9 % (0.0-8.0) Eosinophils (%) (Auto) 0.0 % (0.0-4.0) Basophils (%) (Auto) 0.4 % (0.0-2.0) Neutrophils # (Auto) 17.7 TH/MM3 (1.8-7.7) Lymphocytes # (Auto) 0.3 TH/MM3 (1.0-4.8) Monocytes # (Auto) 0.7 TH/MM3 (0-0.9) Eosinophils # (Auto) 0.0 TH/MM3 (0-0.4) Basophils # (Auto) 0.1 TH/MM3 (0-0.2) CBC Comment DIFF FINAL Differential Comment Prothrombin Time 17.9 SEC (9.8-11.6) Prothromb Time International Ratio 1.8 RATIO Activated Partial Thromboplast Time 25.9 SEC (24.3-30.1) D-Dimer Quantitative (PE/DVT) 21.80 MG/L FEU (0.00-0.50) Blood Urea Nitrogen 61 MG/DL (7-18) Creatinine 1.45 MG/DL (0.60-1.30) Random Glucose 57 MG/DL (74-106) Total Protein 6.3 GM/DL (6.4-8.2) Albumin 1.9 GM/DL (3.4-5.0) Calcium Level 8.9 MG/DL (8.5-10.1) Alkaline Phosphatase 1349 U/L (45-117) Aspartate Amino Transf (AST/SGOT) 1528 U/L (15-37) Alanine Aminotransferase (ALT/SGPT) 303 U/L (12-78) Total Bilirubin 4.6 MG/DL (0.2-1.0) Sodium Level 129 MEQ/L (136-145) Potassium Level 7.3 MEQ/L (3.5-5.1) Chloride Level 90 MEQ/L (98-107) Carbon Dioxide Level 21.6 MEQ/L (21.0-32.0) Anion Gap 17 MEQ/L (5-15) Estimat Glomerular Filtration Rate 60 ML/MIN (>89) B-Type Natriuretic Peptide 64 PG/ML (0-100) Lipase 31 U/L (73-393) Result Diagram: 11/01/17 1015 11/01/[address] Angiography 11/01/17 1134 Signed Impressions: Service Date/Time: Wednesday, November 01, 2017 13:37 - CONCLUSION: 1. No evidence of PE. 2. 5 mm pulmonary nodule mid right lung. 3. No acute pulmonary infiltrates. Adriel Osuna MD Chest X-Ray 11/01/17 0000 Signed Impressions: Service Date/Time: Wednesday, November 01, 2017 10:33 - CONCLUSION: 1. Small right pleural effusion with focal atelectasis in the right lung base.. 2. The left lung is grossly clear. Adriel Osuna MD Patient/Family Conference Family Conference Time (mins): 45 Family Conference Location: [facility] Issues Discussed: Met with patient and 2 adult children at length discussion included: * Palliative care role, purpose, approach * Additional medical, psychosocial, and spiritual history * Patients general health, functional status, and cognitive changes in the months leading up to the current hospitalization * Patient/family understanding of the current medical problems; review of multiple acute issues which may become life-threatening, as related to underlying etiology of malignancy which is not curable, much review of supportive care, as well as associated benefits/burdens with any possible interventions such as when family asks about parental feeding, tube feeding, pain regimen etc. * Patient/family understanding of prognosis * Patients goals of care as best understood from advance directives and/or conversations and/or values * Current medical treatment options and benefits/burdens of those options * Likely scenarios comparing ongoing aggressive care with a transition to comfort measures only--review of hospice role, philosophy, comfort focus * Legal decision maker- per [place] statutes, supported by children * CODE STATUS--review benefits/burdens/limitations of CPR, family elects remain full code for now though further discussions planned within the family * Questions answered to the best of my ability * Palliative care contact information provided : At this time family speaking at length with one another and multiple consultants and specialists. They share that up until last week with oncology appointment patient was "a fighter" and wanted to do everything possible to try to get chemotherapy and overcome his cancer. When I discuss oncology notation that chemotherapy was palliative in nature, they indicate that they were not aware that it was not expected to be curative. They feel he has had very sudden sharp decline. For now they wish to try to maximize supportive medical treatments. They are going to be talking with patient and as a family regarding CODE STATUS and goals going forward of aggressive course which will likely at some point involved in ICU course versus comfort measures. Assessment and Plan Disease Oriented Problem List: (1) H/O laryngeal cancer (2) H/O malignant neoplasm of rectum (3) COPD (chronic obstructive pulmonary disease) (4) Elevated d-dimer (5) Liver metastases (6) Transaminitis Symptom Scale: (1) Pain, abdominal (2) Weakness Pertinent Non-Medical Issues Psychosocial:. Originally from [place] though has lived in [place] for many years. Supported by 3 stepchildren, 2 of which are present today for my meeting, they are from [place]. 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 Spiritual: Yarsanism jennifer, well supported by outside jennifer community. Does not want material attendant visit at this time Legal:Patient with some mild confusion. Patient very lethargic. Patient does not appear able to make his own informed decisions. Per [place] statutes his would be appropriate legal proxy. She is making decisions with support of their children. She wishes to include him when he is awake enough to participate. Ethical issues impacting care: No ethical issues identified Important Contacts spouse Cristian Wade [phone] . Prognosis This patient was admitted for pain and weakness. He has fairly new findings of metastatic liver cancer. He has history of laryngeal, and colorectal cancers. Has recently been seen by oncology who was only able to offer palliative chemotherapy. He is malnourished. He is weak. + Leukocytosis. High risk for further decline, , even with ongoing supportive measures. Appropriate for hospice if goals compatible. Plan Legal decision maker:Patient with some mild confusion. Patient very lethargic. Patient does not appear able to make his own informed decisions. Per [place] statutes his would be appropriate legal proxy. She is making decisions with support of their children. She wishes to include him when he is awake enough to participate. Goals: At this time family speaking at length with one another and multiple consultants and specialists. They share that up until last week with oncology appointment patient was "a fighter" and wanted to do everything possible to try to get chemotherapy and overcome his cancer. When I discuss oncology notation that chemotherapy was palliative in nature, they indicate that they were not aware that it was not expected to be curative. They feel he has had very sudden sharp decline. For now they wish to try to maximize supportive medical treatments. They are going to be talking with patient and as a family regarding CODE STATUS and goals going forward of aggressive course which will likely at some point involve in ICU course versus comfort measures. CODE STATUS: Full code by default SYMPTOMS: --Abdominal pain-patient with recently diagnosed metastatic liver lesion. Very large liver mass. + Acute renal failure. Currently has prn hydromorphone IV available; appears effective thus far sparing doses. Will continue to evaluate. Cautious use of opiates if goals aggressive. --Weakness-patient with multiple falls in the past few days. Profound weakness. Deconditioning significant weight loss over the past few weeks. Likely secondary to advancing disease process as well as malnutrition and very little oral intake. Not likely reversible at this point unless underlying etiologies were able to be addressed. --Respiratory-high risk for dyspnea and respiratory distress secondary to altered mental status, hepatic encephalopathy, though currently breathing comfortably on room air. Palliative care will continue to follow during hospital course as condition evolves, to assist patient/decision-maker with understanding of medical conditions, weighing benefits/burdens of treatment options, for clarification of goals of treatment. Additionally will assist with any symptoms of palliative concern Time Spent Total Floor Time (mins): 75 (Chart review, PE, extensive meeting with family, discussion with attending, nephrology, nurse) Thank you for the opportunity to participate in the care of Mr. Wade. Attestation To help prompt me to consider important information that might be impacting today's encounter and assessment, information from prior notes written by myself or my colleagues may have been "brought forward" into today's note. My signature on this note, however, is an attestation that I personally performed the exam, history, and/or decision-making noted today, and, unless otherwise indicated, the interactions with patient, family, and staff as well as the review of records all occurred today. I also attest that the listed assessment and stated plan reflect my best clinical judgment today based on the combination of historical information, prior notes, and today's exam/ interactions. When time spent is documented, it refers only to time spent today by the signer, or if indicated, combined time spent today by collaborating physician/nurse practitioner. Amy Gonzalez November 01, 2017 14:38
--- NOTE | 2017-11-01 14:53 | HHI.HP ---
HPI Service [facility] Hospitalists Primary Care Physician Dr. Lev Sánchez Admission Diagnosis hyperkalemia, transaminitis, liver mets Chief Complaint: Generalized weakness, abdominal pain Travel History International Travel<30 Days: No Contact w/Intl Traveler <30 Da: No Traveled to Known Affected Are: No History of Present Illness Mr. Wade is an unfortunate 57 y/o male with hx of laryngeal cancer in 2015 and received radiation treatments under the care of Dr. Gamble in [place]. He subsequently developed a colorectal cancer in 2016 and had surgery and radiation. The patient had full left colectomy and lower anterior resection and anastomosis with diverting loop colostomy in 04/2017. The colorectal cancer was a grade II, moderately differentiated adenocarcinoma which invaded through the muscularis propria into the pericolonic tissue. Margins were clear. There were 3 lymph nodes that were identified. This was a T3 N0 disease. He did not have a followup with the medical oncologist after that. He had reversal of colostomy. Pt was recently admitted to [facility] in early October 2017 with increased abdominal pain and girth and anemia. Prior to that admission he had CT Abd/pelvis which revealed multiple metastatic lesions in the liver. Pt required transfusion with 2 units of packed red blood cells. He had a CT-guided biopsy of the liver lesions. The pathology from the liver biopsy is consistent with necrotic poorly differentiated non-small cell carcinoma. Immunohistochemical studies do not support a colon adenocarcinoma. He was seen in followup by Dr. Maldonado on 10/26 for review of his pathology. 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 It was explained to him that stage IV disease is not curable and that all treatment would be palliative in nature according to the documentation from that visit. Pt overall is quite weak. His appetite is poor and he has not been eating enough and has lost quite a bit of weight. He reportedly fell at home this morning due to generalized weakness and this is what prompted his evaluation in the ED today. His labs at admission noted several abnormalities including Na 129, K 7.3, Cr 1.45, CO2 21, ALT 300, AST 1500. His baseline creatinine runs around 0.5. He was given IV insulin (10 units), sodium bicarbonate, Kayexalate, IV calcium gluconate. Repeat labs are pending. Palliative has been asked to evaluate the patient. Pt has continued to have intractable abdominal pain likely related to tumor burden. He was prescribed long-acting morphine and oxycodone 5 mg every 4-6 hours. He has not been taking the Morphine because of an allergy to sulfa he was afraid of an allergic reaction. The oxycodone has not been controlling the pain. Pt was also recently prescribed Nystatin for thrush. He was given IV Dilaudid 2mg in the ED. Pt was being referred outpt for PET scan and to IR for port placement. He was recommended to start treatment with dose adjusted carboplatin and Taxol once he was stable for chemo. Review of Systems Constitutional: COMPLAINS OF: Weight loss, Change in appetite Gastrointestinal: COMPLAINS OF: Abdominal pain Past Family Social History Past Medical History Laryngeal cancer s/p chemotherapy and radiation therapy Rectal Cancer s/p radiation therapy and surgical resection Widespread metastatic disease to the liver Past Surgical History Descending colon, sigmoid colon and a rectal resection with low anterior anastomosis with mobilization of the splenic flexure and diverting loop ileostomy in 04/2017 Ileostomy revision in 07/2017 LN removal left neck Reported Medications Nebulizer/Adult Mask (N/A) 1 Kit Kit Kit .XX DIRECTED Ipratropium Neb (Ipratropium [place]) 0.5 Mg/2.5 Ml Amp 0.5 Mg NEB QID 30 Days Albuterol Neb (Albuterol Sulfate) 2.5 Mg/3 Ml Neb 2.5 Mg NEB QID NEB 30 Days Dok (Docusate Sodium) 100 Mg Cap 100 Mg PO BID 30 Days Morphine ER (Morphine Sulfate) 15 Mg Tab 15 Mg PO Q8HR Ventolin Hfa 18 GM Inh (Albuterol Sulfate) 90 Mcg/Act Aer 1 Puff INH Q4H PRN Allergies: Coded Allergies: Sulfa (Sulfonamide Antibiotics) (Verified Allergy, Severe, Hives, 11/01/17) skin peeling Family History Noncontributory Social History Pt quit smoking tobacco 1 year ago Denies any alcohol or illicit drug use Pt is and lives locally Physical Exam Vital Signs Vital Signs Date Time Temp Pulse Resp B/P (MAP) Pulse Ox O2 Delivery O2 Flow Rate FiO2 11/01/17 14:18 11/01/17 13:00 116 24 108/80 (89) 100 Nasal Cannula 2.00 11/01/17 12:24 100 Nasal Cannula 2.00 11/01/17 12:24 24 100 Nasal Cannula 2.00 11/01/17 12:00 110 26 128/90 (103) 100 Nasal Cannula 2.00 11/01/17 09:47 97.5 114 26 136/79 (98) 100 Physical Exam GENERAL: This is a well-nourished, well-developed patient, in no apparent distress. SKIN: No rashes, ecchymoses or lesions. Cool and dry. HEENT: Atraumatic. Normocephalic. No temporal or scalp tenderness. No scleral icterus. Airway patent. NECK: Trachea midline, supple, nontender. CARDIO: Regular. RESP: CTA bilaterally. No wheezes, rales, or rhonchi. ABD: Firm, distended, hepatomegaly. EXT: Bilateral LE pitting edema to the thighs. NEURO: Lethargic. Motor and sensory grossly within normal limits. Normal speech. Laboratory Laboratory Tests Test 11/01/17 10:15 White Blood Count 18.8 Red Blood Count 3.45 Hemoglobin 10.6 Hematocrit 31.9 Mean Corpuscular Volume 92.2 Mean Corpuscular Hemoglobin 30.7 Mean Corpuscular Hemoglobin Concent 33.2 Red Cell Distribution Width 16.3 Platelet Count 266 Mean Platelet Volume 9.6 Neutrophils (%) (Auto) 94.3 Lymphocytes (%) (Auto) 1.4 Monocytes (%) (Auto) 3.9 Eosinophils (%) (Auto) 0.0 Basophils (%) (Auto) 0.4 Neutrophils # (Auto) 17.7 Lymphocytes # (Auto) 0.3 Monocytes # (Auto) 0.7 Eosinophils # (Auto) 0.0 Basophils # (Auto) 0.1 CBC Comment DIFF FINAL Differential Comment Prothrombin Time 17.9 Prothromb Time International Ratio 1.8 Activated Partial Thromboplast Time 25.9 D-Dimer Quantitative (PE/DVT) 21.80 Blood Urea Nitrogen 61 Creatinine 1.45 Random Glucose 57 Total Protein 6.3 Albumin 1.9 Calcium Level 8.9 Alkaline Phosphatase 1349 Aspartate Amino Transf (AST/SGOT) 1528 Alanine Aminotransferase (ALT/SGPT) 303 Total Bilirubin 4.6 Sodium Level 129 Potassium Level 7.3 Chloride Level 90 Carbon Dioxide Level 21.6 Anion Gap 17 Estimat Glomerular Filtration Rate 60 B-Type Natriuretic Peptide 64 Lipase 31 Result Diagram: 11/01/17 1015 11/01/17 [address] Angiography 11/01/17 1134 Signed Impressions: Service Date/Time: Wednesday, November 01, 2017 13:37 - CONCLUSION: 1. No evidence of PE. 2. 5 mm pulmonary nodule mid right lung. 3. No acute pulmonary infiltrates. Adriel Osuna MD Chest X-Ray 11/01/17 0000 Signed Impressions: Service Date/Time: Wednesday, November 01, 2017 10:33 - CONCLUSION: 1. Small right pleural effusion with focal atelectasis in the right lung base.. 2. The left lung is grossly clear. Adriel Osuna MD Caprini VTE Risk Assessment Caprini VTE Risk Assessment: Mod/High Risk (score >= 2) Caprini Risk Assessment Model Point Value = 1 Point Value = 2 Point Value = 3 Point Value = 5 Age 41-60 Minor surgery BMI > 25 kg/m2 Swollen legs Varicose veins or History of unexplained or recurrent spontaneous Oral contraceptives or hormone replacement Sepsis (< 1 month) Serious lung disease, including pneumonia (< 1 month) Abnormal pulmonary function Acute myocardial infarction Congestive heart failure (< 1 month) History of inflammatory bowel disease Medical patient at bed rest Age 61-74 Arthroscopic surgery Major open surgery (> 45 min) Laparoscopic surgery (> 45 min) Malignancy Confined to bed (> 72 hours) Immobilizing plaster cast Central venous access Age >= 75 History of VTE Family history of VTE Factor V Leiden Prothrombin [id number] Lupus anticoagulant Anticardiolipin antibodies Elevated serum homocysteine Heparin-induced thrombocytopenia Other congenital or acquired thrombophilia Stroke (< 1 month) Elective arthroplasty Hip, pelvis, or leg fracture Acute spinal cord injury (< 1 month) Prophylaxis Regimen Total Risk Factor Score Risk Level Prophylaxis Regimen 0-1 Low Early ambulation 2 Moderate Order ONE of the following: *Sequential Compression Device (SCD) *Heparin 5000 units SQ BID 3-4 Higher Order ONE of the following medications: *Heparin 5000 units SQ TID *Enoxaparin/Lovenox 40 mg SQ daily (WT < 150 kg, CrCl > 30 mL/min) *Enoxaparin/Lovenox 30 mg SQ daily (WT < 150 kg, CrCl > 10-29 mL/min) *Enoxaparin/Lovenox 30 mg SQ BID (WT < 150 kg, CrCl > 30 mL/min) AND/OR *Sequential Compression Device (SCD) 5 or more Highest Order ONE of the following medications: *Heparin 5000 units SQ TID (Preferred with Epidurals) *Enoxaparin/Lovenox 40 mg SQ daily (WT < 150 kg, CrCl > 30 mL/min) *Enoxaparin/Lovenox 30 mg SQ daily (WT < 150 kg, CrCl > 10-29 mL/min) *Enoxaparin/Lovenox 30 mg SQ BID (WT < 150 kg, CrCl > 30 mL/min) AND *Sequential Compression Device (SCD) Assessment and Plan Problem List: (1) Weakness ICD Codes: R53.1 - Weakness Status: Acute Plan: Metastatic liver disease Generalized weakness Poor oral intake, general decline Dehydration LORENZO Hyperkalemia - Pt is a 57 y/o male with hx of laryngeal cancer in 2016 and received radiation treatments under the care of Dr. Gamble in [place]. He subsequently developed a colorectal cancer in 2017 and had surgery and radiation. Pt was recently admitted to [facility] in early October 2017 with increased abdominal pain and girth and anemia. Prior to that admission he had CT Abd/pelvis which revealed multiple metastatic lesions in the liver. He had a CT-guided biopsy and the pathology from the liver biopsy is consistent with necrotic poorly differentiated non-small cell carcinoma. Immunohistochemical studies do not support a colon adenocarcinoma. He was seen in followup by Dr. 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 It was explained to him that stage IV disease is not curable and that all treatment would be palliative in nature according to that documentation. - Pt is overall quite weak with poor appetite and weight loss. He reportedly fell at home this morning due to generalized weakness and this is what prompted his evaluation in the ED today. - His labs at admission noted several abnormalities including Na 129, K 7.3, Cr 1.45, CO2 21, ALT 300, AST 1500. His baseline creatinine runs around 0.5. He was given IV insulin (10 units), sodium bicarbonate, Kayexalate , IV calcium gluconate. Repeat labs are pending. - Palliative Care has been consulted and goals of care were discussed with the pts family. At this point they are wanting full code until they can have a family discussion to decide on continued aggressive measures vs. Hospice. At this time the pt is Hospice appropriate. - Consult the pt Oncologist. - Nephrology was consulted from the ED. - Pt has been started on some IVF. Of note pt received IV contrast for CTA today. - Monitor labs closely - Monitor vitals closely - Pt refused ANAID hose - DVT prophylaxis with SCDs Abdominal pain - Pt has continued to have intractable abdominal pain likely related to tumor burden. - He was prescribed long-acting morphine and oxycodone 5 mg every 4-6 hours. He has not been taking the Morphine because of an allergy to sulfa he was afraid of an allergic reaction. The oxycodone has not been controlling the pain. - He was given IV Dilaudid 2mg in the ED. - Pain control as BP allows Hx of Laryngeal cancer Hx of colon cancer - See above (2) Transaminitis ICD Codes: R74.0 - Nonspecific elevation of levels of transaminase and lactic acid dehydrogenase [LDH] Status: Acute (3) Liver metastases ICD Codes: C78.7 - Secondary malignant neoplasm of liver and intrahepatic bile duct Status: Acute (4) Hyperkalemia ICD Codes: E87.5 - Hyperkalemia Status: Acute (5) Pain, abdominal ICD Codes: R10.9 - Unspecified abdominal pain Status: Chronic (6) LORENZO (acute kidney injury) ICD Codes: N17.9 - Acute kidney failure, unspecified Status: Acute Assessment and Plan Patient examined. Assessment and plan formulated with Nia Tiawri PA-C. I agree with the above. nonsmall cell ca with mets to liver. stage 4. incurable presents with confusion,poor po intake, lorenzo. discussed with his oncologist. poor prognosis. to weak for treatment. family present and would like ivf hydration but leaning toward dnr and possible hospice. Physician Certification 2 Midnight Certification Type: Admission for Inpatient Services Order for Inpatient Services The services are ordered in accordance with Medicare regulations or non- Medicare payer requirements, as applicable. In the case of services not specified as inpatient-only, they are appropriately provided as inpatient services in accordance with the 2-midnight benchmark. Estimated LOS (days): 3 3 days is the estimated time the patient will need to remain in the hospital, assuming treatment plan goals are met and no additional complications. Post-Hospital Plan: Not yet determined Nia Tiwari November 01, 2017 14:53 Kurt De Anda MD November 01, 2017 20:51
[2017-11-01] MEDS ORDERED: HYDROmorphone HCL PF 0.5 MG/0.5 ML SYRINGE IV PUSH PRN (15:00)
--- NOTE | 2017-11-01 15:31 | PD.CONS ---
HPI Service Nephrology Consult Requested By Reason for Consult Hyperkalemia Primary Care Physician Unknown History of Present Illness This is a very unfortunate 57 y/o male patient. The following was taken from H& P from admitting physician: He has a hx of laryngeal cancer in 2015 and received radiation treatments under the care of Dr. Gamble in [place]. He subsequently developed a colorectal cancer in 2016 and had surgery and radiation. The patient had full left colectomy and lower anterior resection and anastomosis with diverting loop colostomy in 2016. The colorectal cancer was a grade II, moderately differentiated adenocarcinoma which invaded through the muscularis propria into the pericolonic tissue. Margins were clear. There were 3 lymph nodes that were identified. This was a T3 N0 disease. He did not have a followup with the medical oncologist after that. He did have reversal of the colostomy. Pt was recently admitted to [facility] in early October 2017 with increased abdominal pain and girth and anemia. Prior to that admission he had CT Abd/pelvis which revealed multiple metastatic lesions in the liver. Pt required transfusion with 2 units of packed red blood cells. He had a CT-guided biopsy of the liver lesions. The pathology from the liver biopsy is consistent with necrotic poorly differentiated non-small cell carcinoma. Immunohistochemical studies do not support a colon adenocarcinoma. He was seen in followup by Dr. Maldonado on 10/26 for review of his pathology. 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 It was explained to him that stage IV disease is not curable and that all treatment would be palliative in nature according to the documentation from that visit. He came to ER for generalized weakness, fall at home. His admission labs have several abnormalities: Na 129, K 7.3, Cr 1.45, CO2 21, ALT 300, AST 1500. His baseline creatinine runs around 0.5.He was given IV insulin (10 units), sodium bicarbonate, Kayexalate, IV calcium gluconate. Repeat labs are pending Palliative has been asked to evaluate the patient. We were consulted to assist with hyperkalemia management. On exam he is profoundly weak, cachectic, appears chronically ill. (Tona Cortez) Review of Systems ROS Limitations: Clinical Condition, Unresponsive (Tona Cortez) Past Family Social History Allergies: Coded Allergies: Sulfa (Sulfonamide Antibiotics) (Verified Allergy, Severe, Hives, 11/01/17) skin peeling Past Medical History Laryngeal cancer s/p chemotherapy and radiation therapy Rectal Cancer s/p radiation therapy and surgical resection Widespread metastatic disease to the liver Past Surgical History Descending colon, sigmoid colon and a rectal resection with low anterior anastomosis with mobilization of the splenic flexure and diverting loop ileostomy in 04/2017 Ileostomy revision in 07/2017 LN removal left neck Reported Medications Nebulizer/Adult Mask (N/A) 1 Kit Kit Kit .XX DIRECTED Ipratropium Neb (Ipratropium [place]) 0.5 Mg/2.5 Ml Amp 0.5 Mg NEB QID 30 Days Albuterol Neb (Albuterol Sulfate) 2.5 Mg/3 Ml Neb 2.5 Mg NEB QID NEB 30 Days Dok (Docusate Sodium) 100 Mg Cap 100 Mg PO BID 30 Days Morphine ER (Morphine Sulfate) 15 Mg Tab 15 Mg PO Q8HR Ventolin Hfa 18 GM Inh (Albuterol Sulfate) 90 Mcg/Act Aer 1 Puff INH Q4H PRN Active Ordered Medications Current Medications Medications (Trade) Dose Ordered Sig/[place]la Route Start Time Stop Time Status Last Admin (Dilaudid Pf Inj) 1 mg Q4H PRN IV PUSH 11/01/17 15:00 (Duoneb Neb) 1 ampule Q6HR WHILE AWAKE NEB NEB 11/01/17 20:00 Sodium Chloride 1,000 ml @ 100 mls/hr Q10H IV 11/01/17 15:30 UNV Family History No hx of renal impairment Social History Former smoker Denies ETOH Independent (Tona Cortez) Physical Exam Vital Signs Vital Signs Date Time Temp Pulse Resp B/P (MAP) Pulse Ox O2 Delivery O2 Flow Rate FiO2 11/01/17 15:08 Room Air 11/01/17 14:18 11/01/17 13:00 116 24 108/80 (89) 100 Nasal Cannula 2.00 11/01/17 12:24 100 Nasal Cannula 2.00 11/01/17 12:24 24 100 Nasal Cannula 2.00 11/01/17 12:00 110 26 128/90 (103) 100 Nasal Cannula 2.00 11/01/17 09:47 97.5 114 26 136/79 (98) 100 Physical Exam Emaciated, cachectic AAM patient Lethargic, eyes closed mumbles when spoken to Poor inspiratory effort, on oxygen, no wheezing Abd distended, very firm, not extremely tender Ext: 2-3 edema in legs Laboratory Laboratory Tests Test 11/01/17 10:15 White Blood Count 18.8 Red Blood Count 3.45 Hemoglobin 10.6 Hematocrit 31.9 Mean Corpuscular Volume 92.2 Mean Corpuscular Hemoglobin 30.7 Mean Corpuscular Hemoglobin Concent 33.2 Red Cell Distribution Width 16.3 Platelet Count 266 Mean Platelet Volume 9.6 Neutrophils (%) (Auto) 94.3 Lymphocytes (%) (Auto) 1.4 Monocytes (%) (Auto) 3.9 Eosinophils (%) (Auto) 0.0 Basophils (%) (Auto) 0.4 Neutrophils # (Auto) 17.7 Lymphocytes # (Auto) 0.3 Monocytes # (Auto) 0.7 Eosinophils # (Auto) 0.0 Basophils # (Auto) 0.1 CBC Comment DIFF FINAL Differential Comment Prothrombin Time 17.9 Prothromb Time International Ratio 1.8 Activated Partial Thromboplast Time 25.9 D-Dimer Quantitative (PE/DVT) 21.80 Blood Urea Nitrogen 61 Creatinine 1.45 Random Glucose 57 Total Protein 6.3 Albumin 1.9 Calcium Level 8.9 Alkaline Phosphatase 1349 Aspartate Amino Transf (AST/SGOT) 1528 Alanine Aminotransferase (ALT/SGPT) 303 Total Bilirubin 4.6 Sodium Level 129 Potassium Level 7.3 Chloride Level 90 Carbon Dioxide Level 21.6 Anion Gap 17 Estimat Glomerular Filtration Rate 60 B-Type Natriuretic Peptide 64 Lipase 31 (Tona Cortez) Result Diagram: 11/01/17 1015 11/01/17 1015 Imaging Last [address] Angiography 11/01/17 1134 Signed Impressions: Service Date/Time: Wednesday, November 01, 2017 13:37 - CONCLUSION: 1. No evidence of PE. 2. 5 mm pulmonary nodule mid right lung. 3. No acute pulmonary infiltrates. Adriel Osuna MD Chest X-Ray 11/01/17 0000 Signed Impressions: Service Date/Time: Wednesday, November 01, 2017 10:33 - CONCLUSION: 1. Small right pleural effusion with focal atelectasis in the right lung base.. 2. The left lung is grossly clear. Adriel Osuna MD (Tona Cortez) Assessment and Plan Problem List: (1) Hyperkalemia ICD Codes: E87.5 - Hyperkalemia Status: Acute Plan: Possibly due to reduction in GFR Also may be diet related, had been drinking orange juice recently, having bananas (high K foods) Given Kayexalate, IV insulin, bicarb, IV calcium in ER Start NS@ 100 cc/hr Give a dose of Lasix 40 mg IV x 1 Repeat labs ordered for today Borderline hypotensive, overall very weak; Likely would not do well on emergent hemodialysis therefore best option is medical management and serial lab monitoring. D/W RN, family (2) LORENZO (acute kidney injury) ICD Codes: N17.9 - Acute kidney failure, unspecified Status: Acute Plan: Baseline creatinine 0.5 LORENZO may be due to prerenal azotemia Obtain UA, renal US Obtain urine electrolytes IVF ordered, 0.9% NS Severely hyperkalemic, see below Of note he was exposed to IV contrast today (3) Metastatic adenocarcinoma ICD Codes: C79.9 - Secondary malignant neoplasm of unspecified site Plan: Very poor prognosis, apparently no treatment is available. Palliative has been asked to clarify goals, currently meeting with family. Continue pain management. (Tona Cortez) Assessment and Plan above note reviewed, agree with above assessment and plan. Consider adrenal insufficiency. Obtain cortisol level. (Alli Mccormick MD) Tona Cortez November 01, 2017 15:31 Alli Mccormick MD November 01, 2017 21:53
[2017-11-01] MEDS ORDERED: FUROSEMIDE 40 MG/4 ML VIAL IV PUSH ONE (15:45)
[2017-11-01] MEDS: SODIUM CHLOR 0.9% 1000 ML INJ 1,000 ML IV SCH (15:57)
[2017-11-01] MEDS ORDERED: GLUCAGON 1 MG/ML VIAL IM PRN (16:45)
[2017-11-01] MEDS ORDERED: DEXTROSE 50% IN WATER 50 ML VIAL(D50) IV PUSH PRN (16:45)
[2017-11-01] MEDS: INSULIN ASPART SUPPLEMENTAL SCALE SQ SCH ×2 (17:00→21:00)
--- NOTE | 2017-11-01 19:03 | RADRPT ---
EXAM DATE/TIME: 11/01/2017 18:16 [place] COMPARISON: CT PULMONARY ANGIOGRAM, November 01, 2017, 13:37. INDICATIONS : Increased BUN/Creatnine. MEDICAL HISTORY : Asthma. Extreme weakness. Liver disease. Rectal and laryngeal cancer. Tendonitis right elbow. Chemoth erapy. Radiation therapy. SURGICAL HISTORY : Tonsillectomy. Colectomy and reversal. ENCOUNTER: Initial ACUITY: 3 days PAIN SCORE: 2/10 LOCATION: Bilateral flank MEASUREMENTS: RIGHT KIDNEY: 11.5 x 3.9 x 4.0 cm LEFT KIDNEY: 10.5 x 4.7 x 4.9 cm FINDINGS: Minimal free fluid. RIGHT KIDNEY: Renal cortex is normal in thickness and increased echotexture. No hydronephrosis, stone, or mass. LEFT KIDNEY: Renal cortex is normal in thickness and echotexture. No hydronephrosis, stone, or mass. BLADDER: Within normal limits given the degree of distension. CONCLUSION: 1. Right kidney is echogenic which can be seen with medical renal disease. 2. Minimal ascites. 3. Echogenic liver which can be seen with hepatic steatosis. Jason Cody MD on November 01, 2017 at 18:59 Board Certified Radiologist. This report was verified electronically.
[2017-11-01 19:07] LABS: BICARBONATE 24.4 MEQ/L (21.0-32.0); CALCIUM 9.6 MG/DL (8.5-10.1); CREATININE 1.38 MG/DL (0.60-1.30)
[2017-11-01] MEDS: RESP: ALBUTEROL 2.5 MG/IPRATROPIUM 0.5 MG NEB (SCH) NEB (20:04)
[2017-11-01] MEDS: HYDROmorphone HCL PF 0.5 MG/0.5 ML SYRINGE IV PUSH PRN (21:41)
[2017-11-01] MEDS: ONDANSETRON HCL 4 MG/2 ML VIAL IV PUSH PRN (21:54)
[2017-11-01 23:56] LABS: CALCIUM 8.8 MG/DL (8.5-10.1); CREATININE 1.27 MG/DL (0.60-1.30)
[2017-11-02] VITALS (7 sets, daily range): BP systolic 113–121; BP diastolic 70–83; PULSE 103–115; RESP 17–20; TEMP 97.3–97.8; O2SAT 97–100
[2017-11-02] MEDS: HYDROmorphone HCL PF 0.5 MG/0.5 ML SYRINGE IV PUSH PRN ×5 (01:19→13:39)
[2017-11-02] MEDS: SODIUM CHLOR 0.9% 1000 ML INJ 1,000 ML IV SCH ×2 (01:19→11:30)
[2017-11-02] MEDS ORDERED: HYDROmorphone HCL PF 2 MG/ML VIAL IV PUSH ONE (02:00)
[2017-11-02] MEDS: INSULIN ASPART SUPPLEMENTAL SCALE SQ SCH ×2 (08:00→12:00)
[2017-11-02] MEDS: RESP: ALBUTEROL 2.5 MG/IPRATROPIUM 0.5 MG NEB (SCH) NEB (08:32)
[2017-11-02] MEDS ORDERED: INSULIN HUMAN REGULAR 1,000 UNITS/10 ML VIAL IV PUSH ONE (09:00)
[2017-11-02] MEDS ORDERED: FUROSEMIDE 40 MG/4 ML VIAL IV PUSH ONE (09:00)
[2017-11-02] MEDS ORDERED: DEXTROSE 50% IN WATER 50 ML VIAL(D50) IV PUSH ONE (09:00)
[2017-11-02] MEDS: ONDANSETRON HCL 4 MG/2 ML VIAL IV PUSH PRN (09:24)
[2017-11-02] MEDS ORDERED: SODIUM POLYSTYRENE SULFONATE SUSP 15 GM/60 ML CUP PO ONE (10:00)
--- NOTE | 2017-11-02 10:38 | HHI.PR ---
Subjective Remarks pt on edge bed. looks miserable family present Objective Vitals miserable oriented sleepy cachectic firm palpable liver lower ext pitting edema Vital Signs Date Time Temp Pulse Resp B/P (MAP) Pulse Ox O2 Delivery O2 Flow Rate FiO2 11/02/17 10:06 18 11/02/17 08:36 98 Nasal Cannula 2.00 11/02/17 08:09 97.6 112 19 113/70 (84) 99 11/02/17 04:00 Nasal Cannula 2.00 11/02/17 04:00 97.7 105 20 116/83 (94) 100 11/02/17 04:00 110 11/02/17 00:00 97.3 115 20 121/81 (94) 100 11/02/17 00:00 107 11/02/17 00:00 Nasal Cannula 2.00 11/01/17 20:06 109 11/01/17 20:04 96 Nasal Cannula 2.00 11/01/17 20:00 Nasal Cannula 2.00 11/01/17 20:00 97.4 113 20 119/87 (98) 100 11/01/17 16:09 97.8 110 20 111/79 (90) 93 11/01/17 16:00 107 11/01/17 15:47 Nasal Cannula 2.00 11/01/17 15:08 Room Air 11/01/17 14:18 11/01/17 13:00 116 24 108/80 (89) 100 Nasal Cannula 2.00 11/01/17 12:24 100 Nasal Cannula 2.00 11/01/17 12:24 24 100 Nasal Cannula 2.00 11/01/17 12:00 110 26 128/90 (103) 100 Nasal Cannula 2.00 Result Diagram: 11/01/17 1015 11/01/17 [address] Angiography 11/01/17 1134 Signed Impressions: Service Date/Time: Wednesday, November 01, 2017 13:37 - CONCLUSION: 1. No evidence of PE. 2. 5 mm pulmonary nodule mid right lung. 3. No acute pulmonary infiltrates. Adriel Osuna MD Chest X-Ray 11/01/17 0000 Signed Impressions: Service Date/Time: Wednesday, November 01, 2017 10:33 - CONCLUSION: 1. Small right pleural effusion with focal atelectasis in the right lung base.. 2. The left lung is grossly clear. Adriel Osuna MD A/P Problem List: (1) Liver metastases ICD Codes: C78.7 - Secondary malignant neoplasm of liver and intrahepatic bile duct Status: Acute Plan: Metastatic liver disease Generalized weakness Poor oral intake, general decline Dehydration LORENZO Hyperkalemia - Pt is a 57 y/o male with hx of laryngeal cancer in 2016 and received radiation treatments under the care of Dr. Gamble in [place]. He subsequently developed a colorectal cancer in 2017 and had surgery and radiation. Pt was recently admitted to [facility] in early October 2017 with increased abdominal pain and girth and anemia. Prior to that admission he had CT Abd/pelvis which revealed multiple metastatic lesions in the liver. He had a CT-guided biopsy and the pathology from the liver biopsy is consistent with necrotic poorly differentiated non-small cell carcinoma. Immunohistochemical studies do not support a colon adenocarcinoma. He was seen in followup by Dr. 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 It was explained to him that stage IV disease is not curable and that all treatment would be palliative in nature according to that documentation. - Pt is overall quite weak with poor appetite and weight loss. He reportedly fell at home this morning due to generalized weakness and this is what prompted his evaluation in the ED today. - His labs at admission noted several abnormalities including Na 129, K 7.3, Cr 1.45, CO2 21, ALT 300, AST 1500. His baseline creatinine runs around 0.5. He was given IV insulin (10 units), sodium bicarbonate, Kayexalate , IV calcium gluconate. Repeat labs are pending. - Palliative Care has been consulted and goals of care were discussed with the pts family. - DVT prophylaxis with SCDs Today I met with pt//son....Pt would like comfort measures and will speak with hospice. and family in agreement. They would like increase pain meds. Pt clearly says he wants dnr status. They request hospice consult and family interested in care center. I spoke with his oncologist Dr Maldonado who is supportive of hospice. Hx of Laryngeal cancer Hx of colon cancer - See above (2) Hyperkalemia ICD Codes: E87.5 - Hyperkalemia Status: Acute (3) LORENZO (acute kidney injury) ICD Codes: N17.9 - Acute kidney failure, unspecified Status: Acute Kurt De Anda MD November 02, 2017 10:38
[2017-11-02] MEDS ORDERED: LORazepam 1 MG TAB PO PRN (10:45)
--- NOTE | 2017-11-02 11:13 | HHI.NPPN ---
Subjective Renal Failure: Acute Interval History Sitting on edge of bed, more alert. Edema persists. Renal function is better, potassium is 6 today. (Tona Cortez) Review of Systems General General Remarks generalized pain (Tona Cortez) Cardiovascular Cardiac: Edema (Tona Cortez) Objective Data Data Vital Signs Date Time Temp Pulse Resp B/P (MAP) Pulse Ox O2 Delivery O2 Flow Rate FiO2 11/02/17 10:06 18 11/02/17 08:36 98 Nasal Cannula 2.00 11/02/17 08:09 97.6 112 19 113/70 (84) 99 11/02/17 04:00 Nasal Cannula 2.00 11/02/17 04:00 97.7 105 20 116/83 (94) 100 11/02/17 04:00 110 11/02/17 00:00 97.3 115 20 121/81 (94) 100 11/02/17 00:00 107 11/02/17 00:00 Nasal Cannula 2.00 11/01/17 20:06 109 11/01/17 20:04 96 Nasal Cannula 2.00 11/01/17 20:00 Nasal Cannula 2.00 11/01/17 20:00 97.4 113 20 119/87 (98) 100 11/01/17 16:09 97.8 110 20 111/79 (90) 93 11/01/17 16:00 107 11/01/17 15:47 Nasal Cannula 2.00 11/01/17 15:08 Room Air 11/01/17 14:18 11/01/17 13:00 116 24 108/80 (89) 100 Nasal Cannula 2.00 11/01/17 12:24 100 Nasal Cannula 2.00 11/01/17 12:24 24 100 Nasal Cannula 2.00 11/01/17 12:00 110 26 128/90 (103) 100 Nasal Cannula 2.00 (Tona Cortez) -: 11/01/17 1015 11/01/17 2324 Imaging Last [address] Angiography 11/01/17 1134 Signed Impressions: Service Date/Time: Wednesday, November 01, 2017 13:37 - CONCLUSION: 1. No evidence of PE. 2. 5 mm pulmonary nodule mid right lung. 3. No acute pulmonary infiltrates. Adriel J. Siragusa, MD Renal Ultrasound 11/01/17 0000 Signed Impressions: Service Date/Time: Wednesday, November 01, 2017 18:16 - CONCLUSION: 1. Right kidney is echogenic which can be seen with medical renal disease. 2. Minimal ascites. 3. Echogenic liver which can be seen with hepatic steatosis. Jason Cody MD Chest X-Ray 11/01/17 0000 Signed Impressions: Service Date/Time: Wednesday, November 01, 2017 10:33 - CONCLUSION: 1. Small right pleural effusion with focal atelectasis in the right lung base.. 2. The left lung is grossly clear. Adriel Osuna MD (Tona Cortez) Physical Exam General Appearance: No Acute Distress, Malnourished Appearance Remarks cachectic (Tona Cortez) Throat Throat Exam: Oral Mucosa [place] & Moist (Tona Cortez) Pulmonary Resp Exam: Clear Bilaterally, Breath Sounds Equal (Tona Cortez) Cardiology CV Exam: Regular, Normal Sinus Rhythm (Tona Cortez) Gastrointestinal/Abdomen GI Exam: Distended GI Remarks firm abdomen, normal BS, BM today (Tona Cortez) Musculoskeletal MS Exam: Joints Intact (Tona Cortez) Extremeties Extremities Exam: Pedal Pulses Palpable, Dependent Edema Extremeties Remarks 3+ edema (Tona Cortez) Neurologic Neuro Exam: Alert, Awake, Oriented, Moving All Extremities (Tona Cortez) Psychiatric Psych Exam: Appropriate Responses (Tona Cortez) Assessment/Plan Discussed Condition With: Patient, Relative Electrolyte Assessment: Hyperkalemia Problem List: (1) Hyperkalemia ICD Codes: E87.5 - Hyperkalemia Status: Acute Plan: Possibly due to reduction in GFR Give additional IV insulin, dextrose, Kayexalate, Lasix 40 IV On NS@ 100 cc/hr (2) LORENZO (acute kidney injury) ICD Codes: N17.9 - Acute kidney failure, unspecified Status: Acute Plan: Baseline creatinine 0.5 Improving LORENZO may be due to prerenal azotemia,. also given IV contrast IVF is 0.9% NS Severely hyperkalemic, see below (3) Metastatic adenocarcinoma ICD Codes: C79.9 - Secondary malignant neoplasm of unspecified site Plan: Very poor prognosis, apparently no treatment is available. Palliative has been asked to clarify goals, currently meeting with family. Continue pain management. Plan Family has decided to convert to hospice. Will Sign off at this time (Tona Cortez) Plan Patient will be going to hospice. (Alli Mccormick MD) Tona Cortez November 02, 2017 11:13 Alli Mccormick MD November 03, 2017 15:29
--- NOTE | 2017-11-02 13:02 | HHI.HCPN ---
Reason for visit a. To assist with evaluation and management of symptoms including: Pain, weakness b. To assist medical decision maker(s) with: better understanding of current medical conditions; weighing benefits/burdens of medical treatment options; making medical treatment decisions. Subjective/Interval History Pt seen to follow up on pain, goals. Medical attending d/w pt,family conditions yesterday after my consultation. Repeat labs yesterday evening= still hyponatremic, Na 132, hyperkalemic 6.0. Pt still w significant abdominal pain, was on 0.5mg Dilaudid prn, has used x4, this am was changed to 1mg per medical attending. 1 mg PRN ativan also added. Family elected DNR, hospice this morning per medical attending. Pt seen in room son, at bedside. He is leaned forward sleeping in bed. He does not awake to my exam or interaction. Son indicates they have just met w hospice and pt,family want comfort measures only, and planned for transfer to care center around 130Pm today. Son indicates pt a little more comfortable now after dose adjustment of dilaudid. Voices appreciation of palliative support, they have no additional questions. . Advance Directives Living Will: Never completed Health Care Surrogate: Never completed Durable Power of Printing Plate Setter: Never completed Advance Directive Specifics Significant change in goals: , family elected hospice today 11/02 Objective Vital Signs Date Time Temp Pulse Resp B/P (MAP) Pulse Ox O2 Delivery O2 Flow Rate FiO2 11/02/17 12:26 97.8 103 17 115/72 (86) 97 11/02/17 10:06 18 11/02/17 08:36 98 Nasal Cannula 2.00 11/02/17 08:30 Nasal Cannula 2.00 11/02/17 08:09 97.6 112 19 113/70 (84) 99 11/02/17 04:00 Nasal Cannula 2.00 11/02/17 04:00 97.7 105 20 116/83 (94) 100 11/02/17 04:00 110 11/02/17 00:00 97.3 115 20 121/81 (94) 100 11/02/17 00:00 107 11/02/17 00:00 Nasal Cannula 2.00 11/01/17 20:06 109 11/01/17 20:04 96 Nasal Cannula 2.00 11/01/17 20:00 Nasal Cannula 2.00 11/01/17 20:00 97.4 113 20 119/87 (98) 100 11/01/17 16:09 97.8 110 20 111/79 (90) 93 11/01/17 16:00 107 11/01/17 15:47 Nasal Cannula 2.00 11/01/17 15:08 Room Air 11/01/17 14:18 11/01/17 13:00 116 24 108/80 (89) 100 Nasal Cannula 2.00 Intake & Output 11/02/17 11/02/17 07:00 19:00 Intake Total 1557 ml Output Total 450 ml Balance 1107 ml Intake Oral 410 ml IV Total 1147 ml Output Urine Total 450 ml # Bowel Movements 0 Physical Exam CONSTITUTIONAL/GENERAL: Extremely frail cachectic male, lethargic/sleeping soundly TUBES/LINES/DRAINS: Peripheral IV bilateral upper extremities SKIN: No wounds seen anteriorly. Skin warm and dry. Feet are cool. HEAD: Atraumatic. Normocephalic. CARDIOVASCULAR: Regular rate and rhythm without murmur. Peripheral pulses symmetric. Significant pedal, lower leg edema, feet are cool to touch left more so than right. Pedal pulses faint/thready RESPIRATORY/CHEST: Symmetric, unlabored respirations. On room air. mildy tachypneic 22. Clear to auscultation, some crackles to bases. Breath sounds equal bilaterally. GASTROINTESTINAL: Abdomen soft, +tender, +distended/firm, limited palp as is leaning forward sleeping. Large firm mass encompassing entire abdomen. Bowel sounds not heard MUSCULOSKELETAL: Extremities without clubbing, cyanosis.+3 Edema to feet, lower legs.joint tenderness or effusion noted. No calf tenderness. No mottling or clubbing. NEUROLOGICAL: Very lethargic/sleeping soundly does not stir during my exam. PSYCHIATRIC: No obvious anxiety/depression. limited assessment 2/2 lethargy . Diagnostic Tests Laboratory Laboratory Tests Test 11/01/17 10:15 11/01/17 17:51 11/01/17 23:24 11/02/17 09:04 White Blood Count 18.8 TH/MM3 (4.0-11.0) Red Blood Count 3.45 MIL/MM3 (4.50-5.90) Hemoglobin 10.6 GM/DL (13.0-17.0) Hematocrit 31.9 % (39.0-51.0) Mean Corpuscular Volume 92.2 FL (80.0-100.0) Mean Corpuscular Hemoglobin 30.7 PG (27.0-34.0) Mean Corpuscular Hemoglobin Concent 33.2 % (32.0-36.0) Red Cell Distribution Width 16.3 % (11.6-17.2) Platelet Count 266 TH/MM3 (150-450) Mean Platelet Volume 9.6 FL (7.0-11.0) Neutrophils (%) (Auto) 94.3 % (16.0-70.0) Lymphocytes (%) (Auto) 1.4 % (9.0-44.0) Monocytes (%) (Auto) 3.9 % (0.0-8.0) Eosinophils (%) (Auto) 0.0 % (0.0-4.0) Basophils (%) (Auto) 0.4 % (0.0-2.0) Neutrophils # (Auto) 17.7 TH/MM3 (1.8-7.7) Lymphocytes # (Auto) 0.3 TH/MM3 (1.0-4.8) Monocytes # (Auto) 0.7 TH/MM3 (0-0.9) Eosinophils # (Auto) 0.0 TH/MM3 (0-0.4) Basophils # (Auto) 0.1 TH/MM3 (0-0.2) CBC Comment DIFF FINAL Differential Comment Prothrombin Time 17.9 SEC (9.8-11.6) Prothromb Time International Ratio 1.8 RATIO Activated Partial Thromboplast Time 25.9 SEC (24.3-30.1) D-Dimer Quantitative (PE/DVT) 21.80 MG/L FEU (0.00-0.50) Blood Urea Nitrogen 61 MG/DL (7-18) 66 MG/DL (7-18) 68 MG/DL (7-18) Creatinine 1.45 MG/DL (0.60-1.30) 1.38 MG/DL (0.60-1.30) 1.27 MG/DL (0.60-1.30) Random Glucose 57 MG/DL (74-106) 100 MG/DL (74-106) 78 MG/DL (74-106) Total Protein 6.3 GM/DL (6.4-8.2) Albumin 1.9 GM/DL (3.4-5.0) Calcium Level 8.9 MG/DL (8.5-10.1) 9.6 MG/DL (8.5-10.1) 8.8 MG/DL (8.5-10.1) Alkaline Phosphatase 1349 U/L (45-117) Aspartate Amino Transf (AST/SGOT) 1528 U/L (15-37) Alanine Aminotransferase (ALT/SGPT) 303 U/L (12-78) Total Bilirubin 4.6 MG/DL (0.2-1.0) Sodium Level 129 MEQ/L (136-145) 130 MEQ/L (136-145) 132 MEQ/L (136-145) Potassium Level 7.3 MEQ/L (3.5-5.1) 5.6 MEQ/L (3.5-5.1) 6.0 MEQ/L (3.5-5.1) Chloride Level 90 MEQ/L (98-107) 91 MEQ/L (98-107) 93 MEQ/L (98-107) Carbon Dioxide Level 21.6 MEQ/L (21.0-32.0) 24.4 MEQ/L (21.0-32.0) 25.0 MEQ/L (21.0-32.0) Anion Gap 17 MEQ/L (5-15) 15 MEQ/L (5-15) 14 MEQ/L (5-15) Estimat Glomerular Filtration Rate 60 ML/MIN (>89) 64 ML/MIN (>89) 70 ML/MIN (>89) B-Type Natriuretic Peptide 64 PG/ML (0-100) Lipase 31 U/L (73-393) Random Cortisol 104.7 MCG/DL Result Diagram: 11/01/17 1015 11/01/17 1093 Assessment and Plan Disease Oriented Problem List: (1) H/O laryngeal cancer (2) H/O malignant neoplasm of rectum (3) COPD (chronic obstructive pulmonary disease) (4) Elevated d-dimer (5) Liver metastases (6) Transaminitis Symptom Scale: (1) Pain, abdominal (2) Weakness Pertinent Non-Medical Issues Psychosocial:. Originally from [place] though has lived in [place] for many years. Supported by 3 stepchildren, 2 of which are present today for my meeting, they are from [place]. 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 Spiritual: Jewish jennifer, well supported by outside jennifer community. Does not want traveling electrician visit at this time Legal:Patient with some mild confusion. Patient very lethargic. Patient does not appear able to make his own informed decisions. Per [place] statutes his would be appropriate legal proxy. She is making decisions with support of their children. She wishes to include him when he is awake enough to participate. Ethical issues impacting care: No ethical issues identified Important Contacts spouse Cristian Wade [phone] . Prognosis This patient was admitted for pain and weakness. He has fairly new findings of metastatic liver cancer. He has history of laryngeal, and colorectal cancers. Has recently been seen by oncology who was only able to offer palliative chemotherapy. He is malnourished. He is weak. + Leukocytosis. High risk for further decline, , even with ongoing supportive measures. Appropriate for hospice if goals compatible. Code Status: No Code Plan Legal decision maker:Patient with some mild confusion. Patient very lethargic. Patient does not appear able to make his own informed decisions. Per [place] statutes his would be appropriate legal proxy. She is making decisions with support of their children. She wishes to include him when he is awake enough to participate. Goals: family has elected hospice 11/02/17, transfer to care center planned 1pm CODE STATUS: DNR SYMPTOMS: --Abdominal pain-patient with recently diagnosed metastatic liver lesion. Very large liver mass. + Acute renal failure. had prn hydromorphone 0.5mg IV available; not effective increased to 1mg this am, appears effective now. Will continue to evaluate. planned for transfer to hospice care center shortly --Weakness-patient with multiple falls in the past few days. Profound weakness. Deconditioning significant weight loss over the past few weeks. Likely secondary to advancing disease process as well as malnutrition and very little oral intake. Not likely reversible at this point unless underlying etiologies were able to be addressed. --Respiratory-high risk for dyspnea and respiratory distress secondary to altered mental status, hepatic encephalopathy, though currently breathing comfortably on room air. Palliative care will continue to follow during hospital course as condition evolves, to assist patient/decision-maker with understanding of medical conditions, weighing benefits/burdens of treatment options, for clarification of goals of treatment. Additionally will assist with any symptoms of palliative concern Attestation To help prompt me to consider important information that might be impacting today's encounter and assessment, information from prior notes written by myself or my colleagues may have been "brought forward" into today's note. My signature on this note, however, is an attestation that I personally performed the exam, history, and/or decision-making noted today, and, unless otherwise indicated, the interactions with patient, family, and staff as well as the review of records all occurred today. I also attest that the listed assessment and stated plan reflect my best clinical judgment today based on the combination of historical information, prior notes, and today's exam/ interactions. When time spent is documented, it refers only to time spent today by the signer, or if indicated, combined time spent today by collaborating physician/nurse practitioner. Amy Gonzalez November 02, 2017 13:02
[2017-11-02] MEDS ORDERED: GLYCOPYRROLATE 0.2 MG/ML VIAL IV PUSH PRN (13:30)
[2017-11-02] MEDS ORDERED: HYDROmorphone HCL PF 1 MG/ML VIAL IV PUSH ONE (13:30)
--- NOTE | 2017-11-03 00:31 | MB ---
cc: Osman Maldonado MD DATE: 11/02/2017 REASON FOR CONSULTATION: The patient with a history of head and neck cancer and colon cancer, now with progressive metastatic disease in the liver, who presents to the emergency room with declining performance status. HISTORY OF PRESENT ILLNESS: This is a 57-year-old male who has a history of 2 synchronous malignancies. 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 He subsequently also developed colorectal cancer, underwent surgery and radiation. We are in the process of receiving records from his previous radiation oncologist. It is unclear whether he received any chemotherapy. With respect to his colon cancer, he had undergone left-sided colectomy and lower anterior resection with anastomosis. He did not followup with the medical oncologist. This was a moderately differentiated adenocarcinoma which invaded through the muscularis propria into the pericolonic tissue. No lymph node involvement was noted. The patient recently became progressively weak and presented to the hospital with abdominal distention. A CT scan of the abdomen revealed multiple metastatic lesions in the liver. The patient was stabilized during his hospital stay. Biopsy for liver lesions were obtained. He was subsequently discharged from the hospital. The patient followed up in the oncology clinic. Biopsy results were reviewed with the patient. This appeared to be a necrotic, poorly differentiated non-small cell carcinoma. Immunohistochemical studies did not support a colon adenocarcinoma primary. This was thought to be either lung primary or another upper GI malignancy. The patient was scheduled for a PET scan, a port placement and initiation of chemotherapy with carboplatin and Taxol. It was discussed with the patient that he has advanced disease which is not curable and all treatments will be palliative in nature. The patient has continued to decline. He was admitted to the hospital with intractable abdominal pain and feeling unwell. He he had poor oral intake, is unable to ambulate. He had multiple lab abnormalities including hyponatremia, hyperkalemia, acute kidney failure. On my exam, the patient appears to be quite lethargic. He is sitting up. His head is down, but he lifted face up occasionally to have a conversation. His family is present at bedside. I have had a discussion with Dr. De Anda about this patient as well. Overall, the patient's performance status is significantly declined. He is quite weak. He has advanced disease. He has significant abdominal distention. I had a long discussion with the patient's family as well. I explained to them that the patient has advanced stage disease and, at this point, due to significantly declining performance status, he would not be a candidate for chemotherapy. I would recommend palliative care measures to control his pain and nausea. I tried to discuss this with the patient as well. He was not an active participant in this conversation since he is quite lethargic. I did discuss the situation with his . She inquired whether chemotherapy would be possible at all and I explained to her that it is unlikely that the patient will clinically improve given the extent of his metastatic disease and various metabolic abnormalities. After a long discussion, the family has decided that they will pursue palliative care with hospice. REVIEW OF SYSTEMS: A comprehensive review of system was completed, which is negative except as described in the HPI. PAST MEDICAL HISTORY: History of laryngeal cancer, status post chemotherapy and radiation, history of rectal cancer, widely metastatic disease to the liver. PAST SURGICAL HISTORY: Colon surgery, history of ileostomy revision, history of left neck lymph node excision. FAMILY HISTORY: Was reviewed and is noncontributory to this admission. SOCIAL HISTORY: He does not smoke cigarettes. He does not drink alcohol, no illicit drug use. He is . MEDICATIONS: Dilaudid 1 mg p.r.n., Ativan 1 mg p.o. every .6 hours p.r.n., sliding scale insulin, Lasix 40 mg IV p.r.n., Zofran p.r.n. ALLERGIES: HE IS ALLERGIC TO SULFA DRUGS. PHYSICAL EXAMINATION: VITAL SIGNS: Blood pressure is 115/72, pulse is in the 100s, temperature is 97.8, O2 saturation 97% on 2 liters of nasal cannula. GENERAL: Acutely ill patient who is cachectic, weak and frail. He is quite lethargic. HEENT: Pupils are equal, round and reactive to light. EOMI. No thrush, no lesion. NECK: Supple. No JVD. No bruits or lymphadenopathy. CHEST: Clear to auscultation bilaterally. CARDIAC: S1, S2, tachycardic. ABDOMEN: Distended, diffusely tender. Large liver is palpated. Contour of the liver is irregular, indicating presence of multiple masses. EXTREMITIES: No edema, erythema, cyanosis. SKIN: Without petechiae, lesions or bruises. NEUROLOGIC: No focal deficits, but he is severely lethargic. IMAGING: CT angiogram did not show any evidence of pulmonary embolism. There was a 2.5 mm pulmonary nodule in the right middle lung. Chest x-ray shows a small right pleural effusion. Renal ultrasound did not show any hydronephrosis. The right kidney was echogenic, which can be seen in medical renal disease. LABORATORY DATA: WBC 18.8, hemoglobin 10.6, platelet count 266. Serum chemistry, sodium 132, potassium 6, chloride 93, CO2 25, BUN of 68, creatinine is 1.27. PT is 17.9, INR 1.8, PTT 25.9. D-dimers were elevated at 21.8. ASSESSMENT AND PLAN: This is a 57-year-old male who has a history of 2 synchronous malignancies, history of laryngeal cancer and colorectal cancer. He has progressive metastatic disease to the liver. He presents to the emergency room with worsening fatigue, lethargy, severe abdominal pain and declining overall physical status. Advanced stage disease, with liver metastases. The patient has clinically significant decline. After a long discussion with the family, the patient has decided to pursue palliative care and hospice. The patient will be discharged home today. We will increase his pain medications. He will be given IV Dilaudid at this time, since he is in significant amount of pain. He also had increased secretions. We will give him glycopyrrolate prn. This was a long discussion. I spent in excess of 50 minutes with the patient and his family in which emotional support was provided. Continue supportive care with a goal of keeping the patient comfortable. Okay to discharge with hospice. MD TISHA Morel/YUMI , 11:53 PM , 12:30 AM ELGIN
== END 2017-11-02 13:55 | disposition hospice, inpatient (51) | DRG 436 ==
LOC: NEPE 09:39 → NEDA 11:53 → N04B 14:22
PROVIDERS: ADMIT Hospitalist; ATTEND Hospitalist
DX: C78.7 Secondary malignant neoplasm of liver and intrahepatic bile duct (principal); N17.9 Acute kidney failure, unspecified; E46 Unspecified protein-calorie malnutrition; K72.90 Hepatic failure, unspecified without coma; E87.1 Hypo-osmolality and hyponatremia; J98.11 Atelectasis; E86.0 Dehydration; E87.5 Hyperkalemia; R29.6 Repeated falls; J44.9 Chronic obstructive pulmonary disease, unspecified; Z51.5 Encounter for palliative care; Z66 Do not resuscitate; Z85.048 Personal history of other malignant neoplasm of rectum, rectosigmoid junction, and anus; Z85.21 Personal history of malignant neoplasm of larynx; Z87.891 Personal history of nicotine dependence; Z88.2 Allergy status to sulfonamides; Z92.3 Personal history of irradiation
CPT/HCPCS: 71045; 71275; 76775; 80048; 80053; 82533; 82948; 83690; 83880; 85025; 85379; 85610; 85670; 85730; 94640; 94664; 99291; J1170; J1815; J1940; J2405; J7030; Q9967